=== PATIENT | female | born 1945 | race Caucasian/White ===

== ENCOUNTER 2022-05-19 12:00 | Emergency (ER) | payer MEDICARE, MEDICAID, SELFPAY ==
[2022-05-19 12:03] VITALS: BP 153/80; PULSE 94; RESP 16; TEMP 36.2; O2SAT 95; BMI 41.8
--- NOTE | 2022-05-19 12:43 | CT_ITS ---
EXAM: CT HEAD WITHOUT INTRAVENOUS CONTRAST CLINICAL INDICATION: Injury/Pain TECHNIQUE: Multiple axial images were obtained of the head without intravenous contrast. This CT exam was performed using one or more of the following dose reduction techniques: automated exposure control, adjustment of the mA and/or kV according to patient size, and/or use of iterative reconstruction technique. This report was created using [employer] report generation technology. COMPARISON: None. FINDINGS: BRAIN AND EXTRA-AXIAL SPACES: Prominence of the cortical sulci and ventricles related to volume loss change. No intra- or extra-axial hemorrhage. No evidence of acute infarct. No intracranial mass or mass effect. There is preservation of the townsend/white matter interface. Posterior fossa structures are unremarkable. Basal cisterns are patent. BONES/JOINTS: Normal. No discrete lytic or blastic abnormalities. SINUSES: Unremarkable as visualized. No acute sinusitis. MASTOID AIR CELLS: Normal. Clear. ORBITS: Visualized globes, extraocular muscles, optic nerves and retrobulbar fat appear unremarkable. CT/Brain/Head without Contrast IMPRESSION: 1. No acute intracranial abnormality. 2. Senescent changes. Electronically Signed: Jovon Pinto MD at 13:23 EST ,
--- NOTE | 2022-05-19 13:00 | EDS_ITS ---
HPI History of Present Illness Chief Complaint: Head Injury Informant: patient Onset/Context/Timing Onset: Today Mechanism/Context: Fall Quality of Pain: Dull Location: Head Worsened by: Nothing Relieved by: Nothing Associated Symptoms Associated Symptoms: Negative for Parasthesias, Weakness, Loss of function, Inability to ambulate or Loss of consciousness Narrative Narrative: Patient presents after a fall that occurred today. Patient states she was sitting on her bed when she fell forward. Patient states she hit her head on the nightstand. Patient denies any loss of consciousness. Patient denies any paresthesias or weakness. Patient states her pain is mainly over the left side of her head. Patient states nothing makes it better nothing makes it worse. Patient denies any visual changes. Patient states her last tetanus was more than 10 years ago. Tetanus Immunization: >10 years [facility] Medical History (Updated 05/19/22 @ 14:[address] Vinny Flowers DO) Anxiety Hypertension Allergy/AdvReac Type Severity Reaction Status Date / Time Sulfa (Sulfonamide Allergy Rash Verified 05/19/22 13:02 Antibiotics) Surgical History (Updated 05/19/22 @ 13:[address] Vinny Flowers DO) History of total left hip replacement Social History Smoking Status: Never smoker ROS ROS ED Constitutional Constitutional ED: Denies chills or fever(s) Eyes Eyes: Denies blurry vision or change in vision ENT ENT ED: Denies rhinorrhea or sore throat Cardiovascular Cardiovascular: Denies chest pain or palpitations Respiratory/Chest Respiratory/Chest: Denies cough or dyspnea Gastrointestinal Gastrointestinal: Denies nausea or vomiting Genitourinary Genitourinary ED: Denies dysuria or hematuria Musculoskeletal Musculoskeletal: Denies back pain or neck pain Integumentary Denies abscess or rash Neurologic Neurologic: Denies headache(s) or weakness Allergic/Immunologic Allergic/Immunologic ED: Denies mouth swelling or urticaria EXAM Physical Exam Const Vital Signs: 05/19/22 12:03 Temperature 97.2 F L Temperature Source Oral Pulse Rate 94 Respiratory Rate 16 Blood Pressure 153/80 H Blood Pressure Mean 104 Pulse Ox 95 Oxygen Delivery Method Room Air Positive well nourished and well developed General Appearance ED: well developed and NAD HEENT HEENT Narrative: There is some mild tenderness over the left parietal scalp. There is a 3 cm full-thickness linear laceration. There is mild gapping of the wound margins. There is no active bleeding. There is no bony crepitance or step-off. There are no foreign bodies visualized. Eyes PERRL and EOMs intact bilaterally Neck full ROM Resp normal respiratory effort and clear to auscultation bilaterally Cardio regular rhythm Rate: regular rate GI normal to inspection, nondistended, normoactive bowel sounds and non-tender Palpation: soft Neuro oriented x3, CN's II-XII intact bilaterally, moves all extremities, no focal motor deficits and no sensory deficits noted Sensorium / Orientation: alert Motor Exam: strength 5/5 throughout MDM MDM MDM Narrative Medical decision making narrative: CT scan of the brain was obtained. There is no acute intracranial abnormality. This was interpreted by the radiologist and reviewed by myself. The wound was cleaned and irrigated with copious amounts of normal saline. LET gel was applied to the wound. The wound was anesthetized with 2% lidocaine with epinephrine. The wound was closed with 5 simple rubio. Patient tolerated the procedure well. Bacitracin dressing was applied. Patient was instructed to follow-up with her primary care physician in 5 to 7 days. Patient understood and was agreeable with the plan. All questions were answered. Radiography Diagnostic Testing: Clinical Impression(s) from Imaging Studies Brain CT 05/19/22 12:43 IMPRESSION: 1. No acute intracranial abnormality. 2. Senescent changes. Electronically Signed: Jovon Pinto MD at 13:23 EST Reading Location ID and State: [facility] / [place] Tel , Service support , Discharge Plan Triage Chief Complaint: Head Injury ED Provider: Vinny Flowers Dx/Rx/DC Orders Clinical Impression: Laceration of scalp, Closed head injury Instructions: ED Head Injury (Adult), ED Laceration Scalp Stitches or Rubio Primary Care Provider: Care Physician,No Primary Referrals: Trang Aguilar MD [Med Staff - Video Network Engineer] - 5 Days for suture removal Care Physician,No Primary [Primary Care Provider] - Disposition Disposition: Home, Self Care
[2022-05-19] MEDS: Diphth,Pertuss(Acell),Tet Vac 0.5 ML Vial IM (13:32)
[2022-05-19] MEDS: Lidocaine 2% /Epi 1:100 (20ml) 20 ML VIAL INFILT (13:33)
[2022-05-19] MEDS: Lidocaine/Epi/Tetracaine 50 ML 1 APPLIC TOPICAL (13:33)
[2022-05-19 14:55] VITALS: BP 150/70; PULSE 90; RESP 16; O2SAT 96
== END 2022-05-19 15:19 | disposition home or self-care (01) ==
PROVIDERS: Emergency Provider Emergency Medicine; Visit Provider Emergency Medicine
DX: S01.01XA Laceration without foreign body of scalp, initial encounter (principal); W19.XXXA Unspecified fall, initial encounter
CPT/HCPCS: 12002; 70450; 90715; 96372; 99284

== ENCOUNTER 2022-09-22 13:24 | Observation (INO) | payer MEDICARE, MEDICAID, SELFPAY ==
[2022-09-22] VITALS (8 sets, daily range): BP systolic 100–168; BP diastolic 56–75; PULSE 84–109; RESP 15–22; TEMP 36.4–37; O2SAT 94–100; BMI 41.2; BMI 40.8
--- NOTE | 2022-09-22 13:45 | ED.RN ---
PATIENT COVERED IN URINE AND STOOL. PATIENT REQUESTING PANTS BE THROWN AWAY. PATIENT HAD A CLOTH TO TRY TO CLEAN UP STOOL AT HOME. WIPES AND WASH CLOTH USED TO CLEAN PATIENT. ADULT DIAPER AND GOWN PLACED.
--- NOTE | 2022-09-22 13:51 | CT_ITS ---
HISTORY: trauma. TECHNIQUE: Multiple axial images were obtained of the head without intravenous contrast. A radiation dose optimization technique was used for this scan. 256 images. COMPARISON: 05/19/2022. FINDINGS: BRAIN PARENCHYMA: Multiple foci and zones of low attenuation in the bilateral cerebral white matter compatible with chronic small vessel ischemic gliosis. No acute intra-axial hemorrhage identified. CSF SPACES: Generalized volume loss. No midline shift or other significant mass effect. No acute extra-axial hemorrhage seen. Chronic calcifications along the falx and tentorium. OTHER: Intact calvarium. No significant air fluid levels in the paranasal sinuses or mastoid air cells. Left lens resection. CT/Brain/Head without Contrast IMPRESSION: No acute intracranial process identified. Chronic involutional and white matter changes. Electronically Signed: Madelyn Solorzano MD at 15:08 EDT ,
--- NOTE | 2022-09-22 13:51 | RAD_ITS ---
HISTORY: fall. TECHNIQUE: XR Pelvis 1 or 2 Views. COMPARISON: None. FINDINGS: OSSEOUS STRUCTURES: No acute displaced fracture identified. Note that overlapping bowel shadows may obscure osseous detail. JOINT SPACES: Right hip arthroplasty in place without dislocation. Severe arthritis of the left hip with severe joint space narrowing, sclerosis, osteophytes, and acetabular remodeling. No left hip dislocation. SOFT TISSUES: Right hip heterotopic ossification noted. RAD/Pelvis 1 or 2 Views IMPRESSION: No acute displaced fracture or dislocation identified. Severe left hip arthritis. Electronically Signed: Madelyn Solorzano MD at 15:30 EDT ,
--- NOTE | 2022-09-22 13:51 | RAD_ITS ---
HISTORY: fall. TECHNIQUE: XR Chest 1 View. COMPARISON: None. FINDINGS: CARDIOMEDIASTINAL BORDERS: Cardiac silhouette within normal limits in size. Mediastinal contour unremarkable with calcification of the aorta. LUNGS: Low lung volumes with mild atelectasis or scarring. PLEURA: No pleural effusion or pneumothorax seen. OSSEOUS STRUCTURES: Degenerative change. RAD/Chest 1 View (Portable) IMPRESSION: No acute cardiopulmonary process identified. Electronically Signed: Madelyn Solorzano MD at 15:33 EDT ,
--- NOTE | 2022-09-22 13:52 | EKG12_ITS ---
Test Reason : FALL Blood Pressure : / mmHG Vent. Rate : 095 BPM Atrial Rate : 095 BPM P-R Int : 184 ms QRS Dur : 142 ms QT Int : 400 ms P-R-T Axes : 066 -38 047 degrees QTc Int : 502 ms Normal sinus rhythm Left axis deviation Right bundle branch block Abnormal ECG Confirmed by BONG PIERSON, SYDNEE ([id number]), editor sound MICHELLE BRAMBILA ([id number]) on 09/24/2022 11:15:56 AM Referred By: Confirmed By:RONNELL WOODY MD
--- NOTE | 2022-09-22 13:53 | EX.ED.GENINJ ---
HPI History of Present Illness Chief Complaint: Fall Detail of Chief Complaint: Fall with injury to left hip Informant: patient Narrative Narrative: Patient presents to the emergency department with complaint of a fall and injury to her left hip. Patient cannot really tell me how she fell last night but ended up behind her bedroom door on the floor and could not get back up. Her boyfriend found her this morning on the floor. EMS was called. Patient lives alone. Patient unsure if she hit her head. She denies neck pain. She denies chest pain or abdominal pain. Patient states she could not get up and spent the night on the floor. She tells me she had a right hip replacement in the past. [facility] Medical History (Updated 09/22/22 @ 16:[address] Diana Rodriguez DO) Anxiety Hypertension Allergy/AdvReac Type Severity Reaction Status Date / Time Sulfa (Sulfonamide Allergy Rash Verified 09/22/22 13:49 Antibiotics) Surgical History History of total left hip replacement Social History Smoking Status: Never smoker ROS ROS ED Review of Systems ROS Unobtainable: other Constitutional Constitutional ED: Reports lethargy; Denies chills, fever(s), sweats or weight loss Eyes Eyes: Denies blurry vision, change in vision or diplopia ENT ENT ED: Denies rhinorrhea or sore throat Cardiovascular Cardiovascular: Denies chest pain, orthopnea or racing heartbeat Respiratory/Chest Respiratory/Chest: Denies cough, dyspnea, dyspnea on exertion, orthopnea or sputum Gastrointestinal Gastrointestinal: Denies abdominal pain, diarrhea, nausea or vomiting Genitourinary Genitourinary ED: Denies dysuria, hematuria or urinary frequency Musculoskeletal Musculoskeletal: Reports other Details: Left hip pain ; Denies arthralgias, back pain, myalgias or neck pain Integumentary Denies abscess, Abrasions or rash Neurologic Neurologic: Denies headache(s) or weakness Psychiatric Psychiatric: Denies anxiety, depression or suicidal thoughts Endocrine Endocrinology: Denies polydipsia, polyphagia or polyuria Hematologic/Lymphatic Hematologic/Lymphatic: Denies easy bleeding, easy bruising or lymphadenopathy Allergic/Immunologic Allergic/Immunologic ED: Denies mouth swelling, tongue swelling or urticaria EXAM Physical Exam Const Vital Signs: 09/22/22 13:24 09/22/22 13:39 09/22/22 13:49 Temperature 97.6 F L 97.6 F L Temperature Source Temporal Pulse Rate 103 H 109 H Respiratory Rate 18 15 Respiratory Effort Normal Non-Labored Respiratory Depth Normal Respiratory Pattern Normal Blood Pressure 110/60 147/73 H Blood Pressure Mean 76 97 Pulse Ox 100 100 97 Oxygen Delivery Method Room Air Room Air Room Air 09/22/22 15:24 Temperature Temperature Source Pulse Rate 99 Respiratory Rate 22 H Respiratory Effort Respiratory Depth Respiratory Pattern Blood Pressure 100/75 Blood Pressure Mean 83 Pulse Ox 97 Oxygen Delivery Method Room Air Positive well nourished and well developed General Appearance ED: well developed and NAD HEENT Reports TM's clear and moist mucous membranes normocephalic and atraumatic; Negative for trauma or tenderness Tympanic Membrane ED: Yes TM's clear Eyes PERRL and EOMs intact bilaterally General Eye ED: Negative for pale conjunctiva or scleral icterus Neck no lymphadenopathy, supple and no JVD General: Negative for tenderness Chest Wall inspection of chest normal and palpation of chest normal Chest: Negative for tenderness Resp normal respiratory effort and clear to auscultation bilaterally Effort and Inspection: Negative for respiratory distress or pain with movement Auscultation: Negative for rhonchi, wheezes or diminished lung sounds Cardio regular rate, regular rhythm, S1 normal heart sound, S2 normal heart sound and no murmurs Peripheral Pulses: pulses 2+ throughout GI normal to inspection, nondistended, normoactive bowel sounds, soft to palpation, non-tender, non-distended and no masses Back/Spine no CVA tenderness and no thoracic nor lumbar tenderness Extremity Extremity Narrative: Left hip held slightly flexed with tenderness palpation over the hip and femur. Knee is held in flexion also for the extremity is shortened and slightly internally rotated. Neurovascularly intact. General Extremety ED: Negative for edema General Extremity: Negative for edema Neuro oriented x3, CN's II-XII intact bilaterally, no sensory deficits noted and gait normal Sensorium / Orientation: awake, alert, oriented to person, oriented to place and oriented to time Motor Exam: strength 5/5 throughout and strength abnormal Psych mental status grossly normal Skin no rashes or lesions noted and no wounds MDM MDM MDM Narrative Medical decision making narrative: Patient with a fall that occurred last evening. Patient unable to get up or ambulate after. CBC with differential obtained showed a white count 13.5, hemoglobin 14.8, platelet count 247. Chemistries unremarkable. CPK was 335. Patient had CT scan of the brain without contrast that showed chronic involutional changes. X-rays of the left hip and pelvis as well as left femur obtained showed no fractures but did show degenerative changes. Patient not able to ambulate and has pain with movement and therefore I did order a CT of the hip to evaluate further. Patient will require admission and I spoke with hospitalist to evaluate patient for admission. Hospitalist was Dr. Franks. Lab Data Attestation: I reviewed the patient's lab results. Labs: Laboratory Results - last 24 hr 09/22/22 09/22/22 14:15 14:15 WBC 13.5 H RBC 5.67 H Hgb 14.8 Hct 47.8 H MCV 84.3 MCH 26.1 L MCHC 31.0 L RDW Std Deviation 51.2 H RDW Coeff of Vitaliy 16.8 H Plt Count 247 MPV 10.6 Immature Gran % (Auto) 0.300 Neut % (Auto) 90.2 H Lymph % (Auto) 3.9 L Custer % (Auto) 5.3 Eos % (Auto) 0.1 Baso % (Auto) 0.2 Absolute Neuts (auto) 12.1 H Absolute Lymphs (auto) 0.52 L Nucleated RBC % 0 Differential Comment SCANNED Sodium 142 Potassium 4.2 Chloride 114 H Carbon Dioxide 21.0 Anion Gap 7 BUN 20 H Creatinine 0.62 Estim Creat Clear Calc 43.40 Est GFR (MDRD) Af Amer 119 Est GFR (MDRD) Non-Af 99 BUN/Creatinine Ratio 32.2 H Glucose 121 H Calcium 9.7 Total Creatine Kinase 335 H Troponin I High Sens 45 Radiography Diagnostic Testing: Clinical Impression(s) from Imaging Studies Brain CT 09/22/22 13:51 IMPRESSION: No acute intracranial process identified. Chronic involutional and white matter changes. Electronically Signed: Madelyn Solorzano MD at 15:08 EDT , Chest X-Ray 09/22/22 13:51 IMPRESSION: No acute cardiopulmonary process identified. Electronically Signed: Madelyn Solorzano MD at 15:33 EDT , Pelvis X-Ray 09/22/22 13:51 IMPRESSION: No acute displaced fracture or dislocation identified. Severe left hip arthritis. Electronically Signed: Madelyn Solorzano MD at 15:30 EDT , Femur X-Ray 09/22/22 13:54 IMPRESSION: No acute fracture or dislocation identified in the left femur. Severe left hip arthritis. Electronically Signed: Madelyn Solorzano MD at 15:32 EDT , Three-view x-rays left hip and pelvis obtained interpreted by myself as no acute fractures. Radiology in agreement. Radiology noted degenerative changes of the hip. 2 view x-rays of the left femur obtained interpreted by myself as no acute fractures but patient did have knee arthrosis. Radiology in agreement. EKG Initial EKG: Attestation: I personally reviewed and interpreted this EKG as follows: Comments: Sinus rhythm with a rate of 95 bpm with right bundle branch block Discharge Plan Triage Chief Complaint: Fall ED Provider: Diana Rodriguez Dx/Rx/DC Orders Clinical Impression: Fall, Contusion of hip, left, Contusion of knee, left, Inability to walk Primary Care Provider: Care Physician,No Primary Referrals: Care Physician,No Primary [Primary Care Provider] - Disposition Disposition: [facility]
--- NOTE | 2022-09-22 13:54 | RAD_ITS ---
HISTORY: fall. TECHNIQUE: XR Femur Min 2 Views. COMPARISON: None. FINDINGS: BONES : No acute fracture identified. Degenerative sclerosis, osteophytes, and subchondral cysts of the left hip. Probable bone island in the distal femur. JOINTS: No dislocation. Severe joint space narrowing of the hip with acetabular remodeling. Degenerative changes of the knee. Limited crosstable lateral view due to body habitus. SOFT TISSUES: Peripheral vascular disease noted. RAD/Femur Min 2 Views IMPRESSION: No acute fracture or dislocation identified in the left femur. Severe left hip arthritis. Electronically Signed: Madelyn Solorzano MD at 15:32 EDT ,
[2022-09-22] MEDS: 0.9% Normal Saline 1,000 ML 150 ML IV (14:18)
[2022-09-22 14:30] LABS: Absolute Lymphocyte Count 0.52 X10^3/uL (0.83-4.51); Absolute Neutrophil Count 12.1 X10^3/uL (2.0-7.7); Basophil# 0.03 X10^3/uL; Basophil% 0.2 % (0-1); Eosinophil# 0.02 X10^3/uL; Eosinophils% 0.1 % (0-5); Hematocrit 47.8 % (37-47); Hemoglobin 14.8 g/dL (12.0-15.0); Lymphocyte # 0.52 X10^3/ul (0.83-4.51); Lymphocyte % 3.9 % (19-41); Mean Corpuscular Hgb 26.1 pg (27.0-32.0); Mean Corpuscular Volume 84.3 fL (81-99); Mean Platelet Vol. 10.6 fl (6.2-12.0); Monocyte# 0.72 X10^3/uL; Monocyte% 5.3 % (0-10); NRBC Flagged by Analyzer 0 % (0-5); Neutrophil # 12.13 X10^3/uL (2.7-7.7); Neutrophil % 90.2 % (47-70); POSITIVE DIFFERENTIAL YES; Platelet Count 247 K/mm3 (150-450); RBC Distribution Width CV 16.8 % (11.6-14.6); RBC Distribution Width SD 51.2 fl (35.1-43.9); Red Blood Count 5.67 M/mm3 (4.2-5.4); White Blood Count 13.5 K/mm3 (4.4-11.0)
[2022-09-22 14:32] LABS: Differential Indicated SCAN CRITERIA MET
[2022-09-22 14:42] LABS: Anion Gap 7 (5-15); BUN 20 mg/dL (7-18); BUN/Creat Ratio 32.2 RATIO (10-20); CPK Total, Creatine Kinase 335 U/L (26-192); Calcium,Total 9.7 mg/dL (8.5-10.1); Chloride 114 mmol/L (98-107); Creatinine, Serum 0.62 mg/dL (0.55-1.02); EST Glomerular Filtration Rate 99 mL/min (>60); Est Glom Filt Rate - Afr Amer 119 mL/min (>60); Glucose 121 mg/dL (74-106); Potassium 4.2 mmol/L (3.5-5.1); Sodium Level 142 mmol/L (136-145); Troponin-I HS 45 pg/mL (3.0-54.0)
[2022-09-22 14:55] LABS: Differential Comment SCANNED
--- NOTE | 2022-09-22 15:59 | CT_ITS ---
EXAM: CT LEFT LOWER EXTREMITY WITHOUT INTRAVENOUS CONTRAST CLINICAL INDICATION: pain, inability to ambulate TECHNIQUE: Helically acquired images were obtained of the left lower extremity without intravenous contrast. 2-D reformats were performed by the technologist. This CT exam was performed using one or more of the following dose reduction techniques: automated exposure control, adjustment of the mA and/or kV according to patient size, and/or use of iterative reconstruction technique. This report was created using [employer] report generation technology. RADIATION DOSE: CTDIvol = 38.44 mGy, DLP = 2016.35 mGy-cm COMPARISON: XR 4.1. FINDINGS: BONES/JOINTS: Severe degenerative findings of the left hip. Degenerative change of the lumbar spine. No acute fracture. No subluxation. Normal alignment. SOFT TISSUES: Unremarkable. No soft tissue swelling or gas. No radiopaque foreign body. VASCULATURE: Vascular calcifications. OTHER FINDINGS: Diverticulosis. CT/Extremity Lower without Contra IMPRESSION: Severe degenerative findings of the left hip. Electronically Signed: Fly Solomon MD at 17:41 EDT ,
--- NOTE | 2022-09-22 18:35 | HP.PCM.HOS_ITS ---
HPI - General General Date of Admission: 09/22/22 Date of Service: 09/22/22 Chief Complaint: Fall with debility HPI Narrative MORRIS MUNOZ, is a 77 F who presents to the emergency room at [facility] after being brought in by squad, she was found in her bedroom laying up against her door, patient states she does not remember how she fell, she is a poor informant. The squad had to go through her bedroom window to allo w her to be brought out of her room. Patient states that she does not ambulate far, she uses a walker, she does not have a family physician-in the medical record here it appears that she had an appointment in May with the PCP but did not keep that appointment. Imaging studies done in the emergency room showed severe arthritis of the left hip, there is no obvious fracture noted. Patient takes no medications at home. Lab work was remarkable for a white blood cell count at 13.5, patient's chemistry profile was remarkable for BUN of 20. CPK was elevated at 335. Patient will be placed into observation status for generalized debility, more than likely she will have to be placed in a skilled care facility for rehab services. [facility] Medical History Anxiety Hypertension Home Medications NK 09/22/22 [History Last Taken Unknown] Allergy/AdvReac Type Severity Reaction Status Date / Time Sulfa (Sulfonamide Allergy Rash Verified 09/22/22 13:49 Antibiotics) Surgical History History of total left hip replacement Social History Smoking Status: Never smoker ROS ROS Narrative Review of systems was unobtainable due to the patient's mild confusion at this time, she is a poor informant, she denies any chronic medical problems however. Vital Signs Vital Signs Vital Signs: 09/22/22 13:24 09/22/22 13:39 09/22/22 13:49 Temperature 97.6 F L 97.6 F L Temperature Source Temporal Pulse Rate 103 H 109 H Respiratory Rate 18 15 Respiratory Effort Normal Non-Labored Respiratory Depth Normal Respiratory Pattern Normal Blood Pressure 110/60 147/73 H Blood Pressure [BP] Blood Pressure Mean 76 97 Blood Pressure Mean [BP] Blood Pressure Source [BP] Pulse Ox 100 100 97 Oxygen Delivery Method Room Air Room Air Room Air 09/22/22 15:24 09/22/22 16:34 09/22/22 17:01 Temperature 98.5 F Temperature Source Temporal Pulse Rate 99 89 84 Respiratory Rate 22 H 16 16 Respiratory Effort Respiratory Depth Respiratory Pattern Blood Pressure 100/75 168/66 H 145/72 H Blood Pressure [BP] Blood Pressure Mean 83 100 96 Blood Pressure Mean [BP] Blood Pressure Source [BP] Pulse Ox 97 97 94 Oxygen Delivery Method Room Air Room Air Room Air 09/22/22 17:25 09/22/22 16:55 Temperature 97.7 F L Temperature Source Oral Pulse Rate 86 Respiratory Rate 18 Respiratory Effort Normal Respiratory Depth Normal Respiratory Pattern Normal Blood Pressure Blood Pressure [BP] 154/74 H Blood Pressure Mean Blood Pressure Mean [BP] 100 Blood Pressure Source [BP] Monitor Pulse Ox 97 Oxygen Delivery Method Room Air Room Air Weight Weight: 114.8 kg Body Mass Index (BMI) 40.8 Physical Exam Const alert, oriented x3 and no apparent distress Constitutional Narrative: Patient is morbidly obese HEENT head/scalp atraumatic and hearing grossly normal bilaterally Eyes PERRL, EOMs intact bilaterally and conjunctivae normal Neck supple, no JVD and no carotid bruits Resp normal respiratory effort, no retractions, no use of accessory muscles and clear to auscultation bilaterally Cardio regular rate, regular rhythm, S1 normal heart sound, S2 normal heart sound, no murmurs and no rub GI normal to inspection, nondistended, normoactive bowel sounds, soft to palpation, non-tender and non-distended GI Narrative: Patient is morbidly obese Neuro oriented x3, CN's II-XII intact bilaterally, moves all extremities and no focal motor deficits Neuro Narrative: Patient was not ambulated. Psych Psych Narrative: Patient is a poor informant, she does not keep on track to when she discusses things. Results Lab / Micro Data Result Diagrams: 09/22/22 14:15 09/22/22 14:15 Labs: Laboratory Results - last 24 hr 09/22/22 14:15: WBC 13.5 H, RBC 5.67 H, Hgb 14.8, Hct 47.8 H, MCV 84.3, MCH 26.1 L, MCHC 31.0 L, RDW Std Deviation 51.2 H, RDW Coeff of Vitaliy 16.8 H, Plt Count 247, MPV 10.6, Immature Gran % (Auto) 0.300, Neut % (Auto) 90.2 H, Lymph % (Au to) 3.9 L, [place] % (Auto) 5.3, Eos % (Auto) 0.1, Baso % (Auto) 0.2, Absolute N euts (auto) 12.1 H, Absolute Lymphs (auto) 0.52 L, Nucleated RBC % 0, Differential Comment SCANNED 09/22/22 14:15: Sodium 142, Potassium 4.2, Chloride 114 H, Carbon Dioxide 21.0, Anion Gap 7, BUN 20 H, Creatinine 0.62, Estim Creat Clear Calc 43.40, Est GFR (MDRD) Af Amer 119, Est GFR (MDRD) Non-Af 99, BUN/Creatinine Ratio 32.2 H, Glucose 121 H, Calcium 9.7, Total Creatine Kinase 335 H, Troponin I High Sens [address] 09/22/22 13:51 IMPRESSION: No acute intracranial process identified. Chronic involutional and white matter changes. Electronically Signed: Madelyn Solorzano MD at 15:08 EDT , Chest X-Ray 09/22/22 13:51 IMPRESSION: No acute cardiopulmonary process identified. Electronically Signed: Madelyn Solorzano MD at 15:33 EDT , Pelvis X-Ray 09/22/22 13:51 IMPRESSION: No acute displaced fracture or dislocation identified. Severe left hip arthritis. Electronically Signed: Madelyn Solorzano MD at 15:30 EDT , Femur X-Ray 09/22/22 13:54 IMPRESSION: No acute fracture or dislocation identified in the left femur. Severe left hip arthritis. Electronically Signed: Madelyn Solorzano MD at 15:32 EDT , Lower Extremity CT 09/22/22 15:59 IMPRESSION: Severe degenerative findings of the left hip. Electronically Signed: Fly Solomon MD at 17:41 EDT , Assessment & Plan Assessment/Plan (1) Contusion of knee, left: PLAN: Plan 1. Mechanical fall with resultant contusions on a backdrop of debility-I suspect patient is severely limited at home, she states that she uses her walker and walks around her apartment but does not leave the apartment. She states her apartment is on 1 floor. [facility], she will be seen by PT and OT and more than likely she will need to go to a [facility] facility for rehab services. #2 morbid obesity-complicates care, medical course, recovery, and prognosis. #3 elevated CPK-secondary to contusion, patient is not in rhabdomyolysis Total clinical time spent by myself addressing the patient's medical issues, reviewing all her data, and collaborating with the patient's care team: 55 minutes Charges/Coding Visit Charges Inpatient E&M: 47976 Init Hosp L2
[2022-09-22] MEDS: Nystatin Powder 15gm Bottle 1 APPLIC TOPICAL (22:20)
[2022-09-22] MEDS: Famotidine 20 MG Tablet PO (22:21)
[2022-09-23 04:05] VITALS: BP 129/57; PULSE 88; RESP 18; TEMP 37.1; O2SAT 96
[2022-09-23 06:57] LABS: ALB/GLOB Ratio 1.1 RATIO (0.9-2.4); AST(SGOT) 24 U/L (15-37); Alanine Aminotransfer ALT/SGPT 13 U/L (13-56); Albumin, Serum 2.9 g/dL (3.2-5.0); Alkaline Phosphatase 68 U/L (45-117); Anion Gap 5 (5-15); BUN 19 mg/dL (7-18); BUN/Creat Ratio 33.6 RATIO (10-20); Calcium,Total 8.7 mg/dL (8.5-10.1); Chloride 114 mmol/L (98-107); Creatinine, Serum 0.56 mg/dL (0.55-1.02); EST Glomerular Filtration Rate 110 mL/min (>60); Est Glom Filt Rate - Afr Amer 133 mL/min (>60); Globulin 2.6 g/dL (2.2-4.2); Glucose 102 mg/dL (74-106); Potassium 3.5 mmol/L (3.5-5.1); Protein, Total 5.5 g/dL (6.4-8.2); Sodium Level 142 mmol/L (136-145)
[2022-09-23 07:54] VITALS: BP 131/56; PULSE 77; RESP 16; TEMP 36.9; O2SAT 94
[2022-09-23] MEDS: Famotidine 20 MG Tablet PO ×2 (09:02→20:08)
[2022-09-23] MEDS: Enoxaparin 40 MG/0.4 ML Syringe SC (09:02)
[2022-09-23] MEDS: Nystatin Powder 15gm Bottle 1 APPLIC TOPICAL ×2 (09:03→20:08)
[2022-09-23] MEDS: Acetaminophen 325 MG Tablet 650 MG PO (09:04)
[2022-09-23 12:03] VITALS: BP 133/66; PULSE 74; RESP 16; TEMP 36.2; O2SAT 96
[2022-09-23 14:02] VITALS: BP 137/51; PULSE 74; RESP 16; TEMP 36.6; O2SAT 97
--- NOTE | 2022-09-23 17:35 | PCM.PN.HOSP ---
Reason for Visit Reason for Visit: Diagnoses Contusion of left knee, initial encounter (09/22/22) Subjective Subjective Seen and examined today, she will be working with PT and OT, I think it is very likely she will need to go to a [facility]iary facility for short-term inpatient rehab services. I have elected to start the patient on some prednisone today for her left hip discomfort, she has severe left hip osteoarthritis. Objective Data Objective Data Vital Signs: Vital Signs Temp Pulse Resp BP Pulse Ox O2 Del Method 97.8 F 74 16 137/51 H 97 Room Air 09/23/22 14:02 09/23/22 14:02 09/23/22 14:02 09/23/22 14:02 09/23/22 14:02 09/23/22 14:02 Oxygen Delivery Method Room Air Weight: 114.8 kg Body Mass Index (BMI) 40.8 Intake & Output: Intake and Output for Last 24 Hours 09/21/22 09/22/22 09/23/22 23:59 23:59 23:59 Intake Total 1000 / 1000 650 / 650 Output Total 750 / 750 Balance 1000 / 1000 -100 / -100 Lab / Micro Data Result Diagrams: 09/22/22 14:15 09/23/22 05:25 Labs: Laboratory Results - last 24 hr 09/23/22 05:25: Sodium 142, Potassium 3.5, Chloride 114 H, Carbon Dioxide 23.0, Anion Gap 5, BUN 19 H, Creatinine 0.56, Estim Creat Clear Calc 43.40, Est GFR (MDRD) Af Amer 133, Est GFR (MDRD) Non-Af 110, BUN/Creatinine Ratio 33.6 H, Glucose 102, Calcium 8.7, Total Bilirubin 0.60, AST 24, ALT 13, Alkaline Phosphatase 68, Total Protein 5.5 L, Albumin 2.9 L, Globulin 2.6, Albumin/Globulin Ratio 1.1 Radiography Diagnostic Testing: Radiology Impression Lower Extremity CT 09/22/22 15:59 IMPRESSION: Severe degenerative findings of the left hip. Electronically Signed: Fly Solomon MD at 17:41 EDT , Physical Exam Const alert, oriented x3, no apparent distress and healthy appearing General Appearance: cooperative, well kempt and well developed Orientation / Consciousness: awake, oriented to person, oriented to place and oriented to time HEENT normocephalic, head/scalp atraumatic and moist oral mucous membranes Eyes PERRL, EOMs intact bilaterally and conjunctivae normal Neck supple, no JVD, thyroid normal and no carotid bruits General: trachea midline Resp normal respiratory effort, no retractions, no use of accessory muscles and clear to auscultation bilaterally Auscultation: Negative for rales, rhonchi or wheezes Cardio regular rate, regular rhythm, S1 normal heart sound, S2 normal heart sound, no murmurs, no rub and no gallops GI normal to inspection, nondistended, normoactive bowel sounds, soft to palpation, non-tender and non-distended GI Narrative: Patient is morbidly obese Extremity no clubbing, cyanosis or edema Skin no rashes or lesions noted General Skin Exam: no breakdown Neuro oriented x3, CN's II-XII intact bilaterally, no focal motor deficits and no sensory deficits noted Neuro Narrative: Patient was not ambulated Sensorium / Orientation: awake and alert Speech: speech normal Psych affect normal Assessment & Plan Assessment/Plan (1) Contusion of hip, left: (2) Contusion of knee, left: PLAN: Plan 1. Mechanical fall with resultant contusions on a backdrop of debility-I strongly suspect patient will have to go to a penitentiary facility for inpatient rehab services, I will talk with discharge planning tomorrow #2 morbid obesity-complicates care, medical course, recovery, and prognosis. #3 elevated CPK-secondary to contusion, patient is not in rhabdomyolysis Total clinical time spent by myself addressing the patient's medical issues, reviewing all her data, and collaborating with the patient's care team: 35 minutes Charges/Coding Visit Charges Inpatient E&M: 27077 Subs Hosp L2
[2022-09-23 20:00] VITALS: BP 131/58; PULSE 78; RESP 16; TEMP 36.6; O2SAT 94
[2022-09-23] MEDS: oxyCODONE 5 MG Tablet PO (20:07)
[2022-09-24 02:30] VITALS: BP 138/63; PULSE 87; RESP 15; TEMP 36.6; O2SAT 93
[2022-09-24] MEDS: 0.9% Saline Lock 10 ML Syringe IV (02:49)
[2022-09-24 09:33] VITALS: BP 131/68; PULSE 83; RESP 16; TEMP 36.9; O2SAT 94
[2022-09-24] MEDS: Enoxaparin 40 MG/0.4 ML Syringe SC (09:34)
[2022-09-24] MEDS: Famotidine 20 MG Tablet PO ×2 (09:34→21:43)
[2022-09-24] MEDS: Nystatin Powder 15gm Bottle 1 APPLIC TOPICAL ×2 (09:35→21:43)
--- NOTE | 2022-09-24 10:15 | CASEMGMT ---
RN MIKO NOTE: Intro role of CM to patient and [facility] form explained re: Observation status for treatment of debility.? Explained hospitalization will be paid per?her insurance policy for Outpatient billing?and condition will continue to be evaluated for Inpt necessity. Also let pt know that [facility] sends paper in the billing packet with their phone number if questions arise. Discussed Pharmacy section of [facility] form and self administered medication guideline.? Pt verbalizes understanding and does not have further questions. ?Form signed, copy made and placed in chart, and original given to pt. Discussed discharge planning. Pt states she will need to go somewhere for therapy prior to discharging home. She states she lives alone and that her fiance lives close, but he is unable to help w/much personal care/lifting. She does not know what SNF she would like to go to. She was made aware a list will be provided for her to review and asked for her to select top 3 choices. She voices appreciation. Noted that pt had refused to work w/therapy this w/e. Discussed importance of therapy eval for SNF/insurance approval. She states she is willing to work with them today. Call placed to [facility] in therapy and she was made aware. She states they will be over to see pt next. Destiney PINA, made aware. Renée MATTHEW RN, CM
--- NOTE | 2022-09-24 11:34 | CASEMGMT ---
Addendum entered by Destiney Ibarra 09/24/22 15:08: YOVANI checked back in with Rosana at [facility]. Rosana informed pt has been accepted at [facility]. Precert to be started today. SW updated pt on acceptance and informed will just have to wait on insurance auth now. Pt voiced understanding. PLAN: TCU, pending precert. Original Note: Social Work SW notified by FAUSTINO Denise that pt likely needing SNF. SW in to pt room to meet with pt and begin discharge planning. SW introduced self and role at the hospital. Pt agreeable to discussing discharge planning. A list of SNF providers including quality and resource use data consistent with the patient?s preferred geographic region, medical needs, and insurance network were provided from the [employer] Guide. Pt reviewed list stated preferences for SNF in order is as follows: [facility], [facility], then [facility]. YOVANI sent referral to Rosana at [facility]. Rosana to review and share if can accept or not. Plan: TCU, pending acceptance and precert SHERIF Rodríguez
--- NOTE | 2022-09-24 12:22 | PCM.PN.HOSP ---
Reason for Visit Reason for Visit: Diagnoses Contusion of left hip, initial encounter (09/22/22) Contusion of left knee, initial encounter (09/22/22) Subjective Subjective Patient was seen and examined today, according to aids social worker, she consented to go to a correction facility for short-term rehab services. We will need approval from her insurance company for this. I had the wound care nurse look at the patient's right knee which has a skin tear on it today, Mepilex was ordered. Objective Data Objective Data Vital Signs: Vital Signs Temp Pulse Resp BP Pulse Ox O2 Del Method 98.5 F 83 16 131/68 H 94 Room Air 09/24/22 09:33 09/24/22 09:33 09/24/22 09:33 09/24/22 09:33 09/24/22 09:33 09/24/22 09:33 Oxygen Delivery Method Room Air Weight: 114.8 kg Body Mass Index (BMI) 40.8 Intake & Output: Intake and Output for Last 24 Hours 09/22/22 09/23/22 09/24/22 23:59 23:59 23:59 Intake Total 1000 / 1000 650 / 650 60 / 60 Output Total 750 / 750 400 / 400 Balance 1000 / 1000 -100 / -100 -340 / -340 Lab / Micro Data Result Diagrams: 09/22/22 14:15 09/23/22 05:25 Physical Exam Narrative alert, oriented x3, no apparent distress and healthy appearing General Appearance: cooperative, well kempt and well developed Orientation / Consciousness: awake, oriented to person, oriented to place and oriented to time HEENT normocephalic, head/scalp atraumatic and moist oral mucous membranes Eyes PERRL, EOMs intact bilaterally and conjunctivae normal Neck supple, no JVD, thyroid normal and no carotid bruits General: trachea midline Resp normal respiratory effort, no retractions, no use of accessory muscles and clear to auscultation bilaterally Auscultation: Negative for rales, rhonchi or wheezes Cardio regular rate, regular rhythm, S1 normal heart sound, S2 normal heart sound, no murmurs, no rub and no gallops GI normal to inspection, nondistended, normoactive bowel sounds, soft to palpation, non-tender and non-distended GI Narrative: Patient is morbidly obese Extremity no clubbing, cyanosis or edema Skin Patient has a skin tear over her right knee which is approximately 3 cm x 3 cm Neuro oriented x3, CN's II-XII intact bilaterally, no focal motor deficits and no sensory deficits noted Neuro Narrative: Patient was not ambulated Sensorium / Orientation: awake and alert Speech: speech normal Psych affect normal Assessment & Plan Assessment/Plan (1) Inability to walk: (2) Contusion of hip, left: (3) Contusion of knee, left: PLAN: Plan 1. Mechanical fall with resultant contusions on a backdrop of debility-patient has agreed to go to a correction facility for short-term rehab services, we will await approval from her insurance carrier. #2 morbid obesity-complicates care, medical course, recovery, and prognosis. #3 elevated CPK-secondary to contusion, patient is not in rhabdomyolysis Total clinical time spent by myself addressing the patient's medical issues, reviewing all her data, and collaborating with the patient's care team: 35 minutes Charges/Coding Visit Charges Inpatient E&M: [id number] Subs Hosp L2
[2022-09-24 15:06] VITALS: BP 140/61; PULSE 80; RESP 18; TEMP 36.8; O2SAT 98
[2022-09-24] MEDS: Acetaminophen 325 MG Tablet 650 MG PO (15:13)
[2022-09-24 21:41] VITALS: BP 141/69; PULSE 78; RESP 16; TEMP 37; O2SAT 94
[2022-09-25 03:32] VITALS: BP 157/70; PULSE 73; RESP 16; TEMP 37; O2SAT 96
[2022-09-25 08:12] VITALS: BP 140/62; PULSE 78; RESP 18; TEMP 37; O2SAT 97
[2022-09-25] MEDS: Enoxaparin 40 MG/0.4 ML Syringe SC (09:13)
[2022-09-25] MEDS: Nystatin Powder 15gm Bottle 1 APPLIC TOPICAL (09:14)
[2022-09-25] MEDS: Famotidine 20 MG Tablet PO (09:15)
[2022-09-25 09:20] VITALS: RESP 18; O2SAT 93
[2022-09-25 09:36] LABS: Absolute Neutrophil Count 4.1 X10^3/uL (2.0-7.7); Basophil# 0.03 X10^3/uL; Basophil% 0.5 % (0-1); Eosinophil# 0.27 X10^3/uL; Eosinophils% 4.9 % (0-5); Hematocrit 40.7 % (37-47); Hemoglobin 12.8 g/dL (12.0-15.0); Lymphocyte % 14.5 % (19-41); Mean Corp Hgb Conc 31.4 g/dL (32-36); Mean Corpuscular Hgb 26.6 pg (27.0-32.0); Mean Corpuscular Volume 84.6 fL (81-99); Mean Platelet Vol. 11.2 fl (6.2-12.0); Monocyte# 0.32 X10^3/uL; Monocyte% 5.8 % (0-10); NRBC Flagged by Analyzer 0 % (0-5); Neutrophil # 4.07 X10^3/uL (2.7-7.7); Neutrophil % 74.1 % (47-70); Platelet Count 200 K/mm3 (150-450); RBC Distribution Width CV 16.6 % (11.6-14.6); RBC Distribution Width SD 51.3 fl (35.1-43.9); Red Blood Count 4.81 M/mm3 (4.2-5.4); White Blood Count 5.5 K/mm3 (4.4-11.0)
--- NOTE | 2022-09-25 10:30 | PCM.PN.HOSP ---
Subjective Subjective Doing well, no issues overnight Objective Data Objective Data Vital Signs: Vital Signs Temp Pulse Resp BP Pulse Ox O2 Del Method 98.6 F 78 18 140/62 H 93 Room Air 09/25/22 08:12 09/25/22 08:12 09/25/22 09:20 09/25/22 08:12 09/25/22 09:20 09/25/22 09:20 Oxygen Delivery Method Room Air Weight: 253 lb 1.451 oz Body Mass Index (BMI) 40.8 Intake & Output: Intake and Output for Last 24 Hours 09/24/22 09/25/22 09/26/22 03:59 03:59 03:59 Intake Total 550 / 550 1170 / 1170 200 / 200 Output Total 750 / 750 700 / 700 300 / 300 Balance -200 / -200 470 / 470 -100 / -100 Lab / Micro Data Result Diagrams: 09/25/22 09:05 09/23/22 05:25 Labs: Laboratory Results - last 24 hr 09/25/22 09:05: WBC 5.5, RBC 4.81, Hgb 12.8, Hct 40.7, MCV 84.6, MCH 26.6 L, MCHC 31.4 L, RDW Std Deviation 51.3 H, RDW Coeff of Vitaliy 16.6 H, Plt Count 200, MPV 11.2, Immature Gran % (Auto) 0.200, Neut % (Auto) 74.1 H, Lymph % (Auto) 14.5 L, [place] % (Auto) 5.8, Eos % (Auto) 4.9, Baso % (Auto) 0.5, Absolute Neuts (auto) 4.1, Absolute Lymphs (auto) 0.80 L, Nucleated RBC % 0 Physical Exam Narrative General: Alert, Oriented x3, Cooperative, No apparent distress HEENT: Atraumatic, PERRLA, EOMI, Normocephalic Oral: Moist Mucosa Neck: Supple, No JVD Lungs: Diminished, Normal air movement, No rhonchi, No wheeze, No rales Cardiovascular: Regular rate, Regular Rhythm, Normal S1, Normal S2, No murmurs Abdomen: Soft, Non Tender, Non-Distended, No Hepato-splenomegaly Extremities: No edema, Capillary Refill Less than 3 Seconds Skin: Skin tear on her right knee Musculoskeletal: No Tenderness to Palpation of Joints or Extremities Neurological: Cranial nerves II-XII grossly intact, Motor Exam 5/5 strength throughout, Sensory exam intact to light touch and pain Psych/Mental Status: Normal Affect, Appropriate Assessment & Plan Assessment/Plan (1) Inability to walk: (2) Contusion of hip, left: (3) Contusion of knee, left: PLAN: Plan 1. Mechanical fall/elevated CPK ? No fractures evident on imaging ? She does have a right knee skin tear ? She was evaluated by PT/OT recommending SNF placement ? No clinically evident rhabdo DVT: Lovenox Charges/Coding Visit Charges Inpatient E&M: 94299 Subs Hosp L2
[2022-09-25 11:08] VITALS: O2SAT 96
--- NOTE | 2022-09-25 12:18 | CASEMGMT ---
Addendum entered by Destiney Ibarra 09/25/22 14:18: YOVANI faxed all discharge orders to TCU.? YOVANI made copies of discharge orders and placed on pt chart. Sent original orders in envelope with pt upon discharge.? Disposition: TCU, skilled, convalescent, level of care?? SHERIF Rodríguez? ? Original Note: Social work Precert has been obtained. MD Delgado notified via backline. plans to d/c pt today. YOVANI notified RN, Kilo, that pt will need covid swab. YOVANI updated pt on approval. Pt voiced understanding. Declined for this YOVANI to call family/friends to update on d/c plan and stated would do this for self. SHERIF Rodríguez
--- NOTE | 2022-09-25 12:57 | TREXTCAR_ITS ---
Diet Diet Order/Speech Therapy: 09/25/22 07:20 Diet: Cardiac: Calorie-Controlled Is pt able to select menu?: Yes How many daily calories?: 1800 calorie Routine Orders/Code Status Routine Lab Work: CBC and BMP Code Status: Full Code Wound(s) right knee: Wound Type: Abrasion Dressing Change: Adaptic Therapies Physical Therapy: Eval and Treat Occupational Therapy: Eval and Treat Problem/Diagnosis (1) Inability to walk: Status: Acute Code(s): R26.2 - Difficulty in walking, not elsewhere classified (2) Contusion of hip, left: Status: Acute Code(s): S70.02XA - Contusion of left hip, initial encounter (3) Contusion of knee, left: Status: Acute Code(s): S80.02XA - Contusion of left knee, initial encounter Plan 1. Mechanical fall/elevated CPK ? No fractures evident on imaging ? She does have a right knee skin tear ? She was evaluated by PT/OT recommending SNF placement ? No clinically evident rhabdo DVT: Lovenox Allergies/Procedures Done in Hospital Allergies Sulfa (Sulfonamide Antibiotics) Allergy (Verified 09/22/22 13:49) Rash Procedures: None Type of Care/Length of Stay Estimated LOS: Convalescent Care Less Than 30 days Type of Care Needed: Skilled Rehab Potential: Good Prognosis: Good Additional Orders/Day of Discharge Day of Discharge: 09/25/22 Discharge Plan Admission Admit Date/Time: 09/22/22 16:22 Attending Provider: Eliot Delgado Primary Care Provider: Care Physician,No Primary Consulting Providers: Fbaián Franks Discharge Orders/Prescriptions Prescriptions: No Action NK Referrals / Follow Up: Care Physician,No Primary [Primary Care Provider] - Disposition Disposition (needs filled in before D/C Order can be placed): Correction Facility
--- NOTE | 2022-09-25 12:59 | PCM.DC.SUM ---
Providers Date of Admission: 09/22/22 Primary Care Physician: No Primary Care Phys Reason For Visit: DEBILITY Diagnosis Discharge Diagnosis (1) Inability to walk: Status: Acute Code(s): R26.2 - Difficulty in walking, not elsewhere classified (2) Contusion of hip, left: Status: Acute Code(s): S70.02XA - Contusion of left hip, initial encounter (3) Contusion of knee, left: Status: Acute Code(s): S80.02XA - Contusion of left knee, initial encounter Medications at Discharge Home Medications NK 09/22/22 Hospital Course Operations None Procedures None Summary of Care Provided Minutes Spent on Discharge: 35 Hospital Course: Per HPI: MORRIS MUNOZ, is a 77 F who presents to the emergency room at [facility] after being brought in by squad, she was found in her bedroom laying up against her door, patient states she does not remember how she fell, she is a poor informant.? The squad had to go through her bedroom window to allow her to be brought out of her room.? Patient states that she does not ambulate far, she uses a walker, she does not have a family physician-in the medical record here it appears that she had an appointment in May with the PCP but did not keep that appointment. Imaging studies done in the emergency room showed severe arthritis of the left hip, there is no obvious fracture noted.? Patient takes no medications at home.? Lab work was remarkable for a white blood cell count at 13.5, patient's chemistry profile was remarkable for BUN of 20.? CPK was elevated at 335. Patient will be placed into observation status for generalized debility, more than likely she will have to be placed in a skilled care facility for rehab services. Hospital Course: 1. Mechanical fall due to debility with a right knee skin tear and hip contusion? 77-year-old female presented from home with increasing weakness and a mechanical fall. Imaging did not show any fracture and to be certain that a CT scan of her lower extremity was obtained which was also negative for fracture. She worked with physical therapy who felt that she would benefit from [facility]. She did also have a slightly elevated CPK to 335 but she does not demonstrate the clinical picture of rhabdomyolysis. I discussed with her the plan for discharge today she expressed understanding of the risk benefits of going to the long term and would like to go today. Weight / BMI Weight Weight: 253 lb 1.451 oz Body Mass Index (BMI) 40.8 ABG / Lab / Microbiology Data Result Diagrams: 09/25/22 09:05 09/23/22 05:25 Laboratory: Laboratory Results - last 24 hr 09/25/22 09:05: WBC 5.5, RBC 4.81, Hgb 12.8, Hct 40.7, MCV 84.6, MCH 26.6 L, MCHC 31.4 L, RDW Std Deviation 51.3 H, RDW Coeff of Vitaliy 16.6 H, Plt Count 200, MPV 11.2, Immature Gran % (Auto) 0.200, Neut % (Auto) 74.1 H, Lymph % (Auto) 14.5 L, [place] % (Auto) 5.8, Eos % (Auto) 4.9, Baso % (Auto) 0.5, Absolute Neuts (auto) 4.1, Absolute Lymphs (auto) 0.80 L, Nucleated RBC % 0 Meaningful Use Info Meaningful Use Diagnoses (Choose all that apply): None applicable Discharge Plan Admission Admit Date/Time: 09/22/22 16:22 Attending Provider: Eliot Delgado Primary Care Provider: Care Physician,No Primary Consulting Providers: Fabián Franks Discharge Orders/Prescriptions Prescriptions: No Action NK Referrals / Follow Up: Care Physician,No Primary [Primary Care Provider] - Disposition Disposition (needs filled in before D/C Order can be placed): [facility] Facility Charges/Coding Visit Charges Inpatient E&M: 56009 Disch Hosp >30min
[2022-09-25 13:30] VITALS: BP 146/68; PULSE 82; RESP 16; TEMP 36.6; O2SAT 93
[2022-09-25 14:50] VITALS: BP 146/68; PULSE 82; RESP 16; TEMP 36.6; O2SAT 93
== END 2022-09-25 15:40 | disposition skilled nursing facility (03) ==
LOC: ED 16:19 → MS3 16:34
PROVIDERS: Admitting Provider Internal Medicine; Emergency Provider Emergency Medicine; Visit Provider Family Medicine
DX: S70.02XA Contusion of left hip, initial encounter (principal); E66.01 Morbid (severe) obesity due to excess calories; Z68.41 Body mass index [BMI] 40.0-44.9, adult; R53.81 Other malaise; R26.2 Difficulty in walking, not elsewhere classified; W19.XXXA Unspecified fall, initial encounter; I10 Essential (primary) hypertension; S80.02XA Contusion of left knee, initial encounter; R53.1 Weakness; S81.011A Laceration without foreign body, right knee, initial encounter
CPT/HCPCS: 36415; 70450; 71045; 72170; 73552; 73700; 80048; 80053; 82550; 84484; 85025; 87426; 93005; 96360; 96361; 96372; 97110; 97162; 97166; 97530; 97535; 99221; 99285; J7030; A4216; G0378

== ENCOUNTER 2022-09-25 15:43 | Inpatient (IN) | payer MEDICARE, MEDICAID, SELFPAY ==
[2022-09-25 16:01] VITALS: PULSE 84; RESP 22; O2SAT 95; BMI 43.6
[2022-09-25 16:02] VITALS: BP 138/55; PULSE 84; RESP 20; TEMP 36.9; O2SAT 95
[2022-09-25 16:04] VITALS: BMI 43.6
--- NOTE | 2022-09-25 18:56 | HP.PCM_ITS ---
HPI - General General Date of Admission: 09/25/22 Date of Service: 09/25/22 Chief Complaint: Here for rehabilitation. HPI Narrative 09/22/2022 MORRIS MUNOZ, is a 77 Female who presents to [facility] Emergency Department with fall, left hip injury. 09/22/2022 EKG normal sinus rhythm, left axis deviation, right bundle branch block. Fell, could not get up, found on floor, spent night on floor. WBC 13.5, Hemoglobin 14.8, Platelets 247, BMP okay, CPK 335. CT head okay, X-ray left hip negative fracture, dislocation but showed severe arthritis. 09/22/2022 Admit to Hospital. PT/OT for SNF. 09/23/2022 Prednisone taper for osteoarthritis of left hip. 09/24/2022 Mepilex to right knee skin tear. No rhabdomyolysis. 09/25/2022 Admit to TCU with debility, here for rehabilitation, strengthening, prior to discharge home alone. [facility] Medical History Anxiety Hypertension Home Medications NK 09/22/22 [History Last Taken Unknown] Allergy/AdvReac Type Severity Reaction Status Date / Time Sulfa (Sulfonamide Allergy Rash Verified 09/22/22 13:49 Antibiotics) Surgical History History of total left hip replacement Social History (Updated 09/25/22 @ 18:[address] Ad Mckeon MD) household members: none and other details: Significant other sleeps on couch some days. Smoking Status: Never smoker alcohol intake: never substance use type: does not use ROS Constitutional Constitutional: Denies chills, fever(s) or weight gain ENT HEENT: Denies headache(s), nasal congestion or nasal discharge Cardiovascular Cardiovascular: Denies chest pain or palpitations Respiratory/Chest Respiratory/Chest: Denies cough, excessive phlegm production or shortness of breath with exertion Gastrointestinal Gastrointestinal: Denies abdominal pain, nausea or vomiting Genitourinary Genitourinary: Denies dysuria Musculoskeletal Musculoskeletal: Denies joint pain or joint swelling Integumentary Integumentary: Denies rash or wounds Neurologic Neurologic: Denies focal weakness, numbness or tingling Psychiatric Psychiatric: Denies anxiety, auditory hallucinations, depression, homicidal ideation or suicidal ideation Vital Signs Vital Signs Vital Signs: 09/25/22 16:02 09/25/22 16:01 Temperature 98.5 F Temperature Source Oral Pulse Rate 84 84 Pulse Rhythm Regular Pulse Strength Normal (2+) Respiratory Rate 20 H 22 H Respiratory Effort Normal Respiratory Depth Normal Respiratory Pattern Normal Blood Pressure 138/55 H Blood Pressure Mean 82 Blood Pressure Source Monitor Pulse Ox 95 95 Oxygen Delivery Method Room Air Room Air Weight Weight: 123.1 kg Body Mass Index (BMI) 43.6 Physical Exam Const alert General Appearance: cooperative HEENT normocephalic Eyes PERRL and EOMs intact bilaterally Neck supple, no JVD and no carotid bruits Resp normal respiratory effort, normal air movement and clear to auscultation bilaterally Cardio regular rate and regular rhythm GI normal to inspection, nondistended, normoactive bowel sounds, non-tender and non-distended Extremity normal capillary refill General Extremity: Negative for edema Skin Skin Narrative: Rash left antecube. General Skin Exam: no breakdown Psych affect normal Appearance: appropriate Assessment & Plan Assessment/Plan (1) Debility: (2) Fall: (3) Contusion of hip, left: (4) Contusion of knee, left: (5) Osteoarthritis of left hip: (6) BMI 40.0-44.9, adult: PLAN: Plan 77 year old female with below past medical history hospitalized for fall, left hip contusion, admitted to TCU with debility, here for rehabilitation, strengt hening, prior to discharge home alone. * Debility - PT/OT. * Pain - Tylenol 1000mg q6h prn pain (1-10). * Bowel - senna/colace 1 tablet bid, MOM 30ml po x 1 prn. * Adult immunization - Administer pneumonia vaccine, covid19 vaccine, flu vaccine as appropriate. * DVT prophylaxis - HAS-BLED 1 intermediate risk of bleeding, [place] 7 High risk of blood clots, overall intermediate risk, Rx Xarelto 10mg daily x 10 days. * Toe irritation - Lac-Hydrin topical bid. * Left antecube rash - HC 2.5% topical tid prn. * Skin irritation - Calmoseptine topical bid. * Thrush - Nystatin 500,000 4x/day x 10 days. * Tinea Corporis - Nystatin powder topical bid. * BMI 43.6 - Weight loss encouraged.
[2022-09-25] MEDS: Nystatin Powder 15gm Bottle 1 APPLIC TOPICAL (21:12)
[2022-09-25] MEDS: Menthol/Lanolin/Calamine/Znox 113 GM Tube 1 APPLIC TOPICAL (21:12)
[2022-09-25] MEDS: Ammonium Lactate 225 gm Bottle 1 APPLIC TOPICAL (21:12)
[2022-09-25] MEDS: NYSTATIN 500,000 UNIT/5 ML UDC 500000 UNIT PO (21:18)
[2022-09-25] MEDS: Acetaminophen 500 MG Tablet 1000 MG PO (21:20)
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
[2022-09-26 05:34] LABS: Absolute Lymphocyte Count 1.12 X10^3/uL (0.83-4.51); Absolute Neutrophil Count 3.1 X10^3/uL (2.0-7.7); Basophil# 0.03 X10^3/uL; Basophil% 0.6 % (0-1); Eosinophil# 0.25 X10^3/uL; Eosinophils% 5.1 % (0-5); Hematocrit 40.9 % (37-47); Hemoglobin 12.8 g/dL (12.0-15.0); Lymphocyte # 1.12 X10^3/ul (0.83-4.51); Lymphocyte % 22.6 % (19-41); Mean Corp Hgb Conc 31.3 g/dL (32-36); Mean Corpuscular Hgb 26.2 pg (27.0-32.0); Mean Corpuscular Volume 83.8 fL (81-99); Mean Platelet Vol. 11.2 fl (6.2-12.0); Monocyte# 0.41 X10^3/uL; Monocyte% 8.3 % (0-10); NRBC Flagged by Analyzer 0 % (0-5); Neutrophil # 3.13 X10^3/uL (2.7-7.7); Neutrophil % 63.2 % (47-70); Platelet Count 210 K/mm3 (150-450); RBC Distribution Width CV 16.7 % (11.6-14.6); Red Blood Count 4.88 M/mm3 (4.2-5.4)
[2022-09-26 06:14] LABS: Anion Gap 6 (5-15); BUN 19 mg/dL (7-18); BUN/Creat Ratio 28.3 RATIO (10-20); Calcium,Total 8.9 mg/dL (8.5-10.1); Chloride 112 mmol/L (98-107); Creatinine, Serum 0.67 mg/dL (0.55-1.02); EST Glomerular Filtration Rate 90 mL/min (>60); Est Glom Filt Rate - Afr Amer 109 mL/min (>60); Glucose 108 mg/dL (74-106); Sodium Level 144 mmol/L (136-145)
[2022-09-26] MEDS: Nystatin Powder 15gm Bottle 1 APPLIC TOPICAL ×2 (06:40→17:45)
[2022-09-26] MEDS: Senna/Docusate Sodium 1 Tablet PO (06:40)
[2022-09-26] MEDS: Menthol/Lanolin/Calamine/Znox 113 GM Tube 1 APPLIC TOPICAL ×2 (06:40→19:56)
[2022-09-26] MEDS: Ammonium Lactate 225 gm Bottle 1 APPLIC TOPICAL ×2 (06:40→18:31)
[2022-09-26] MEDS: NYSTATIN 500,000 UNIT/5 ML UDC 500000 UNIT PO ×4 (06:40→19:57)
--- NOTE | 2022-09-26 09:24 | NURSING ---
PT REQUESTING FOR A COVID BOOSTER SHOT. REPORTED TO MARIBEL WHITFIELD.
[2022-09-26] MEDS: Tuberculin,Purif.prot.deriv. 50 TU/ML Vial 0.1 ML ID (09:30)
[2022-09-26] MEDS: FLU VACC QS2022-23(6MOS UP)/PF 60 MCG/0.5 ML SYRINGE IM (09:32)
--- NOTE | 2022-09-26 09:37 | NURSING ---
FLU SHOT GIVEN IN RIGHT DELT. PT TOLERATED WELL.
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
--- NOTE | 2022-09-26 10:38 | NURSING ---
Addendum entered by Jorge Reyes 09/26/22 14:24: SSE GIVEN. SMALL HARD STOOL IN SMALL AMOUNT CAME OUT. PT COULDN'T HOLD SSE IN VERY LONG. PT TOLERATED WELL. WILL CONTINUE TO MONITOR. Original Note: PT STATED SHE WANTS THE SSE AFTER LUNCH.
[2022-09-26 10:45] VITALS: PULSE 77; RESP 18; O2SAT 95
--- NOTE | 2022-09-26 13:21 | NURSING ---
Stock Selector Note; Activity Asset: Gary Collins is independent in her choice of daily activities. She enjoys reading anything about [place]. She watches TV, talks and visits w/friends and family and will work on word puzzles.
--- NOTE | 2022-09-26 13:48 | CASEMGMT ---
Social Work Met with patient to complete initial assessment. Introduced self and role. Verified contacts. Discussed code status and MOLST form. Pt confirmed full code. MOLST form placed in Dr. mccollum. Educated to [facility] insurance with NRD 09/27 and continued stay is not guaranteed with each review. Pt's goal is to return home alone with SO support. However, SO cannot physically support and pt has no friends or family. Pt was having visual hallucinations during visit, but remained pleasant. SW did consult BUSINESS MACHINE OPERATOR to assist with ensuring pt can complete meds and finances upon home. SW to continue to follow for DC planning. Michelle Rutledge, CONCRETE BOOM PUMP OPERATOR DISTRIBUTOR OF DIRECTORIES
[2022-09-26 13:52] VITALS: BP 110/61; PULSE 84; RESP 16; TEMP 36.5; O2SAT 92
[2022-09-26] MEDS: Acetaminophen 500 MG Tablet 1000 MG PO (16:27)
[2022-09-26] MEDS: Rivaroxaban 10 MG Tablet PO (17:44)
[2022-09-26] MEDS: Senna/Docusate Sodium 1 Tablet 2 TABLET PO (17:45)
[2022-09-26 18:49] LABS: Mucous, Urine 0 SEEN /hpf (<or=2+); Red Blood Cells-Urine 0 SEEN /hpf (0-5); Squamous Epithelial Cells - UA 0 SEEN /hpf (5-10)
[2022-09-26 18:55] LABS: Color, Urine Yellow (Yellow); Glucose, Dipstick Normal (Normal); Ketone-Dipstick Negative (Negative); Leukocyte Esterase-Dipstick 25 /ul (Negative); Nitrite-Dipstick Positive (Negative); Occult Blood-Urine Negative /ul (Negative); Protein-Dipstick Negative (Negative); Urine Bilirubin Dipstick Negative (Negative); Urine Clarity Clear (Clear); Urine Urobilinogen Normal (Normal)
[2022-09-26 19:32] LABS: Bacteria 2+ /hpf (None Seen); White Blood Cells 0-5 SEEN /hpf (0-5)
[2022-09-26] MEDS: Electrolyte Solution/Peg's 4000 ML 1000 ML PO (19:54)
[2022-09-27] MEDS: Ammonium Lactate 225 gm Bottle 1 APPLIC TOPICAL ×2 (05:10→17:24)
[2022-09-27] MEDS: NYSTATIN 500,000 UNIT/5 ML UDC 500000 UNIT PO ×4 (05:10→23:44)
[2022-09-27] MEDS: Senna/Docusate Sodium 1 Tablet 2 TABLET PO ×2 (05:10→17:24)
[2022-09-27] MEDS: Menthol/Lanolin/Calamine/Znox 113 GM Tube 1 APPLIC TOPICAL ×2 (05:10→23:44)
[2022-09-27] MEDS: Nystatin Powder 15gm Bottle 1 APPLIC TOPICAL ×2 (05:10→17:25)
[2022-09-27] MEDS: Ciprofloxacin 250 MG Tablet PO ×2 (09:22→17:24)
--- NOTE | 2022-09-27 11:06 | PCM.PN.DRR ---
TCU RX Drug Regimen Review Subjective: 77 YOF admitted to TCU S/P hospitalization for a fall, leading to left hip injury. Admitted to TCU for rehabilitation and strengthening prior to discharge home where she resides alone. Objective: Allergies Sulfa (Sulfonamide Antibiotics) Allergy (Verified 09/22/22 13:49) Rash Current Medications Generic Name Dose Route Start Last Admin Trade Name Freq PRN Reason Stop Dose Admin Acetaminophen 1,000 mg 09/25/22 19:07 09/26/22 16:27 Acetaminophen 500 Mg Tablet PO 1,000 mg Q6H PRN PRN Administration Pain Score 1-10 Calamine/Phenol 1 applic 09/25/22 22:00 09/27/22 05:10 Menthol/Lanolin/Calamine/Znox 113 Gm Tube TOPICAL 1 applic 0600,2200 CHANTELLE Administration Protocol Ciprofloxacin HCl 250 mg 09/27/22 08:00 09/27/22 09:22 Ciprofloxacin 250 Mg Tablet PO 10/04/22 08:01 250 mg BID CHANTELLE Administration Hydrocortisone 1 applic 09/25/22 17:36 Hydrocortisone 2.5% Crm TOPICAL TID PRN PRN RASH/TOPICAL IRRITATION Protocol Lactic Acid 1 applic 09/25/22 18:00 09/27/22 05:10 Ammonium Lactate 225 Gm Bottle TOPICAL 1 applic BID CHANTELLE Administration Protocol Magnesium Hydroxide 30 ml 09/25/22 19:07 Magnesium Hydroxide 30 Ml Udc PO X1 PRN Constipation Nystatin 1 applic 09/25/22 18:00 09/27/22 05:10 Nystatin Powder 15gm Bottle TOPICAL 1 applic BID CHANTELLE Administration Protocol Nystatin 500,000 unit 09/25/22 22:00 09/27/22 05:10 Nystatin 500,000 Unit/5 Ml Udc PO 10/05/22 22:01 500,000 unit 4X/DAY CHANTELLE Administration Rivaroxaban 10 mg 09/26/22 17:00 09/26/22 17:44 Rivaroxaban 10 Mg Tablet PO 10/06/22 17:01 10 mg DINNER CHANTELLE Administration Senna/Docusate Sodium 2 tablet 09/26/22 18:00 09/27/22 05:10 Senna/Docusate Sodium 1 Tablet PO 2 tablet BID CHANTELLE Administration Sodium Chloride 10 - 40 ml 09/25/22 16:16 0.9% Saline Lock 10 Ml Syringe IV UD PRN SALINE FLUSH Tuberculin PPD 0.1 ml 10/03/22 10:00 Tuberculin,Purif.Prot.Deriv. 50 Tu/Ml Vial ID 10/03/22 10:01 X1 ONE Problem List (Last Reviewed 09/25/22 @ 18:[address] Ad Mckeon MD) BMI 40.0-44.9, adult (Acute) Osteoarthritis of left hip (Acute) Debility (Acute) Fall (Acute) Contusion of hip, left (Acute) Contusion of knee, left (Acute) Vital Signs Temp Pulse Resp BP Pulse Ox O2 Del Method 97.7 F L 84 16 110/61 92 Room Air 09/26/22 13:52 09/26/22 13:52 09/26/22 13:52 09/26/22 13:52 09/26/22 13:52 09/26/22 13:52 Oxygen Delivery Method Room Air Weight: 123.1 kg Body Mass Index (BMI) 43.6 Sodium 144 mmol/L (136-145) 09/26/22 05:07 Potassium 4.0 mmol/L (3.5-5.1) 09/26/22 05:07 Chloride 112 mmol/L (98-107) H 09/26/22 05:07 Carbon Dioxide 26.0 mmol/L (21.0-32.0) 09/26/22 05:07 Anion Gap 6 (5-15) 09/26/22 05:07 BUN 19 mg/dL (7-18) H 09/26/22 05:07 Creatinine 0.67 mg/dL (0.55-1.02) 09/26/22 05:07 Est GFR (MDRD) Af Amer 109 mL/min (>60) 09/26/22 05:07 Est GFR (MDRD) Non-Af 90 mL/min (>60) 09/26/22 05:07 BUN/Creatinine Ratio 28.3 RATIO (10-20) H 09/26/22 05:07 Glucose 108 mg/dL (74-106) H 09/26/22 05:07 Assessment/Plan: 1. Pain: Tylenol 1000mg PO Q6h PRN. Please continue to monitor for increased/decreased S/S pain, PRN medication usage. - To date, the patient has utilized 1 dose of Tylenol with pain ratings premedication a 6, and post-medication pain rated a zero. It appears pain is well controlled at this time, continue to monitor. 2. UTI: Ciprofloxacin 250mg PO BID thru 10/04/22. Please continue to monitor for diarrhea, resolution of infection, culture results. UCx is currently growing 80-100k colonies of a GNR, lactose field professional. There is no sensitivity data, but based on preliminary results, Cipro would cover whatever organism is growing. 3. Thrush: Nystatin 5mL PO 4x/day thru 10/05. Please continue to monitor for resolution of thrush. 4. DVT Prophylaxis: Xarelto 10mg PO Daily. Please continue to monitor H/H (stable from labs on 09/26), S/S bleeding/bruising with use. 5. Skin Integrity: Nystatin powder BID, Calmoseptine BID, Lac-hydrin topically BID, Hydrocortisone cream TID PRN. Please continue to monitor for skin irritation/redness, rash, ulcer formation. 6. Bowel: Senna/Docusate 2 tab PO BID, MOM 30ml PO x1 PRN. Please continue to monitor for increased/decreased constipation and/or diarrhea. - To date, the patient has produced 1 bowel movement. Bowel regimen appears effective at this time. Assessment/Plan for indications treated with psychotropic medications: The patient is not being managed on any psychotropic medications at time of review. Medical chart and medication regimen reviewed. The following medication irregularities or issues were identified: 1. Per nursing notes, the patient has been having hallucinations. Not on any psychotropic medications at this time. Please continue to monitor closely. It does not appear patient is agitated at this time. Date of Note:: 09/27/22
--- NOTE | 2022-09-27 13:17 | NS ---
Nutrition Services Dept received phone call from nurse's aid regarding this Resident having questions about her diet order and menu choices. This RD spoke with Resident at bedside and she did not express any concerns about her diet order or menu choices. She was aware of her diet order and was able to demonstrate choosing heart-healthy menu selections with paper menu. Resident is pleased with the food, except she stated that the fish she received for lunch one day was dry and tough. Resident was eating cheese pizza during this visit. She did express interest in GoLo weight loss supplement that she saw on TV. This RD did not have information or insight, but told her to ask her doctor about it. No additional nutrition intervention planned at this time.
--- NOTE | 2022-09-27 13:23 | NURSING ---
THIS NURSE AND RN IN ROOM TO GET PT OFF BSC AND PT STATED BILL WAS JUST HERE DONT KNOW WERE HE WENT. WE STATED NO ONE HAS BEEN IN ROOM BUT US. PT STATED HE THE ONE WITH BOTH AMPUTATED LEGS. AGAIN US NURSES STATED TO PT THAT NO ONE HAS BEEN IN ROOM BUT US. PT STATED OH OK. THIS NURSE LATER WENT BY PT ROOM AND SEEN PT HAVING A FULL BLOWN CONVERSATION WITH NO ONE IN ROOM. TV WAS OFF. RN AWARE
[2022-09-27 14:09] VITALS: BP 131/64; PULSE 86; RESP 18; TEMP 36.1; O2SAT 99
[2022-09-27] MEDS: Rivaroxaban 10 MG Tablet PO (17:24)
[2022-09-27] MEDS: Acetaminophen 500 MG Tablet 1000 MG PO (17:27)
[2022-09-27 17:54] VITALS: PULSE 85; RESP 18; O2SAT 96
[2022-09-28] MEDS: Menthol/Lanolin/Calamine/Znox 113 GM Tube 1 APPLIC TOPICAL ×2 (05:03→20:36)
[2022-09-28] MEDS: Ciprofloxacin 250 MG Tablet PO ×2 (05:03→17:23)
[2022-09-28] MEDS: Ammonium Lactate 225 gm Bottle 1 APPLIC TOPICAL ×2 (05:03→17:25)
[2022-09-28] MEDS: Nystatin Powder 15gm Bottle 1 APPLIC TOPICAL ×2 (05:04→17:24)
[2022-09-28] MEDS: NYSTATIN 500,000 UNIT/5 ML UDC 500000 UNIT PO ×4 (05:04→20:33)
[2022-09-28] MEDS: Acetaminophen 500 MG Tablet 1000 MG PO ×2 (09:04→20:33)
[2022-09-28 10:00] VITALS: PULSE 79; RESP 18; O2SAT 95
[2022-09-28 15:05] VITALS: BP 130/64; PULSE 86; RESP 14; TEMP 36.6; O2SAT 95
[2022-09-28] MEDS: Rivaroxaban 10 MG Tablet PO (17:24)
[2022-09-28] MEDS: Senna/Docusate Sodium 1 Tablet 2 TABLET PO (17:25)
[2022-09-29] MEDS: NYSTATIN 500,000 UNIT/5 ML UDC 500000 UNIT PO ×4 (05:18→20:22)
[2022-09-29] MEDS: Senna/Docusate Sodium 1 Tablet 2 TABLET PO ×2 (05:18→18:08)
[2022-09-29] MEDS: Ciprofloxacin 250 MG Tablet PO ×2 (05:18→18:07)
[2022-09-29] MEDS: Ammonium Lactate 225 gm Bottle 1 APPLIC TOPICAL ×2 (05:20→18:07)
[2022-09-29] MEDS: Menthol/Lanolin/Calamine/Znox 113 GM Tube 1 APPLIC TOPICAL ×2 (05:21→20:26)
[2022-09-29] MEDS: Nystatin Powder 15gm Bottle 1 APPLIC TOPICAL ×2 (05:27→18:09)
[2022-09-29] MEDS: Acetaminophen 500 MG Tablet 1000 MG PO ×2 (13:28→20:22)
[2022-09-29 14:42] VITALS: BP 127/79; PULSE 77; RESP 16; TEMP 36.4; O2SAT 95
[2022-09-29] MEDS: Rivaroxaban 10 MG Tablet PO (18:06)
[2022-09-29 19:45] VITALS: O2SAT 96
[2022-09-30] MEDS: Senna/Docusate Sodium 1 Tablet 2 TABLET PO ×2 (04:43→18:07)
[2022-09-30] MEDS: Ciprofloxacin 250 MG Tablet PO ×2 (04:43→18:06)
[2022-09-30] MEDS: NYSTATIN 500,000 UNIT/5 ML UDC 500000 UNIT PO ×4 (04:43→20:39)
[2022-09-30] MEDS: Menthol/Lanolin/Calamine/Znox 113 GM Tube 1 APPLIC TOPICAL ×2 (04:45→20:40)
[2022-09-30] MEDS: Ammonium Lactate 225 gm Bottle 1 APPLIC TOPICAL ×2 (04:45→18:08)
[2022-09-30] MEDS: Nystatin Powder 15gm Bottle 1 APPLIC TOPICAL ×2 (04:45→18:07)
[2022-09-30] MEDS: Acetaminophen 500 MG Tablet 1000 MG PO ×2 (08:41→20:39)
[2022-09-30 10:00] VITALS: PULSE 75; RESP 18; O2SAT 97
[2022-09-30 14:33] VITALS: BP 160/54; PULSE 65; RESP 16; TEMP 36.4; O2SAT 95
[2022-09-30] MEDS: Rivaroxaban 10 MG Tablet PO (18:06)
[2022-10-01] MEDS: Senna/Docusate Sodium 1 Tablet 2 TABLET PO ×2 (05:06→17:24)
[2022-10-01] MEDS: Ciprofloxacin 250 MG Tablet PO ×2 (05:06→17:23)
[2022-10-01] MEDS: NYSTATIN 500,000 UNIT/5 ML UDC 500000 UNIT PO ×4 (05:06→19:26)
[2022-10-01] MEDS: Ammonium Lactate 225 gm Bottle 1 APPLIC TOPICAL ×2 (05:07→17:26)
[2022-10-01] MEDS: Menthol/Lanolin/Calamine/Znox 113 GM Tube 1 APPLIC TOPICAL ×2 (05:07→19:35)
[2022-10-01] MEDS: Nystatin Powder 15gm Bottle 1 APPLIC TOPICAL ×2 (05:07→17:25)
[2022-10-01] MEDS: Acetaminophen 500 MG Tablet 1000 MG PO ×2 (10:26→19:25)
[2022-10-01 14:37] VITALS: BP 123/58; PULSE 85; RESP 14; TEMP 36.8; O2SAT 92
[2022-10-01] MEDS: Rivaroxaban 10 MG Tablet PO (17:23)
[2022-10-01 19:36] VITALS: O2SAT 95
[2022-10-02] MEDS: Senna/Docusate Sodium 1 Tablet 2 TABLET PO ×2 (04:57→17:44)
[2022-10-02] MEDS: Ciprofloxacin 250 MG Tablet PO ×2 (04:57→17:43)
[2022-10-02] MEDS: NYSTATIN 500,000 UNIT/5 ML UDC 500000 UNIT PO ×4 (04:58→21:27)
[2022-10-02] MEDS: Nystatin Powder 15gm Bottle 1 APPLIC TOPICAL ×2 (04:59→17:44)
[2022-10-02] MEDS: Menthol/Lanolin/Calamine/Znox 113 GM Tube 1 APPLIC TOPICAL ×2 (04:59→21:28)
[2022-10-02 09:29] VITALS: BMI 41.6
[2022-10-02 10:00] VITALS: PULSE 87; RESP 20; O2SAT 96
--- NOTE | 2022-10-02 11:10 | CASEMGMT ---
Social Work BIMS () and PHQ-9 (08/20) completed for MDS assessment. Michelle Rutledge MSW CELL BUILDER
[2022-10-02] MEDS: Acetaminophen 500 MG Tablet 1000 MG PO (12:36)
[2022-10-02 13:47] VITALS: BP 123/66; PULSE 74; RESP 16; TEMP 36.5; O2SAT 95
--- NOTE | 2022-10-02 15:47 | NURSING ---
Moderna booster given in Lt deltoid. tolerated well.
[2022-10-02] MEDS: Rivaroxaban 10 MG Tablet PO (17:43)
[2022-10-02] MEDS: Ammonium Lactate 225 gm Bottle 1 APPLIC TOPICAL (17:45)
[2022-10-02] MEDS: Arthritis Pain Compound 60 CLICK TUBE TOPICAL (18:13)
[2022-10-03] MEDS: Arthritis Pain Compound 60 CLICK TUBE TOPICAL ×2 (05:29→17:24)
[2022-10-03] MEDS: Senna/Docusate Sodium 1 Tablet 2 TABLET PO ×2 (05:30→17:23)
[2022-10-03] MEDS: Nystatin Powder 15gm Bottle 1 APPLIC TOPICAL ×3 (05:30→20:18)
[2022-10-03] MEDS: Ciprofloxacin 250 MG Tablet PO ×2 (05:30→17:22)
[2022-10-03] MEDS: Menthol/Lanolin/Calamine/Znox 113 GM Tube 1 APPLIC TOPICAL ×2 (05:32→20:18)
[2022-10-03] MEDS: NYSTATIN 500,000 UNIT/5 ML UDC 500000 UNIT PO ×4 (05:32→20:22)
[2022-10-03 05:33] LABS: Absolute Lymphocyte Count 1.12 X10^3/uL (0.83-4.51); Absolute Neutrophil Count 4.1 X10^3/uL (2.0-7.7); Basophil# 0.04 X10^3/uL; Basophil% 0.7 % (0-1); Eosinophil# 0.32 X10^3/uL; Eosinophils% 5.3 % (0-5); Hematocrit 40.1 % (37-47); Hemoglobin 12.2 g/dL (12.0-15.0); Lymphocyte # 1.12 X10^3/ul (0.83-4.51); Lymphocyte % 18.7 % (19-41); Mean Corp Hgb Conc 30.4 g/dL (32-36); Mean Corpuscular Volume 85.5 fL (81-99); Mean Platelet Vol. 10.7 fl (6.2-12.0); Monocyte# 0.43 X10^3/uL; Monocyte% 7.2 % (0-10); NRBC Flagged by Analyzer 0 % (0-5); Neutrophil # 4.06 X10^3/uL (2.7-7.7); Neutrophil % 67.8 % (47-70); Platelet Count 238 K/mm3 (150-450); RBC Distribution Width CV 16.7 % (11.6-14.6); RBC Distribution Width SD 51.4 fl (35.1-43.9); Red Blood Count 4.69 M/mm3 (4.2-5.4)
[2022-10-03 05:58] LABS: Anion Gap 4 (5-15); BUN 20 mg/dL (7-18); Calcium,Total 8.8 mg/dL (8.5-10.1); Chloride 111 mmol/L (98-107); Creatinine, Serum 0.54 mg/dL (0.55-1.02); EST Glomerular Filtration Rate 116 mL/min (>60); Est Glom Filt Rate - Afr Amer 140 mL/min (>60); Glucose 96 mg/dL (74-106); Potassium 3.7 mmol/L (3.5-5.1); Sodium Level 141 mmol/L (136-145)
[2022-10-03] MEDS: Acetaminophen 500 MG Tablet 1000 MG PO (10:05)
[2022-10-03] MEDS: Tuberculin,Purif.prot.deriv. 50 TU/ML Vial 0.1 ML ID (12:31)
[2022-10-03 13:41] VITALS: BP 111/60; PULSE 65; RESP 19; TEMP 37; O2SAT 96
--- NOTE | 2022-10-03 16:05 | CHAPLAIN ---
Type of Pastoral Visit _x__ Initial Visit ___ Follow-up Visit ___ On-call Visit ___ General Patient Visit ___ Spiritual Assessment ___ Family Conference ___ Bereavement ___ Rapid Response ___ Code Blue ___ Other (describe below) Pastoral Care Referral From _x__ Patient ___ Family ___ Nurse ___ Physician ___ Investigative Research Specialist ___ Selvage Machine Operator ___ Other (describe below) Sacrament/Intervention _x__ Active listening ___ Anointing ___ Mu-Ism ___ Bereavement ___ Communion _x__ Paulette exploration ___ ___ Life review _x__ Prayer ___ Reconciliation ___ Sacrament of Sick _x__ Supportive presence ___ Wedding ___ Other (describe below) Pastoral Comments patient is welcoming and very talkative; pt speaks through many different topics; pt does hesitate a few times trying to come up with memories or correct answers/details of things; pt talks about a fiance Mervin and a friend Bill; pt admits when she fell that she was confused about where the door was in her apartment; pt would like a Bible to read and that was given to her; prayer and presence welcomed; pt is pleasant throughout the visit
[2022-10-03] MEDS: Ammonium Lactate 225 gm Bottle 1 APPLIC TOPICAL (17:22)
[2022-10-03] MEDS: Rivaroxaban 10 MG Tablet PO (17:22)
[2022-10-03 20:20] VITALS: O2SAT 94
[2022-10-04] MEDS: NYSTATIN 500,000 UNIT/5 ML UDC 500000 UNIT PO ×4 (05:00→21:05)
[2022-10-04] MEDS: Arthritis Pain Compound 60 CLICK TUBE TOPICAL ×2 (05:00→18:03)
[2022-10-04] MEDS: Ciprofloxacin 250 MG Tablet PO (05:01)
[2022-10-04] MEDS: Ammonium Lactate 225 gm Bottle 1 APPLIC TOPICAL ×2 (05:04→18:04)
[2022-10-04] MEDS: Menthol/Lanolin/Calamine/Znox 113 GM Tube 1 APPLIC TOPICAL ×2 (05:09→21:06)
[2022-10-04] MEDS: Acetaminophen 500 MG Tablet 1000 MG PO ×2 (09:25→21:04)
--- NOTE | 2022-10-04 10:16 | CASEMGMT ---
Social Work SW contacted SO via phone to follow up from [facility] mtg yesterday. SW educated to [facility] insurance with NRD 10/05 and continued stay is not guaranteed. EDC 10/11. Pt needs significant assistance x1-2 assist and inquired about safety in the home, possible transferring to a SNF prior to home. SO states, it's just me to help her. So ask her. It's her decision. SW agreed and will speak with pt, but also wanted to ensure SO was updated as well. SO appreciative. SW to continue to follow. Michelle Rutledge, ABRASIVE BAND WINDER PAPER GLUING OPERATOR
[2022-10-04 14:18] VITALS: BP 122/53; PULSE 75; RESP 16; TEMP 36.3; O2SAT 96
[2022-10-04] MEDS: Rivaroxaban 10 MG Tablet PO (18:03)
[2022-10-04] MEDS: Nystatin Powder 15gm Bottle 1 APPLIC TOPICAL (18:06)
[2022-10-04 21:30] VITALS: O2SAT 96
[2022-10-05] MEDS: Senna/Docusate Sodium 1 Tablet 2 TABLET PO ×2 (05:24→18:08)
[2022-10-05] MEDS: NYSTATIN 500,000 UNIT/5 ML UDC 500000 UNIT PO ×4 (05:24→20:08)
[2022-10-05] MEDS: Arthritis Pain Compound 60 CLICK TUBE TOPICAL ×2 (05:25→18:07)
[2022-10-05] MEDS: Acetaminophen 500 MG Tablet 1000 MG PO ×2 (05:29→18:11)
[2022-10-05] MEDS: Nystatin Powder 15gm Bottle 1 APPLIC TOPICAL ×2 (05:30→18:08)
[2022-10-05] MEDS: Ammonium Lactate 225 gm Bottle 1 APPLIC TOPICAL ×2 (05:30→18:13)
[2022-10-05] MEDS: Menthol/Lanolin/Calamine/Znox 113 GM Tube 1 APPLIC TOPICAL ×2 (05:30→20:09)
--- NOTE | 2022-10-05 08:22 | MDS.RN ---
Information for the mds was obtained from review of the clinical record, interview of resident, staff, and direct observation of resident's care.
[2022-10-05] MEDS: Hydrocortisone 2.5% Crm 1 APPLIC TOPICAL (08:34)
[2022-10-05 11:00] VITALS: PULSE 75; RESP 18; O2SAT 96
[2022-10-05 14:32] VITALS: BP 133/67; PULSE 78; RESP 16; TEMP 36.4; O2SAT 97
--- NOTE | 2022-10-05 14:41 | NURSING ---
dr ohara notified of pt not having PCP, no record of vaccine history. pt poor historian. new order to administer prevnar 20.
[2022-10-05] MEDS: Rivaroxaban 10 MG Tablet PO (18:07)
[2022-10-06] MEDS: Senna/Docusate Sodium 1 Tablet 2 TABLET PO (05:16)
[2022-10-06] MEDS: Arthritis Pain Compound 60 CLICK TUBE TOPICAL ×2 (05:18→17:25)
[2022-10-06] MEDS: Ammonium Lactate 225 gm Bottle 1 APPLIC TOPICAL ×2 (05:19→17:25)
[2022-10-06] MEDS: Acetaminophen 500 MG Tablet 1000 MG PO ×2 (05:21→19:53)
[2022-10-06] MEDS: Nystatin Powder 15gm Bottle 1 APPLIC TOPICAL ×2 (05:22→17:26)
[2022-10-06] MEDS: Menthol/Lanolin/Calamine/Znox 113 GM Tube 1 APPLIC TOPICAL ×2 (05:22→19:53)
[2022-10-06] MEDS: Pneumococcal Vaccine 20 Valent 0.5 ML Syringe IM (11:16)
[2022-10-06 14:14] VITALS: BP 123/54; PULSE 75; RESP 18; TEMP 36.4; O2SAT 96
[2022-10-06] MEDS: Rivaroxaban 10 MG Tablet PO (17:25)
[2022-10-06 19:44] VITALS: PULSE 79; RESP 16; O2SAT 92
[2022-10-07] MEDS: Ammonium Lactate 225 gm Bottle 1 APPLIC TOPICAL ×2 (05:13→17:49)
[2022-10-07] MEDS: Nystatin Powder 15gm Bottle 1 APPLIC TOPICAL ×2 (05:14→17:50)
[2022-10-07] MEDS: Arthritis Pain Compound 60 CLICK TUBE TOPICAL ×2 (05:14→17:51)
[2022-10-07] MEDS: Menthol/Lanolin/Calamine/Znox 113 GM Tube 1 APPLIC TOPICAL ×2 (05:14→19:57)
[2022-10-07] MEDS: Senna/Docusate Sodium 1 Tablet 2 TABLET PO ×2 (05:14→17:52)
[2022-10-07] MEDS: Acetaminophen 500 MG Tablet 1000 MG PO ×2 (05:20→17:51)
[2022-10-07 11:14] VITALS: PULSE 72; RESP 18; O2SAT 98
[2022-10-07 14:34] VITALS: BP 125/48; PULSE 73; RESP 16; TEMP 36.3; O2SAT 96
[2022-10-08] MEDS: Nystatin Powder 15gm Bottle 1 APPLIC TOPICAL ×2 (05:41→17:24)
[2022-10-08] MEDS: Menthol/Lanolin/Calamine/Znox 113 GM Tube 1 APPLIC TOPICAL (05:41)
[2022-10-08] MEDS: Ammonium Lactate 225 gm Bottle 1 APPLIC TOPICAL ×2 (05:41→17:28)
[2022-10-08] MEDS: Senna/Docusate Sodium 1 Tablet 2 TABLET PO ×2 (05:42→17:24)
[2022-10-08] MEDS: Arthritis Pain Compound 60 CLICK TUBE TOPICAL ×2 (05:42→17:23)
[2022-10-08] MEDS: Acetaminophen 500 MG Tablet 1000 MG PO ×2 (06:24→17:34)
--- NOTE | 2022-10-08 09:13 | CASEMGMT ---
Social Work SW spoke with pt and discussed DC goals. Pt's goal is to return home with one person assist, where SO can assist. Pt stated she wants to be able to go to the bathroom independently. Pt is also requesting a w.c. SW to coordinate at [place]. Pt stated she is planning to have a hip surgery and would like to return to TCU. SW educated to precert process and Dr needing to schedule, so goal is pt would DC home first prior to surgery. Pt expressed understanding. IDT requesting additional time for therapy to continue working with pt. Michelle Rutledge, CREDIT RATING INSPECTOR HOOP PUNCHER
[2022-10-08 14:18] VITALS: BP 138/64; PULSE 77; RESP 18; TEMP 36.3; O2SAT 96
[2022-10-08] MEDS: Hydrocortisone 2.5% Crm 1 APPLIC TOPICAL (17:25)
[2022-10-09] MEDS: Menthol/Lanolin/Calamine/Znox 113 GM Tube 1 APPLIC TOPICAL ×2 (05:24→19:36)
[2022-10-09] MEDS: Nystatin Powder 15gm Bottle 1 APPLIC TOPICAL ×2 (05:25→17:33)
[2022-10-09] MEDS: Arthritis Pain Compound 60 CLICK TUBE TOPICAL ×2 (05:25→17:32)
[2022-10-09] MEDS: Ammonium Lactate 225 gm Bottle 1 APPLIC TOPICAL ×2 (05:32→17:32)
[2022-10-09 10:00] VITALS: PULSE 83; RESP 16; O2SAT 95
[2022-10-09 14:07] VITALS: BMI 41.5
[2022-10-09] MEDS: Acetaminophen 500 MG Tablet 1000 MG PO (15:45)
[2022-10-09 16:00] VITALS: BP 145/68; PULSE 72; RESP 16; TEMP 36.5; O2SAT 95
--- NOTE | 2022-10-09 16:13 | CASEMGMT ---
Social Work SW spoke with pt in room. SO, Mervin, present in room. Introduced self and role. Discussed DC plans. Educated pt to insurance setting DC date for 10/13 and inquired about readiness to DC home. Pt expressed uncertainty with returning home and stated I will have to see how far I keep walking each day. SW offered to assist with coordinating pt to transfer to another SNF until pt feels ready to DC home. SW educated that IDT would prefer if pt transfer to a SNF to gain more independence as Mervin is limited with his assistance. Pt denied and stated she will not be going to a SNF, she would like to go home and get HHC. SW to coordinate DC needs at home. Pt needs a 20 in. w/c, FWW and half bed rail, skilled HHC PT/OT/ST/SN/SANCHEZ/SW. Pt has not used a HHC since 2013 and does not have a preference. Pt denied reviewing list and agreeable for this worker to place referrals. SW also provided resources for medical alert requested by pt. SW to make several HHC referrals via [facility] and send DME referrals to [id number]. Will continue to follow. Michelle Rutledge, PINKING SEWING MACHINE OPERATOR CUSTOMER MARKETING INTERN
[2022-10-10 05:44] LABS: Absolute Lymphocyte Count 1.13 X10^3/uL (0.83-4.51); Basophil# 0.04 X10^3/uL; Basophil% 0.8 % (0-1); Eosinophil# 0.24 X10^3/uL; Hematocrit 39.8 % (37-47); Hemoglobin 12.2 g/dL (12.0-15.0); Lymphocyte # 1.13 X10^3/ul (0.83-4.51); Lymphocyte % 23.4 % (19-41); Mean Corp Hgb Conc 30.7 g/dL (32-36); Mean Corpuscular Hgb 26.3 pg (27.0-32.0); Mean Platelet Vol. 10.8 fl (6.2-12.0); Monocyte# 0.37 X10^3/uL; Monocyte% 7.7 % (0-10); NRBC Flagged by Analyzer 0 % (0-5); Neutrophil # 3.02 X10^3/uL (2.7-7.7); Neutrophil % 62.7 % (47-70); Platelet Count 234 K/mm3 (150-450); RBC Distribution Width CV 17.1 % (11.6-14.6); RBC Distribution Width SD 53.7 fl (35.1-43.9); Red Blood Count 4.63 M/mm3 (4.2-5.4); White Blood Count 4.8 K/mm3 (4.4-11.0)
[2022-10-10 06:10] LABS: Anion Gap 1 (5-15); BUN 19 mg/dL (7-18); BUN/Creat Ratio 28.3 RATIO (10-20); Calcium,Total 8.9 mg/dL (8.5-10.1); Chloride 112 mmol/L (98-107); Creatinine, Serum 0.67 mg/dL (0.55-1.02); EST Glomerular Filtration Rate 90 mL/min (>60); Est Glom Filt Rate - Afr Amer 109 mL/min (>60); Glucose 89 mg/dL (74-106); Potassium 4.2 mmol/L (3.5-5.1); Sodium Level 140 mmol/L (136-145)
[2022-10-10] MEDS: Acetaminophen 500 MG Tablet 1000 MG PO ×2 (11:25→19:48)
[2022-10-10] MEDS: Menthol/Lanolin/Calamine/Znox 113 GM Tube 1 APPLIC TOPICAL ×2 (11:27→19:49)
[2022-10-10] MEDS: Ammonium Lactate 225 gm Bottle 1 APPLIC TOPICAL ×2 (11:27→17:29)
[2022-10-10] MEDS: Arthritis Pain Compound 60 CLICK TUBE TOPICAL ×2 (11:28→17:30)
[2022-10-10] MEDS: Nystatin Powder 15gm Bottle 1 APPLIC TOPICAL ×2 (11:29→17:29)
--- NOTE | 2022-10-10 15:40 | CASEMGMT ---
Addendum entered by Michelle Rutledge 10/10/22 16:48: From 7 [facility] referrals, [facility] is able to accept. Pt and Dr Mckeon agreed for him to be PCP. Original Note: Social Work Insurance issued LCD 10/12, DC 10/13. Spoke with pt to confirm DC plans home. SW to update pt when an accepting skilled [facility] agency is provided. SW left message with [facility] to ensure the receipt of script, and if they can deliver DME to pts room prior to DC. SW make APS referral to [facility]. Will continue to follow. Plan: DC home alone 10/13, [facility] PT/OT/ST/SN/SANCHEZ/SW, APS, bed rail, FWW, w/c Michelle Rutledge, GATE ATTENDANT LAUNDRY OR DRY CLEANERS COUNTER CLERK
[2022-10-10 16:00] VITALS: BP 120/59; PULSE 65; RESP 16; TEMP 36.3; O2SAT 93
[2022-10-10 19:51] VITALS: O2SAT 97
--- NOTE | 2022-10-10 20:45 | DS.PCM_ITS ---
Providers Date of Admission: 09/25/22 Primary Care Physician: No Primary Care Phys Reason For Visit: FALL Diagnosis Discharge Diagnosis (1) Debility: Status: Acute Code(s): R53.81 - Other malaise (2) Fall: Status: Resolved Code(s): W19.XXXA - Unspecified fall, initial encounter (3) Contusion of hip, left: Status: Resolved Code(s): S70.02XA - Contusion of left hip, initial encounter (4) Contusion of knee, left: Status: Resolved Code(s): S80.02XA - Contusion of left knee, initial encounter (5) Osteoarthritis of left hip: Status: Acute Code(s): M16.12 - Unilateral primary osteoarthritis, left hip (6) BMI 40.0-44.9, adult: Status: Acute Code(s): Z68.41 - Body mass index [BMI] 40.0-44.9, adult Plan 77 year old female with below past medical history hospitalized for fall, left hip contusion, admitted to TCU with debility, here for rehabilitation, strengthening, prior to discharge home alone. * Debility - PT/OT. * Pain - Tylenol 1000mg q6h prn pain (1-10). * Bowel - senna/colace 1 tablet bid, MOM 30ml po x 1 prn. * Adult immunization - Administer pneumonia vaccine, covid19 vaccine, flu vaccine as appropriate. * DVT prophylaxis - HAS-BLED 1 intermediate risk of bleeding, [place] 7 High risk of blood clots, overall intermediate risk, Rx Xarelto 10mg daily x 10 days. * Toe irritation - Lac-Hydrin topical bid. * Left antecube rash - HC 2.5% topical tid prn. * Skin irritation - Calmoseptine topical bid. * Thrush - Nystatin 500,000 4x/day x 10 days. * Tinea Corporis - Nystatin powder topical bid. * BMI 43.6 - Weight loss encouraged. Medications at Discharge Home Medications acetaminophen 500 mg tablet 1,000 mg PO Q6H PRN PRN Pain Score 1-10 #0 tabs 10/10/22 Hospital Course Operations None Procedures None Summary of Care Provided Minutes Spent on Discharge: 35 Hospital Course: 77 year old female with below past medical history hospitalized for fall, left hip contusion, admitted to TCU with debility, here for rehabilitation, strengthening, prior to discharge home alone. Discharge home alone 10/13/2022, [facility] PT/OT/ST/SN/SANCHEZ/SW, APS, bed rail, Front Wheeled Walker, Wheelchair. Physical Exam Const alert General Appearance: cooperative HEENT normocephalic Eyes PERRL and EOMs intact bilaterally Neck supple, no JVD and no carotid bruits Resp normal respiratory effort, normal air movement and clear to auscultation bilaterally Cardio regular rate and regular rhythm GI normal to inspection, nondistended, normoactive bowel sounds, non-tender and non-distended Extremity normal capillary refill General Extremity: Negative for edema Skin no rashes or lesions noted General Skin Exam: no breakdown Psych affect normal Appearance: appropriate Weight / BMI Weight Weight: 117.072 kg Body Mass Index (BMI) 41.5 ABG / Lab / Microbiology Data Result Diagrams: 10/10/22 05:11 10/10/22 05:11 Laboratory: Laboratory Results - last 24 hr 10/10/22 05:11: WBC 4.8, RBC 4.63, Hgb 12.2, Hct 39.8, MCV 86.0, MCH 26.3 L, MCHC 30.7 L, RDW Std Deviation 53.7 H, RDW Coeff of Vitaliy 17.1 H, Plt Count 234, MPV 10.8, Immature Gran % (Auto) 0.400, Neut % (Auto) 62.7, Lymph % (Auto) 23.4, [place] % (Auto) 7.7, Eos % (Auto) 5.0, Baso % (Auto) 0.8, Absolute Neuts (auto) 3.0, Absolute Lymphs (auto) 1.13, Nucleated RBC % 0 10/10/22 05:11: Sodium 140, Potassium 4.2, Chloride 112 H, Carbon Dioxide 27.0, Anion Gap 1 L, BUN 19 H, Creatinine 0.67, Estim Creat Clear Calc 43.40, Est GFR (MDRD) Af Amer 109, Est GFR (MDRD) Non-Af 90, BUN/Creatinine Ratio 28.3 H, Glucose 89, Calcium 8.9 Microbiology: Microbiology 10/02/22 06:00 Nasal Secretion SARS-CoV-2 Antigen (Rapid) - Final 09/29/22 12:50 Nasal Secretion SARS-CoV-2 Antigen (Rapid) - Final 09/26/22 18:30 Urine Catheter - [place] Urine Culture - Final Escherichia coli 09/27/22 05:55 Nasal Secretion SARS-CoV-2 Antigen (Rapid) - Final D/C Instructions Discharge Diet: No restrictions Discharge Activity: Return to Normal Activity, May Shower and Use Walker Weight Bearing Status: Weight bearing as tolerated Call your doctor if you observe: Fever of 101 or Higher, Inability to urinate, Inability to have a bowel movement, Shortness of breath, Dizziness, Fainting spells, Swelling in the ankles, Chest pain and Uncontrolled pain Additional Instructions: Discharge home alone 10/13/2022, [facility] PT/OT/ST/SN/SANCHEZ/SW, APS, bed rail, Front Wheeled Walker, Wheelchair. Please Follow Up With: Ad Mckeon Chi, MD When: Within 1 week. Meaningful Use Info Meaningful Use Diagnoses (Choose all that apply): None applicable Discharge Plan Admission Admit Date/Time: 09/25/22 15:43 Primary Reason for Your Visit: Debility. Attending Provider: Ad Mckeon Chi Primary Care Provider: Care Physician,No Primary Instructions Additional Instructions / Restrictions: Discharge home alone 10/13/2022, [facility] PT/OT/ST/SN/SANCHEZ/SW, APS, bed rail, Front Wheeled Walker, Wheelchair. Discharge Orders/Prescriptions Prescriptions: New acetaminophen 500 mg Tablet 1,000 mg PO Q6H PRN PRN (Reason: Pain Score 1-10) Qty: 0 0RF Referrals / Follow Up: Ad Mckeon Chi, MD [Med Staff - Active Staff] - Within 1 Week Disposition Disposition (needs filled in before D/C Order can be placed): Home Health Service
[2022-10-11] MEDS: Ammonium Lactate 225 gm Bottle 1 APPLIC TOPICAL ×2 (05:19→17:28)
[2022-10-11] MEDS: Nystatin Powder 15gm Bottle 1 APPLIC TOPICAL ×2 (05:20→17:28)
[2022-10-11] MEDS: Menthol/Lanolin/Calamine/Znox 113 GM Tube 1 APPLIC TOPICAL ×2 (05:20→20:55)
[2022-10-11] MEDS: Arthritis Pain Compound 60 CLICK TUBE TOPICAL ×2 (05:20→17:28)
[2022-10-11] MEDS: Acetaminophen 500 MG Tablet 1000 MG PO ×2 (09:37→20:53)
[2022-10-11 11:29] VITALS: PULSE 74; RESP 18; O2SAT 95
--- NOTE | 2022-10-11 12:27 | MDS.RN ---
MDS pain assessment for KRISTI 10/13/22 completed.
[2022-10-11 13:55] VITALS: BP 104/55; PULSE 71; RESP 14; TEMP 36.3; O2SAT 94
--- NOTE | 2022-10-11 16:18 | CASEMGMT ---
Addendum entered by Michelle Rutledge 10/12/22 15:59: Pt stated she will not get the bed rail if insurance is not paying for it. But pt will have SO hand picker the w/c at [facility] [place] when available. Addendum entered by Michelle Rutledge 10/12/22 15:49: Received call from [facility] that they do not have the w/c needed in stock and unsure when it would be available, but they do have the FWW. YOVANI contacted [employer] and they have the w/c, however, it needs submitted to insurance and due to it being late on Saturday, the approval will not arrive until Saturday. After that, the w/c can be picked up. YOVANI attempted to contact SO but no voicemail set up. YOVANI spoke with pt to notify her. Addendum entered by Michelle Rutledge 10/12/22 15:15: SW spoke with [employer] and insurance does not cover the bed rail. SO can purchase from [employer]. [facility] can deliver the FWW and w/c to pt's room today YOVANI updated pt. Pt appreciative. [facility] APS referral made, left detailed voicemail with Bal since pt is discharging over the weekend. Original Note: Social Work Phone call to Loraine at [facility] who states they will not deliver DME to pt home nor hospital. Loraine also states she is uncertain at this time if she will have a walker in stock by Saturday. YOVANI met with pt who states she does not have anyone who can drive to [facility] to hand picker DME. Her significant other can possibly take a cab [facility]. Due to logistics of this and uncertainty of walker availabilty, referral made to [facility] for delivery of walker and w/c to pt room prior to discharge. Will await determination if they can accomodate this. Pt concerned as she has not heard from [facility] yet. YOVANI sent a message through [facility] requesting [facility] call pt directly on room phone and number provided. Pt states that she has decided that she will take a cab home from the hospital on Saturday. Mervin will bring a cab here and then go home with pt in the cab. SW to continue to follow for d/c completion. SHERIF Sloan
[2022-10-11] MEDS: Senna/Docusate Sodium 1 Tablet 2 TABLET PO (17:28)
[2022-10-12] MEDS: Ammonium Lactate 225 gm Bottle 1 APPLIC TOPICAL ×2 (05:19→17:54)
[2022-10-12] MEDS: Nystatin Powder 15gm Bottle 1 APPLIC TOPICAL ×2 (05:19→17:52)
[2022-10-12] MEDS: Arthritis Pain Compound 60 CLICK TUBE TOPICAL ×2 (05:19→17:53)
[2022-10-12] MEDS: Menthol/Lanolin/Calamine/Znox 113 GM Tube 1 APPLIC TOPICAL ×2 (05:20→20:15)
--- NOTE | 2022-10-12 11:41 | CASEMGMT ---
Social Work BIMS () and PHQ-9 (07/20) completed for MDS assessment. Michelle Rutledge MSW HEAD OF [employer]
--- NOTE | 2022-10-12 11:42 | CASEMGMT ---
Social Work BIMS (10/06) and PHQ-9 (07/20) completed for MDS assessment. Michelle Rutledge MSW TRANSPORT RN
[2022-10-12 15:36] VITALS: BP 131/62; PULSE 75; RESP 17; TEMP 35.8; O2SAT 96
[2022-10-12] MEDS: Senna/Docusate Sodium 1 Tablet 2 TABLET PO (17:54)
[2022-10-12] MEDS: Acetaminophen 500 MG Tablet 1000 MG PO (17:54)
[2022-10-12 20:10] VITALS: PULSE 76; RESP 18; O2SAT 95
[2022-10-13] MEDS: Arthritis Pain Compound 60 CLICK TUBE TOPICAL (05:24)
[2022-10-13] MEDS: Menthol/Lanolin/Calamine/Znox 113 GM Tube 1 APPLIC TOPICAL (05:25)
[2022-10-13] MEDS: Ammonium Lactate 225 gm Bottle 1 APPLIC TOPICAL (05:25)
[2022-10-13] MEDS: Nystatin Powder 15gm Bottle 1 APPLIC TOPICAL (05:25)
[2022-10-13] MEDS: Acetaminophen 500 MG Tablet 1000 MG PO (05:27)
[2022-10-13] MEDS: Senna/Docusate Sodium 1 Tablet 2 TABLET PO (05:29)
[2022-10-13 08:30] VITALS: PULSE 85; RESP 18; O2SAT 95
[2022-10-13 09:30] VITALS: BP 135/72; PULSE 85; RESP 18; TEMP 36.6; O2SAT 95
== END 2022-10-13 09:30 | disposition home health service (06) | DRG 554 ==
PROVIDERS: Admitting Provider Family Medicine Geriatric Medicine; Referring Provider Family Medicine Geriatric Medicine; Visit Provider Family Medicine Geriatric Medicine
DX: M16.12 Unilateral primary osteoarthritis, left hip (principal); B37.0 Candidal stomatitis; I10 Essential (primary) hypertension; W19.XXXD Unspecified fall, subsequent encounter; S70.02XD Contusion of left hip, subsequent encounter; S80.02XD Contusion of left knee, subsequent encounter; B35.4 Tinea corporis; R21 Rash and other nonspecific skin eruption; Z23 Encounter for immunization
CPT/HCPCS: 0134A; 36415; 80048; 81001; 85025; 87077; 87086; 87088; 87186; 87811; 90677; 91313; 92507; 92523; 97110; 97116; 97162; 97166; 97530; 97535; 97802; G0008; G0009; 90686

== ENCOUNTER 2023-05-12 04:02 | Emergency (ER) | payer MEDICARE, MEDICAID, SELFPAY ==
[2023-05-12 04:04] VITALS: BP 176/138; PULSE 93; RESP 25; TEMP 36.8; O2SAT 97; BMI 41.8
--- NOTE | 2023-05-12 04:24 | CT_ITS ---
INDICATION: hallucination EXAMINATION: CT BRAIN - CT Head or Brain W/O Contrast Injection TECHNIQUE: Multiple axial images were obtained of the head with sagittal and coronal reconstructed images. Individualized dose optimization techniques were used for this CT. IV contrast dosage and agent: None. COMPARISON: 09/22/2022 CT. FINDINGS: BRAIN PARENCHYMA: No evidence of an acute infarct or intracranial hemorrhage. No evidence of a mass. CSF SPACES: Stable moderate to severe cerebral atrophy. CALVARIUM, SKULL BASE, PARANASAL SINUSES AND MASTOID AIR CELLS: No fracture. Mastoid air cells are clear. Visualized paranasal sinuses are unremarkable. ORBITS: The globes, extraocular muscles, optic nerves and retrobulbar fat are unremarkable. CT/Brain/Head without Contrast IMPRESSION: No acute intracranial abnormality. Electronically Signed: Jason Bui DO at 6:15 EST ,
--- NOTE | 2023-05-12 04:27 | EDS_ITS ---
HPI History of Present Illness Chief Complaint: Alt LOC Informant: patient and spouse/S.O. Narrative Narrative: The patient called EMS due to seeing people in her house. This patient has a bit of flight of ideas and pressured speech so it is a little hard to get the story. But she states that she has had sinus congestion for months. Tonight she thought she saw people in another room of her house. There were women and men. She thought the man had guns. But she does not think they were real. At first she thought it was her cataracts causing this. But when I talk to her and her significant other evidently she has seen people before and she sees things on occasion. She has a history of anxiety and is on buspirone. She used to be on Xanax many years ago. But she has no history of schizophrenia or bipolar that I can get from her. I cannot get from her that there have been any physical change in her condition recently. She is worried about an infection because EMS told her she might have sepsis. They evidently got a low blood pressure and gave her fluids. But she states she was not feeling weak or lightheaded and her blood pressure is good here. We will follow this certainly. No new medicines. [facility] Medical History Anxiety Hypertension Home Medications buspirone 7.5 mg tablet 7.5 mg PO BID 05/12/23 [History Last Taken Unknown] cephalexin 500 mg capsule 500 mg PO Q12 #14 CAPSULES 05/12/23 [Rx Last Taken Unknown] cetirizine 10 mg tablet (24Hour Allergy) 10 mg PO DAILY 05/12/23 [History Last Taken Unknown] rosuvastatin 20 mg tablet 20 mg PO DAILY 05/12/23 [History Last Taken Unknown] Allergy/AdvReac Type Severity Reaction Status Date / Time lidocaine Allergy Itching Verified 05/12/23 04:04 Sulfa (Sulfonamide Allergy Rash Verified 09/22/22 13:49 Antibiotics) Surgical History History of total left hip replacement Social History household members: none and other details: Significant other sleeps on couch some days. Smoking Status: Never smoker alcohol intake: never substance use type: does not use ROS ROS ED Constitutional Constitutional ED: Denies chills or fever(s) Eyes Eyes: Reports other Details: [place] hallucinations but no blurring. ; Denies blurry vision, change in vision or diplopia ENT ENT ED: Reports other Details: Chronic nasal congestion. ; Denies rhinorrhea Cardiovascular Cardiovascular: Denies chest pain or palpitations Respiratory/Chest Respiratory/Chest: Denies cough or sputum Gastrointestinal Gastrointestinal: Denies abdominal pain, nausea or vomiting Genitourinary Genitourinary ED: Reports other Details: Denies urinary symptoms but states that she might have a UTI. ; Denies dysuria, hematuria or urinary frequency Musculoskeletal Musculoskeletal: Denies arthralgias or back pain Integumentary Denies rash Neurologic Neurologic: Reports other Details: States she hit her head May of last year but it does not hurt and she has not had it recently. ; Denies headache(s), paresthesias or weakness Psychiatric Psychiatric: Reports anxiety and other Details: See history of present illness. Hematologic/Lymphatic Hematologic/Lymphatic: Denies easy bleeding or easy bruising Allergic/Immunologic Allergic/Immunologic ED: Denies urticaria EXAM Physical Exam Narrative Exam Narrative: General: Patient is awake alert nontoxic. She actually knows her medicine her past history pretty well. HEENT: There is no purulent drainage. No facial tenderness swelling or erythema. Mucous membranes are moist. Neck is supple. No pain with range of motion. Lungs are clear bilaterally. Saturations are normal at 97% on room air showing no hypoxia. Heart is regular. Rate of about 90. There is a 1?2 out of 6 systolic ejection murmur at the right upper sternal border. Abdomen is obese but soft and nontender. Extremities show no notable edema although they are not thin. Neurological she is awake alert. She is oriented x3. Psychiatry: She recognizes that what she saw was likely not real. But she does have a little bit of pressured speech and flight of ideas a little bit hard to keep on task. Const Vital Signs: 05/12/23 04:04 Temperature 98.3 F Temperature Source Oral Pulse Rate 93 Respiratory Rate 25 H Blood Pressure 176/138 H Blood Pressure Mean 150 Pulse Ox 97 Oxygen Delivery Method Room Air MDM MDM MDM Narrative Medical decision making narrative: CBC shows no marked abnormalities. Patient's electrolytes show minimal elevation in BUN to creatinine ratio. But electrolytes are overall within normal limits. Glucose is relatively controlled at 112. Patient's lactic acid is negative. Patient's liver function test are normal. No patient's urinalysis does show cloudy urine with increased whites some leukocyte Estrace. And 3+ bacteria. Urine toxicology is negative. Serum alcohol is negative. My independent interpretation of the patient's chest x-ray shows no acute process and final reading is similar. My independent patient of the CT scan of the head shows no acute process and final reading is similar. I talked with the patient and her boyfriend again. She is not seeing anything now. She states sometimes she sees things in her house. She thinks it is because she has been cooped up in her house for 3 years since [facility]. She is not suicidal or homicidal. She does not want to hurt these visions and they do not want to hurt her. I do not think these are due to the UTI because she has been having them prior to now for the last 3 years. This may be some baseline psychiatric illness. But since she is caring for herself, has support, not seeing anything now, I do not think we need to admit her for this. I will treat the UTI because last time she had a urinalysis similar to this she did grow out E. coli that was pansensitive. She and her boyfriend are comfortable with this plan. Lab Data Attestation: I reviewed the patient's lab results. Labs: Laboratory Results - last 24 hr 05/12/23 05/12/23 04:40 05:02 WBC 6.3 RBC 4.68 Hgb 12.6 Hct 40.5 MCV 86.5 MCH 26.9 L MCHC 31.1 L RDW Std Deviation 45.6 H RDW Coeff of Vitaliy 14.4 Plt Count 185 MPV 10.5 Immature Gran % (Auto) 0.200 Neut % (Auto) 80.6 H Lymph % (Auto) 10.9 L [place] % (Auto) 5.6 Eos % (Auto) 2.1 Baso % (Auto) 0.6 Absolute Neuts (auto) 5.0 Absolute Lymphs (auto) 0.68 L Nucleated RBC % 0 Sodium 145 Potassium 3.5 Chloride 115 H Carbon Dioxide 25.0 Anion Gap 5 BUN 16 Creatinine 0.64 Estim Creat Clear Calc 43.40 Est GFR (MDRD) Af Amer 116 Est GFR (MDRD) Non-Af 96 BUN/Creatinine Ratio 25.1 H Glucose 112 H Lactic Acid 1.0 Calcium 8.4 L Total Bilirubin 0.50 AST 8 L ALT 7 L Alkaline Phosphatase 86 Total Protein 6.4 Albumin 3.5 Globulin 2.9 Albumin/Globulin Ratio 1.2 Urine Color Yellow Urine Clarity Sl. Cloudy Urine pH 5.0 Ur Specific [place] 1.025 Urine Protein 15 H Urine Glucose (UA) Normal Urine Ketones Negative Urine Occult Blood 10 H Urine Nitrite Negative Urine Bilirubin Negative Urine Urobilinogen Normal Ur Leukocyte Esterase 25 H Urine RBC 0 SEEN Urine WBC 5-10 SEEN Ur Squamous Epith Cells 0 SEEN Urine Bacteria 3+ Urine Mucus 0 SEEN Urine Opiates Screen NEGATIVE Urine Methadone Screen NEGATIVE Ur Barbiturates Screen NEGATIVE Ur Phencyclidine Scrn NEGATIVE Ur Amphetamines Screen NEGATIVE MDMA (Ecstasy) Screen NEGATIVE U Benzodiazepines Scrn NEGATIVE Urine Cocaine Screen NEGATIVE U Cannabinoids Screen NEGATIVE Ur Drug Screen Comment Ethyl Alcohol < 3.0 Radiography Diagnostic Testing: Clinical Impression(s) from Imaging Studies Brain CT 05/12/23 04:24 IMPRESSION: No acute intracranial abnormality. Electronically Signed: Jason Bui DO at 6:15 EST , Chest X-Ray 05/12/23 05:20 IMPRESSION: No evidence of acute cardiopulmonary disease. Electronically Signed: Jason Bui DO at 6:17 EST , EKG Initial EKG: Comments: Management independent interpretation the patient's EKG shows regular rhythm with possible first-degree AV block although is not consistent seeing any P wave. She does have a right bundle branch block. This is not new. No acute ST patient. No ventricular ectopy. QRS duration is a little wide. QTc is within normal. This is similar to 1 from 09/22/2022. Discharge Plan Triage Chief Complaint: Alt LOC ED Provider: Yobany Pascual Dx/Rx/DC Orders Clinical Impression: History of hallucinations, Acute UTI Instructions: Urinary Tract Infections in Women Prescriptions: New cephalexin [cephalexin] 500 mg capsule 500 mg PO Q12 Qty: 14 0RF No Action cetirizine [24Hour Allergy] 10 mg tablet 10 mg PO DAILY buspirone 7.5 mg tablet 7.5 mg PO BID Patient Comments: take 1 tablet by mouth twice a day rosuvastatin 20 mg tablet 20 mg PO DAILY Patient Comments: take 1 tablet by mouth once daily Primary Care Provider: Josh Monroy Referrals: Josh Monroy MD [Primary Care Provider] - 3-5 Days Disposition Disposition: Home, Self Care
[2023-05-12 04:50] LABS: Absolute Lymphocyte Count 0.68 X10^3/uL (0.83-4.51); Basophil# 0.04 X10^3/uL; Basophil% 0.6 % (0-1); Eosinophil# 0.13 X10^3/uL; Eosinophils% 2.1 % (0-5); Hematocrit 40.5 % (37-47); Hemoglobin 12.6 g/dL (12.0-15.0); Lymphocyte # 0.68 X10^3/ul (0.83-4.51); Lymphocyte % 10.9 % (19-41); Mean Corp Hgb Conc 31.1 g/dL (32-36); Mean Corpuscular Hgb 26.9 pg (27.0-32.0); Mean Corpuscular Volume 86.5 fL (81-99); Mean Platelet Vol. 10.5 fl (6.2-12.0); Monocyte# 0.35 X10^3/uL; Monocyte% 5.6 % (0-10); NRBC Flagged by Analyzer 0 % (0-5); Neutrophil # 5.04 X10^3/uL (2.7-7.7); Neutrophil % 80.6 % (47-70); Platelet Count 185 K/mm3 (150-450); RBC Distribution Width CV 14.4 % (11.6-14.6); RBC Distribution Width SD 45.6 fl (35.1-43.9); Red Blood Count 4.68 M/mm3 (4.2-5.4); White Blood Count 6.3 K/mm3 (4.4-11.0)
[2023-05-12 05:07] LABS: Alcohol, Blood (Medical)-Serum < 3.0 mg/dL
[2023-05-12 05:09] LABS: Mucous, Urine 0 SEEN /hpf (<or=2+); Red Blood Cells-Urine 0 SEEN /hpf (0-5); Squamous Epithelial Cells - UA 0 SEEN /hpf (5-10)
[2023-05-12 05:10] LABS: ALB/GLOB Ratio 1.2 RATIO (0.9-2.4); AST(SGOT) 8 U/L (15-37); Alanine Aminotransfer ALT/SGPT 7 U/L (13-56); Albumin, Serum 3.5 g/dL (3.2-5.0); Alkaline Phosphatase 86 U/L (45-117); Anion Gap 5 (5-15); BUN 16 mg/dL (7-18); BUN/Creat Ratio 25.1 RATIO (10-20); Calcium,Total 8.4 mg/dL (8.5-10.1); Chloride 115 mmol/L (98-107); Creatinine, Serum 0.64 mg/dL (0.55-1.02); EST Glomerular Filtration Rate 96 mL/min (>60); Est Glom Filt Rate - Afr Amer 116 mL/min (>60); Globulin 2.9 g/dL (2.2-4.2); Glucose 112 mg/dL (74-106); Potassium 3.5 mmol/L (3.5-5.1); Protein, Total 6.4 g/dL (6.4-8.2); Sodium Level 145 mmol/L (136-145)
[2023-05-12 05:11] LABS: Color, Urine Yellow (Yellow); Glucose, Dipstick Normal (Normal); Ketone-Dipstick Negative (Negative); Leukocyte Esterase-Dipstick 25 /ul (Negative); Nitrite-Dipstick Negative (Negative); Occult Blood-Urine 10 /ul (Negative); Protein-Dipstick 15 mg/dl (Negative); Specific Gravity, Urine 1.025 (1.002-1.030); Urine Bilirubin Dipstick Negative (Negative); Urine Clarity Sl. Cloudy (Clear); Urine Urobilinogen Normal (Normal)
[2023-05-12 05:19] LABS: Bacteria 3+ /hpf (None Seen); White Blood Cells 5-10 SEEN /hpf (0-5)
--- NOTE | 2023-05-12 05:20 | RAD_ITS ---
INDICATION: fever EXAMINATION/TECHNIQUE: X-RAY - XR Chest 1 View COMPARISON: 09/22/2022. FINDINGS: LINES/DEVICES: None. LUNGS: No consolidation or evidence of an effusion. No evidence of edema or a pneumothorax. MEDIASTINUM AND CARDIOVASCULAR STRUCTURES: Cardiac silhouette is normal in size and contour. Mediastinum is unremarkable. BONES AND SOFT TISSUES: No acute abnormality. RAD/Chest 1 View (Portable) IMPRESSION: No evidence of acute cardiopulmonary disease. Electronically Signed: Jason Bui DO at 6:17 EST ,
[2023-05-12 05:27] LABS: Amphetamine Urine VISTA NEGATIVE (<1000 ng/mL); Barbiturate Urine VISTA NEGATIVE (< 200 ng/mL); Benzodiazepine Urine VISTA NEGATIVE (< 200 ng/mL); Cocaine Urine VISTA NEGATIVE (< 300 ng/mL); Ecstacy Urine VISTA NEGATIVE (< 500 ng/mL); Methadone Urine VISTA NEGATIVE (< 300 ng/mL); PCP Urine VISTA NEGATIVE (< 25 ng/mL); THC Urine VISTA NEGATIVE (< 50 ng/mL); Vista UDS pH Range 5
[2023-05-12] MEDS: Cephalexin 250 MG Capsule 500 MG PO (06:44)
== END 2023-05-12 07:23 | disposition home or self-care (01) ==
PROVIDERS: Emergency Provider Emergency Medicine; PCP Family Medicine; Visit Provider Emergency Medicine
DX: R44.1 Visual hallucinations (principal); N39.0 Urinary tract infection, site not specified; F41.9 Anxiety disorder, unspecified; Z79.899 Other long term (current) drug therapy
CPT/HCPCS: 70450; 71045; 80053; 80307; 81001; 82077; 83605; 85025; 87040; 87077; 87086; 87088; 87186; 93005; 99285; A4216

== ENCOUNTER 2024-01-25 20:07 | Emergency (ER) | payer MEDICARE, MEDICAID, SELFPAY ==
[2024-01-25 20:07] VITALS: BP 161/84; PULSE 94; RESP 16; TEMP 36.7; O2SAT 93; BMI 39.1
--- NOTE | 2024-01-25 20:29 | RAD_ITS ---
EXAM: XR PELVIS, 1 OR 2 VIEWS CLINICAL INDICATION: Fall. Pain. TECHNIQUE: Frontal view of the pelvis. COMPARISON: 09/22/2022 pelvis radiographs FINDINGS: BONES/JOINTS: Status post right hip arthroplasty with similar appearance to the prior examination. Severe degenerative changes of the left hip with similar appearance to the prior examination. No acute fracture of the left hip. Degenerative changes in the lumbar spine with apparent postoperative changes of laminectomy. Symmetric arthrosis of the bilateral SI joints. No destructive or sclerotic lesions. Note that overlapping bowel shadows may however obscure fine detail. No widening of the pubic symphysis. SOFT TISSUES: No significant abnormality. No soft tissue swelling or gas. RAD/Pelvis 1 or 2 Views IMPRESSION: 1. Status post right hip arthroplasty with similar appearance to the prior examination. 2. Severe degenerative changes of the left hip with similar appearance to the prior examination. No acute fracture of the left hip. 3. No additional acute pathology. Electronically Signed: Broderick Allred DO at 21:18 EDT ,
--- NOTE | 2024-01-25 20:29 | CT_ITS ---
EXAM: CT HEAD AND CERVICAL SPINE WITHOUT INTRAVENOUS CONTRAST CLINICAL INDICATION: Fall. Pain. TECHNIQUE: Helically acquired images were obtained of the head/brain and cervical spine without intravenous contrast. 2D reformatted images were reviewed. This CT exam was performed using one or more of the following dose reduction techniques: automated exposure control, adjustment of the mA and/or kV according to patient size, and/or use of iterative reconstruction technique. COMPARISON: CT head, 05/12/2023 FINDINGS: BRAIN AND EXTRA-AXIAL SPACES: There is non-specific periventricular hypoattenuation which is most commonly related to chronic microvascular ischemic disease in a patient of this age. There is no mass, mass-effect, or shift of the midline structures. No evidence of acute infarct or acute intracranial hemorrhage. There is no evidence of pathologic extra-axial fluid. There is no hydrocephalus. Patent basal cisterns. Benign dural calcifications. Posterior fossa structures are unremarkable. SKULL: No significant abnormality. No discrete lytic or blastic abnormalities. SINUSES: No significant findings. MASTOID AIR CELLS: No significant abnormality. Clear. ORBITS: Left ocular lens extraction presumptively for the treatment of a cataract. Otherwise, no acute orbital pathology. VERTEBRAE: Multilevel facet, uncovertebral joint, and endplate osteophytosis. No fracture. No traumatic subluxation. No discrete lytic or blastic abnormality. Normal alignment. Aside from degenerative changes, normal craniocervical junction and cervicothoracic junction. DISCS/SPINAL CANAL/NEURAL FORAMINA: Mild to moderate multilevel spinal canal stenosis. Multilevel intervertebral disc height loss. Mild to moderate multilevel neural foraminal narrowing. SOFT TISSUES: No significant abnormality. No prevertebral soft tissue swelling. VASCULATURE: Arteriosclerosis. Vascular calcifications in the neck. LYMPH NODES: No significant abnormality. No cervical adenopathy. THYROID: Low-attenuation homogeneous left thyroid nodule measuring 4.5 cm. LUNG APICES: Centrilobular emphysema. CT/Brain/Head without Contrast IMPRESSION: 1. No CT evidence of acute intracranial pathology. Chronic microvascular ischemic changes. 2. No CT evidence of acute cervical spine injury. Multilevel degenerative changes. 3. Low-attenuation homogeneous left thyroid nodule measuring 4.5 cm. Mild mass effect upon the trachea. ACR White Paper guidelines (Denny JK, et al. JACR 2015;12(2):143-50) suggest further evaluation with thyroid ultrasound. 4. Centrilobular emphysema. Electronically Signed: Broderick Allred DO at 21:08 EDT ,
--- NOTE | 2024-01-25 20:29 | CT_ITS ---
EXAM: CT HEAD AND CERVICAL SPINE WITHOUT INTRAVENOUS CONTRAST CLINICAL INDICATION: Fall. Pain. TECHNIQUE: Helically acquired images were obtained of the head/brain and cervical spine without intravenous contrast. 2D reformatted images were reviewed. This CT exam was performed using one or more of the following dose reduction techniques: automated exposure control, adjustment of the mA and/or kV according to patient size, and/or use of iterative reconstruction technique. COMPARISON: CT head, 05/12/2023 FINDINGS: BRAIN AND EXTRA-AXIAL SPACES: There is non-specific periventricular hypoattenuation which is most commonly related to chronic microvascular ischemic disease in a patient of this age. There is no mass, mass-effect, or shift of the midline structures. No evidence of acute infarct or acute intracranial hemorrhage. There is no evidence of pathologic extra-axial fluid. There is no hydrocephalus. Patent basal cisterns. Benign dural calcifications. Posterior fossa structures are unremarkable. SKULL: No significant abnormality. No discrete lytic or blastic abnormalities. SINUSES: No significant findings. MASTOID AIR CELLS: No significant abnormality. Clear. ORBITS: Left ocular lens extraction presumptively for the treatment of a cataract. Otherwise, no acute orbital pathology. VERTEBRAE: Multilevel facet, uncovertebral joint, and endplate osteophytosis. No fracture. No traumatic subluxation. No discrete lytic or blastic abnormality. Normal alignment. Aside from degenerative changes, normal craniocervical junction and cervicothoracic junction. DISCS/SPINAL CANAL/NEURAL FORAMINA: Mild to moderate multilevel spinal canal stenosis. Multilevel intervertebral disc height loss. Mild to moderate multilevel neural foraminal narrowing. SOFT TISSUES: No significant abnormality. No prevertebral soft tissue swelling. VASCULATURE: Arteriosclerosis. Vascular calcifications in the neck. LYMPH NODES: No significant abnormality. No cervical adenopathy. THYROID: Low-attenuation homogeneous left thyroid nodule measuring 4.5 cm. LUNG APICES: Centrilobular emphysema. CT/Spine Cervical without Contras IMPRESSION: 1. No CT evidence of acute intracranial pathology. Chronic microvascular ischemic changes. 2. No CT evidence of acute cervical spine injury. Multilevel degenerative changes. 3. Low-attenuation homogeneous left thyroid nodule measuring 4.5 cm. Mild mass effect upon the trachea. ACR White Paper guidelines (Denny LawsonK, et al. JACR 2015;12(2):143-50) suggest further evaluation with thyroid ultrasound. 4. Centrilobular emphysema. Electronically Signed: Broderick Allred DO at 21:07 EDT ,
--- NOTE | 2024-01-25 20:30 | EX.ED.GENINJ ---
HPI History of Present Illness Chief Complaint: Fall Detail of Chief Complaint: Fall with head injury Informant: patient Narrative Narrative: Patient presents to the emergency department after sustaining a fall. Patient states that she was using her walker going across a parking lot when she lost her balance and fell. Patient struck her head on the parking lot but denies loss of consciousness. She denies any neck pain out of the ordinary. Denies chest or abdomen pain. Patient is ANO x 3. Apparently does have some history of dementia. She tells me she is not on blood thinners. [facility] Medical History (Updated 01/25/24 @ 21:[address] Diana Rodriguez, DO) Osteoporosis Asthma Anxiety Hypertension Home Medications ?Medication ?Instructions ?Recorded ?Last Taken ?Type buspirone 7.5 mg tablet 7.5 mg PO BID 05/12/23 Unknown History cephalexin 500 mg capsule 500 mg PO Q12 #14 CAPSULES 05/12/23 Unknown Rx rosuvastatin 20 mg tablet 20 mg PO DAILY 05/12/23 Unknown History crglwap-avxudxpjulcak-sybpayzd 250 1 tab PO Q6H PRN pain 01/25/24 Unknown History mg-250 mg-65 mg tablet (Excedrin Extra Strength) Allergy/AdvReac Type Severity Reaction Status Date / Time lidocaine Allergy Itching Verified 01/25/24 20:08 Sulfa (Sulfonamide Allergy Rash Verified 01/25/24 20:08 Antibiotics) Surgical History History of total left hip replacement Social History household members: none and other details: Significant other sleeps on couch some days. Smoking Status: Never smoker alcohol intake: never substance use type: does not use ROS ROS ED Review of Systems ROS Unobtainable: other Constitutional Constitutional ED: Reports lethargy; Denies chills, fever(s), sweats or weight loss Eyes Eyes: Denies blurry vision, change in vision or diplopia ENT ENT ED: Denies rhinorrhea or sore throat Cardiovascular Cardiovascular: Denies chest pain, orthopnea or racing heartbeat Respiratory/Chest Respiratory/Chest: Denies cough, dyspnea, dyspnea on exertion, orthopnea or sputum Gastrointestinal Gastrointestinal: Denies abdominal pain, diarrhea, nausea or vomiting Genitourinary Genitourinary ED: Denies dysuria, hematuria or urinary frequency Musculoskeletal Musculoskeletal: Denies arthralgias, back pain, myalgias or neck pain Integumentary Denies abscess, Abrasions or rash Neurologic Neurologic: Reports headache(s); Denies weakness Psychiatric Psychiatric: Denies anxiety, depression or suicidal thoughts Endocrine Endocrinology: Denies polydipsia, polyphagia or polyuria Hematologic/Lymphatic Hematologic/Lymphatic: Denies easy bleeding, easy bruising or lymphadenopathy Allergic/Immunologic Allergic/Immunologic ED: Denies mouth swelling, tongue swelling or urticaria EXAM Physical Exam Const Vital Signs: 01/25/24 20:07 01/25/24 20:28 Temperature 98.1 F Temperature Source Oral Pulse Rate 94 Respiratory Rate 16 Respiratory Effort Normal Blood Pressure 161/84 H Blood Pressure Mean 109 Pulse Ox 93 Oxygen Delivery Method Room Air Room Air Positive well nourished and well developed General Appearance ED: well developed and NAD HEENT Reports TM's clear and moist mucous membranes HEENT Narrative: No external evidence of trauma to her head. normocephalic and atraumatic; Negative for trauma or tenderness Tympanic Membrane ED: Yes TM's clear Eyes PERRL and EOMs intact bilaterally General Eye ED: Negative for pale conjunctiva or scleral icterus Neck no lymphadenopathy, supple and no JVD Neck Narrative: Mild diffuse tenderness. No bony step-offs or depressions. General: tenderness Chest Wall inspection of chest normal and palpation of chest normal Chest: Negative for tenderness Resp normal respiratory effort and clear to auscultation bilaterally Effort and Inspection: Negative for respiratory distress or pain with movement Auscultation: Negative for rhonchi, wheezes or diminished lung sounds Cardio regular rate, regular rhythm, S1 normal heart sound, S2 normal heart sound and no murmurs Peripheral Pulses: pulses 2+ throughout GI normal to inspection, nondistended, normoactive bowel sounds, soft to palpation, non-tender, non-distended and no masses Back/Spine no CVA tenderness and no thoracic nor lumbar tenderness Extremity normal to inspection General Extremety ED: Negative for edema General Extremity: Negative for edema Neuro oriented x3, CN's II-XII intact bilaterally, no sensory deficits noted and gait normal Sensorium / Orientation: awake, alert, oriented to person, oriented to place and oriented to time Motor Exam: strength 5/5 throughout and strength abnormal Psych mental status grossly normal Skin no rashes or lesions noted and no wounds MDM MDM MDM Narrative Medical decision making narrative: Patient presents to the emergency department after mechanical fall. She states that she struck her head. Not on blood thinners. She states she lost her balance while using her walker. She fell in the driveway. Clinically looks well. She is ANO x 3. No external evidence of trauma to her head. Patient has CT of the brain without contrast that was unremarkable. She had a CT scan of the cervical spine that showed no fractures but incidentally noted that she has a nodule on her left side of thyroid gland. Nodule measures 4.5 cm. I described this to the patient and recommended she have outpatient ultrasound follow-up for this with Dr. Monroy. Patient and her significant other agree and understand. Patient had x-rays of the chest as well as the pelvis which were unremarkable for fractures. Lab Data Attestation: I reviewed the patient's lab results. Radiography Diagnostic Testing: Clinical Impression(s) from Imaging Studies Brain CT 01/25/24 20:29 IMPRESSION: 1. No CT evidence of acute intracranial pathology. Chronic microvascular ischemic changes. 2. No CT evidence of acute cervical spine injury. Multilevel degenerative changes. 3. Low-attenuation homogeneous left thyroid nodule measuring 4.5 cm. Mild mass effect upon the trachea. ACR White Paper guidelines (Baldwin JK, et al. JACR 2015;12(2):143-50) suggest further evaluation with thyroid ultrasound. 4. Centrilobular emphysema. Electronically Signed: Broderick Allred DO at 21:08 EDT , Cervical Spine CT 01/25/24 20:29 IMPRESSION: 1. No CT evidence of acute intracranial pathology. Chronic microvascular ischemic changes. 2. No CT evidence of acute cervical spine injury. Multilevel degenerative changes. 3. Low-attenuation homogeneous left thyroid nodule measuring 4.5 cm. Mild mass effect upon the trachea. ACR White Paper guidelines (Baldwin JK, et al. JACR 2015;12(2):143-50) suggest further evaluation with thyroid ultrasound. 4. Centrilobular emphysema. Electronically Signed: Broderick Allred DO at 21:07 EDT , Pelvis X-Ray 01/25/24 20:29 IMPRESSION: 1. Status post right hip arthroplasty with similar appearance to the prior examination. 2. Severe degenerative changes of the left hip with similar appearance to the prior examination. No acute fracture of the left hip. 3. No additional acute pathology. Electronically Signed: Broderick Allred DO at 21:18 EDT , Chest X-Ray 01/25/24 20:57 IMPRESSION: No acute findings in the chest. Electronically Signed: Broderick Allred DO at 21:17 EDT , 1 view chest x-ray obtained interpreted by myself as no evidence of pneumothorax or rib fracture or acute disease process. Radiology in agreement. 1 view x-ray of pelvis obtained interpreted by myself as degenerative changes without evidence of fracture or dislocation. She is noted to be status post right hip arthroplasty. Radiology in agreement. Discharge Plan Triage Chief Complaint: Fall ED Provider: Diana Rodriguez Dx/Rx/DC Orders Clinical Impression: Fall, Closed head injury Instructions: ED Mechanical Fall, ED Head Injury (Adult) Prescriptions: No Action buspirone 7.5 mg tablet 7.5 mg PO BID Patient Comments: take 1 tablet by mouth twice a day rosuvastatin 20 mg tablet 20 mg PO DAILY Patient Comments: take 1 tablet by mouth once daily cephalexin [cephalexin] 500 mg capsule 500 mg PO Q12 Qty: 14 0RF Excedrin Extra Strength 250-250-65 mg tablet 1 tab PO Q6H PRN (Reason: pain) Primary Care Provider: Josh Monroy Referrals: Josh Monroy MD [Primary Care Provider] - Mauricio Maloney DPM [Med Staff - Active Staff] - 3-5 Days Activity Restrictions/Additional Instructions: Follow-up with your family doctor to have outpatient ultrasound of your thyroid gland to evaluate for a nodule on the left side of your thyroid gland. Print Language: [place] Disposition Disposition: Home, Self Care
--- NOTE | 2024-01-25 20:57 | RAD_ITS ---
EXAM: XR CHEST, 1 VIEW CLINICAL INDICATION: fall pain TECHNIQUE: Frontal view of the chest. COMPARISON: 05/11/2023 FINDINGS: LUNGS AND PLEURAL SPACES: No significant abnormality. No consolidation or edema. No pneumothorax. No effusion. HEART: No significant abnormality. Cardiac silhouette not enlarged. MEDIASTINUM: Central airways and mediastinal contour are unremarkable. BONES/JOINTS: Degenerative changes and apex left curvature in the spine. No acute fracture. SOFT TISSUES: No significant abnormality. VASCULATURE: Atherosclerosis. UPPER ABDOMEN: Eventration of the right hemidiaphragm. RAD/Chest 1 View IMPRESSION: No acute findings in the chest. Electronically Signed: Broderick Allred DO at 21:17 EDT ,
== END 2024-01-25 23:09 | disposition home or self-care (01) ==
PROVIDERS: Emergency Provider Emergency Medicine; PCP Family Medicine; Visit Provider Emergency Medicine
DX: S09.90XA Unspecified injury of head, initial encounter (principal); F03.90 Unspecified dementia, unspecified severity, without behavioral disturbance, psychotic disturbance, mood disturbance, and anxiety; I10 Essential (primary) hypertension; Z79.82 Long term (current) use of aspirin; Z79.899 Other long term (current) drug therapy; W19.XXXA Unspecified fall, initial encounter; Y92.481 Parking lot as the place of occurrence of the external cause
CPT/HCPCS: 70450; 71045; 72125; 72170; 99283

== ENCOUNTER 2024-10-13 10:01 | Observation (INO) | payer MEDICARE, MEDICAID, SELFPAY ==
[2024-10-13 10:02] VITALS: BP 161/73; PULSE 75; RESP 18; TEMP 36.6; O2SAT 97; BMI 43.0
--- NOTE | 2024-10-13 10:06 | ED.VIS.FALL ---
HPI HPI - Fall History of Present Illness Chief Complaint: Fall Informant: patient Occured/Mechanism Occurred: Month(s) Pain/Injury Pain Location: lower extremity (Left hip and left knee) Quality of Pain: Aching Worsened by: Weightbearing, movement Relieved by: Rest Associated Symptoms Associated Symptoms: Positive for Inability to ambulate; Negative for Parasthesias, Loss of function, Loss of consciousness or Amnesia Narrative Narrative: Patient presents with pain in her left knee and left hip that has been getting worse over the past year. Patient was unable to get up off the couch today. Patient denies any falls or trauma. Patient states her pain is worse with any movement or weightbearing. Patient denies any paresthesias. Patient denies any head injury or loss of consciousness. Patient also complains of some mild pain in her right knee. [facility] Medical History Osteoporosis Asthma Anxiety Hypertension Home Medications ?Medication ?Instructions ?Recorded ?Last Taken ?Type rosuvastatin 20 mg tablet 20 mg PO DAILY 05/12/23 Unknown History acetaminophen 500 mg capsule 1,500 mg PO BID 10/13/24 Unknown History buspirone 10 mg tablet 10 mg PO BID 10/13/24 Unknown History Allergy/AdvReac Type Severity Reaction Status Date / Time lidocaine Allergy Itching Verified 10/13/24 10:02 Sulfa (Sulfonamide Allergy Rash Verified 10/13/24 10:02 Antibiotics) Surgical History History of total left hip replacement Social History household members: none and other details: Significant other sleeps on couch some days. Smoking Status: Never smoker alcohol intake: never substance use type: does not use ROS ROS ED Constitutional Constitutional ED: Denies chills or fever(s) Eyes Eyes: Denies blurry vision or change in vision ENT ENT ED: Denies rhinorrhea or sore throat Cardiovascular Cardiovascular: Denies chest pain or palpitations Respiratory/Chest Respiratory/Chest: Denies cough or dyspnea Gastrointestinal Gastrointestinal: Denies nausea or vomiting Genitourinary Genitourinary ED: Denies dysuria or hematuria Musculoskeletal Musculoskeletal: Denies back pain or neck pain Integumentary Denies abscess or rash Neurologic Neurologic: Reports headache(s); Denies weakness Allergic/Immunologic Allergic/Immunologic ED: Denies mouth swelling or urticaria EXAM Physical Exam Const Vital Signs: 10/13/24 10:02 10/13/24 10:07 10/13/24 12:02 Temperature 97.8 F Temperature Source Oral Pulse Rate 75 64 Respiratory Rate 18 18 Respiratory Effort Normal Respiratory Depth Normal Respiratory Pattern Normal Blood Pressure 161/73 H 143/78 H Blood Pressure Mean 102 99 Pulse Ox 97 98 Oxygen Delivery Method Room Air Room Air Room Air 10/13/24 13:33 Temperature 97.8 F Temperature Source Pulse Rate 64 Respiratory Rate 18 Respiratory Effort Respiratory Depth Respiratory Pattern Blood Pressure 143/78 H Blood Pressure Mean 99 Pulse Ox 98 Oxygen Delivery Method Positive well nourished and well developed Constitutional Narrative: BMI is 43.1 General Appearance ED: well developed and NAD HEENT Reports normocephalic atraumatic Neck full ROM and supple Resp normal respiratory effort and clear to auscultation bilaterally Cardio regular rate and regular rhythm GI non-tender and non-distended Palpation: soft Extremity Extremity Narrative: There is tenderness over the medial aspect of the left knee and proximal tibia. There is no deformity noted. Range of motion was limited in all motions of the left knee secondary to pain. There is also tenderness over the anterior and lateral aspect of the left hip. There is no deformity. There is no shortening or external rotation. Pedal pulses are equal bilaterally. Sensation was intact to light touch in all digits. Capillary refill was less than 2 seconds in all digits. Neuro CN's II-XII intact bilaterally, moves all extremities, no focal motor deficits and no sensory deficits noted Sensorium / Orientation: alert Psych mental status grossly normal MDM MDM MDM Narrative Medical decision making narrative: Differential diagnosis includes fracture, sprain, contusion, debility, general weakness, dehydration, and electrolyte abnormality. X-rays of the left hip will be obtained to assess for fracture and dislocation. X-rays of the left knee will be obtained to assess for fracture. CBC will be obtained to assess for leukocytosis and anemia. Basic metabolic profile will be obtained to assess for dehydration and electrolyte abnormality. Urinalysis will be obtained to assess for urinary tract infection. History & Record Review Additional record(s) reviewed:: Prior ED visit and Prior labs Lab Data Attestation: I reviewed the patient's lab results. Lab results narrative: CBC was reviewed and was within normal limits. Basic metabolic profile was reviewed and was essentially within normal limits. Urinalysis was reviewed. Leukocyte esterase was 100. There are 5-10 white blood cells but there are 10-25 epithelial cells. There is 3+ bacteria. Labs: Laboratory Results - last 24 hr 10/13/24 10/13/24 10:27 11:31 WBC 6.6 RBC 4.82 Hgb 13.7 Hct 42.2 MCV 87.6 MCH 28.4 MCHC 32.5 RDW Std Deviation 45.8 H RDW Coeff of Vitaliy 14.4 Plt Count 199 MPV 10.6 Immature Gran % (Auto) 0.300 Neut % (Auto) 76.8 H Lymph % (Auto) 13.1 L [place] % (Auto) 7.0 Eos % (Auto) 2.3 Baso % (Auto) 0.5 Absolute Neuts (auto) 5.0 Absolute Lymphs (auto) 0.86 Nucleated RBC % 0 Sodium 141 Potassium 4.4 Chloride 108 Carbon Dioxide 22.9 Anion Gap 10 BUN 26 H Creatinine 0.61 L Estim Creat Clear Calc 76.93 Est GFR (MDRD) Non-Af 90 BUN/Creatinine Ratio 42.0 H Glucose 112 H Calcium 9.4 Urine Color Yellow Urine Clarity Sl. Cloudy Urine pH 5.0 Ur Specific [place] 1.025 Urine Protein 30 H Urine Glucose (UA) Normal Urine Ketones Negative Urine Occult Blood 10 H Urine Nitrite Positive H Urine Bilirubin Negative Urine Urobilinogen Normal Ur Leukocyte Esterase 100 H Urine RBC 0-5 SEEN Urine WBC 5-10 SEEN Ur Squamous Epith Cells 10-25 SEEN Urine Bacteria 3+ Urine Mucus 0 SEEN Radiography Diagnostic Testing: Clinical Impression(s) from Imaging Studies Hip/Pelvis X-Ray 10/13/24 10:50 IMPRESSION: 1. The patient is rotated. Assessment of the left pubic symphysis is suboptimal. Subtle fracture can not be entirely excluded. 2. Severe degenerative changes of the left hip joint. 3. Postoperative changes as above. Reading Location: [facility] Knee X-Ray 10/13/24 10:50 IMPRESSION: Severe tricompartmental degenerative change of the knee joint. Subtle fracture can not be excluded. Reading Location: [facility] X-rays of the left hip were obtained. There are 3 views. On my independent interpretation, there are some degenerative changes. There is no acute fracture. Radiologist also interpreted the x-rays and noted that the patient was rotated and that a subtle fracture is not entirely excluded. X-rays of the left knee were obtained. There are 4 views. On my independent interpretation, there is no acute fracture. There are degenerative changes noted. Radiologist also interpreted the x-rays and agrees. Treatment and Re-Evaluation Narrative: Patient was given IV fluids. Patient was advised of her findings. Patient was tried to ambulate here in the emergency department. Patient was able to take 3 steps but was unsteady on her feet. Patient was unable to walk any further even with a walker. Because of this, I contacted the hospitalist for admission. She was seen to evaluate the patient and will admit the patient to her service. Patient understood and was agreeable with the plan. All questions were answered. Discharge Plan Dx/Rx/DC Orders Clinical Impression: Debility, Osteoarthritis of left hip, BMI 40.0-44.9, adult, Inability to walk Disposition Disposition: Acute Care [facility] Discharge Date/Time: 10/13/24 14:15
[2024-10-13] MEDS: 0.9% Normal Saline (1000mL) 1,000 ML 1000 ML IV (10:31)
[2024-10-13 10:47] LABS: Absolute Lymphocyte Count 0.86 X10^3/uL (0.83-4.51); Basophil# 0.03 X10^3/uL; Basophil% 0.5 % (0-1); Eosinophil# 0.15 X10^3/uL; Eosinophils% 2.3 % (0-5); Hematocrit 42.2 % (37-47); Hemoglobin 13.7 g/dL (12.0-15.0); Lymphocyte # 0.86 X10^3/ul (0.83-4.51); Lymphocyte % 13.1 % (19-41); Mean Corp Hgb Conc 32.5 g/dL (32-36); Mean Corpuscular Hgb 28.4 pg (27.0-32.0); Mean Corpuscular Volume 87.6 fL (81-99); Mean Platelet Vol. 10.6 fl (6.2-12.0); Monocyte# 0.46 X10^3/uL; NRBC Flagged by Analyzer 0 % (0-5); Neutrophil # 5.03 X10^3/uL (2.7-7.7); Neutrophil % 76.8 % (47-70); Platelet Count 199 K/mm3 (150-450); RBC Distribution Width CV 14.4 % (11.6-14.6); RBC Distribution Width SD 45.8 fl (35.1-43.9); Red Blood Count 4.82 M/mm3 (4.2-5.4); White Blood Count 6.6 K/mm3 (4.4-11.0)
--- NOTE | 2024-10-13 10:50 | RAD_ITS ---
EXAM: XR Left Knee Complete, 4 or More Views CLINICAL INDICATION: INJURY/PAIN TECHNIQUE: Four or more views of the left knee. COMPARISON: No relevant prior studies available. FINDINGS: BONES/JOINTS: Severe tricompartmental degenerative change of the knee joint. Subtle fracture can not be excluded. No dislocation. SOFT TISSUES: Soft tissue swelling. RAD/Knee 4 or More Views IMPRESSION: Severe tricompartmental degenerative change of the knee joint. Subtle fracture can not be excluded. Reading Location: [facility]
--- NOTE | 2024-10-13 10:50 | RAD_ITS ---
EXAM: XR Left Hip With Pelvis When Performed, 2 or 3 Views CLINICAL INDICATION: INJURY/PAIN TECHNIQUE: Two or three views of the left hip with pelvis when performed. COMPARISON: No relevant prior studies available. FINDINGS: BONES/JOINTS: The patient is rotated. Assessment of the left pubic symphysis is suboptimal. Subtle fracture can not be entirely excluded. Severe degenerative changes of the left hip joint. Total right hip replacement. Intact hardware. Anatomic position. No dislocation. SOFT TISSUES: Unremarkable. RAD/HIP, UNI W/ Pelvis 2-3 Views IMPRESSION: 1. The patient is rotated. Assessment of the left pubic symphysis is suboptim al. Subtle fracture can not be entirely excluded. 2. Severe degenerative changes of the left hip joint. 3. Postoperative changes as above. Reading Location: [facility]
[2024-10-13 11:18] LABS: Anion Gap 10 (5-15); BUN 26 mg/dL (4-19); Calcium,Total 9.4 mg/dL (7.6-11.0); Carbon Dioxide 22.9 mmol/L (21.0-32.0); Chloride 108 mmol/L (98-108); Creatinine, Serum 0.61 mg/dL (0.70-1.20); EST Glomerular Filtration Rate 90 (>60); Estimated Creatinine Clearance 76.93 ml/min (50-250); Glucose 112 mg/dL (70-99); Potassium 4.4 mmol/L (3.3-5.1); Sodium Level 141 mmol/L (133-145)
[2024-10-13 11:38] LABS: Mucous, Urine 0 SEEN /hpf (<or=2+)
[2024-10-13 11:43] LABS: Color, Urine Yellow (Yellow); Glucose, Dipstick Normal (Normal); Ketone-Dipstick Negative (Negative); Leukocyte Esterase-Dipstick 100 /ul (Negative); Nitrite-Dipstick Positive (Negative); Occult Blood-Urine 10 /ul (Negative); Protein-Dipstick 30 mg/dl (Negative); Specific Gravity, Urine 1.025 (1.002-1.030); Urine Bilirubin Dipstick Negative (Negative); Urine Clarity Sl. Cloudy (Clear); Urine Urobilinogen Normal (Normal)
[2024-10-13 12:02] VITALS: BP 143/78; PULSE 64; RESP 18; O2SAT 98
[2024-10-13 12:12] LABS: Bacteria 3+ /hpf (None Seen); Red Blood Cells-Urine 0-5 SEEN /hpf (0-5); Squamous Epithelial Cells - UA 10-25 SEEN /hpf (5-10); White Blood Cells 5-10 SEEN /hpf (0-5)
[2024-10-13 13:33] VITALS: BP 143/78; PULSE 64; RESP 18; TEMP 36.6; O2SAT 98
--- NOTE | 2024-10-13 13:41 | HP.PCM.HOS_ITS ---
HPI - General General Date of Admission: 10/13/24 Date of Service: 10/13/24 Chief Complaint: Weakness, knee and hip pain HPI Narrative MORRIS MUNOZ, is a 79-year-old female with history of anxiety and hyperlipidemia presented to [facility] 10/13/2024 because she was unable to get up off the couch today due to worsening pain in the left knee and left hip for the past year.? In the ED patient vitally stable and lab workup fairly benign.? UA with excess squamous epithelial cells suggesting this was not a clean-catch so difficult to interpret given current context.? Given patient's significant difficulty with ambulation hospitalist contacted for admission.? Patient evaluated at bedside.? With neighbor present, patient is an extremely poor historian and is very distractible and has a hard time answering questions directly, she speaks quickly and is very tangential.? Ask neighbor directly if this is her usual mental status and she said yes.? Patient has pain in her knees and in her left hip which is chronic and worsening, she said she has an orthopedic doctor but said she does not remember either of their names and that 1 told her today that he was on desk duty.? Patient does not necessarily note feeling generally weak however her neighbor said she seems that she has been weak, patient denied falling but it is documented that at some point someone voiced concern that maybe she had gone to her knees yesterday, today she was unable to get up off the couch due to being weak and worsening of her generalized pain prompting her to come in.? Patient said on Saturday she had a little bit of GI upset and episode of diarrhea with no vomiting, when trying to clarify if she was indeed referring to yesterday she would make tangential stories and would not answer the question directly. When asking about urinary symptoms patient kept saying she was told she had a urinary tract infection but had difficulty getting her to directly answer the question, eventually did report that she had had some burning on urination but cannot tell me for how long [facility] Medical History Osteoporosis Asthma Anxiety Hypertension Home Medications ?Medication ?Instructions ?Recorded ?Last Taken ?Type rosuvastatin 20 mg tablet 20 mg PO DAILY 05/12/23 Unkn own History acetaminophen 500 mg capsule 1,500 mg PO BID 10/13/24 Unknown History buspirone 10 mg tablet 10 mg PO BID 10/13/24 Unknow n History Allergy/AdvReac Type Severity Reaction Status Date / Time lidocaine Allergy Itching Verified 10/13/24 10:02 Sulfa (Sulfonamide Allergy Rash Verified 10/13/24 10:02 Antibiotics) Surgical History History of total left hip replacement Social History household members: none and other details: Significant other sleeps on couch some days. Smoking Status: Never smoker alcohol intake: never substance use type: does not use ROS ROS Narrative Unable to obtain full ROS other than what is above due to patient's tangential nature and difficulty answering direct questions Vital Signs Vital Signs Vital Signs: 10/13/24 10:02 10/13/24 10:07 10/13/24 12:02 Temperature 97.8 F Temperature Source Oral Pulse Rate 75 64 Respiratory Rate 18 18 Respiratory Effort Normal Respiratory Depth Normal Respiratory Pattern Normal Blood Pressure 161/73 H 143/78 H Blood Pressure Mean 102 99 Pulse Ox 97 98 Oxygen Delivery Method Room Air Room Air Room Air 10/13/24 13:33 Temperature 97.8 F Temperature Source Pulse Rate 64 Respiratory Rate 18 Respiratory Effort Respiratory Depth Respiratory Pattern Blood Pressure 143/78 H Blood Pressure Mean 99 Pulse Ox 98 Oxygen Delivery Method Weight Weight: 124.8 kg Body Mass Index (BMI) 43.0 Physical Exam Narrative General: Alert, no acute distress, patient unable to answer most questions directly and speaks tangentially and almost has flight of ideas HEENT: Atraumatic, normocephalic Eyes: Anicteric, normal conjunctiva, extraocular movements grossly intact Neck: Supple Respiratory: Clear to auscultation bilaterally, normal respiratory effort Cardiovascular: Regular rate and rhythm GI: Soft, nontender, nondistended Extremities: No pitting edema, no pain on palpation of knees Musculoskeletal: Moving all extremities however has difficulty lifting right leg completely off of bed but cannot tell me if this is due to pain or weakness, is able to lift hold left leg off of bed against gravity Neuro: No overt focal neurological deficits Skin: No rashes appreciated Psych: Cooperative but tangential and difficulty answering questions Results Lab / Micro Data 10/13/24 10:27 10/13/24 10:27 Labs: Laboratory Results - last 24 hr 10/13/24 10:27: WBC 6.6, RBC 4.82, Hgb 13.7, Hct 42.2, MCV 87.6, MCH 28.4, MCHC 32.5, RDW Std Deviation 45.8 H, RDW Coeff of Vitaliy 14.4, Plt Count 199, MPV 10.6, Immature Gran % (Auto) 0.300, Neut % (Auto) 76.8 H, Lymph % (Auto) 13.1 L, Green % (Auto) 7.0, Eos % (Auto) 2.3, Baso % (Auto) 0.5, Absolute Neuts (auto) 5.0, Absolute Lymphs (auto) 0.86, Nucleated RBC % 0, Sodium 141, Potassium 4.4, Chloride 108, Carbon Dioxide 22.9, Anion Gap 10, BUN 26 H, Creatinine 0.61 L, Estim Creat Clear Calc 76.93, Est GFR (MDRD) Non-Af 90, BUN/Creatinine Ratio 42.0 H, Glucose 112 H, Calcium 9.4 10/13/24 11:31: Urine Color Yellow, Urine Clarity Sl. Cloudy, Urine pH 5.0, Ur Specific Cath[place] 1.025, Urine Protein 30 H, Urine Glucose (UA) Normal, Urine Ketones Negative, Urine Occult Blood 10 H, Urine Nitrite Positive H, Urine Bilirubin Negative, Urine Urobilinogen Normal, Ur Leukocyte Esterase 100 H, Urine RBC 0-5 SEEN, Urine WBC 5-10 SEEN, Ur Squamous Epith Cells 10-25 SEEN, Urine Bacteria 3+, Urine Mucus 0 SEEN Imaging Radiology Impression Hip/Pelvis X-Ray 10/13/24 10:50 IMPRESSION: 1. The patient is rotated. Assessment of the left pubic symphysis is suboptimal. Subtle fracture can not be entirely excluded. 2. Severe degenerative changes of the left hip joint. 3. Postoperative changes as above. Reading Location: [facility] Knee X-Ray 10/13/24 10:50 IMPRESSION: Severe tricompartmental degenerative change of the knee joint. Subtle fracture can not be excluded. Reading Location: [facility] Assessment & Plan Assessment/Plan (1) Debility: PLAN: Plan # Generalized weakness on top of debility and knee and left hip pain - Patient is a very poor historian but did confirm long-term problems with her left knee and hip without new acute injury (though other documentation says she may have gone down to her knees yesterday) - Neighbor also notes generalized weakness recently but cannot give more about timeline - Left knee x-ray and left hip x-ray with no overt fracture appreciated but does have degenerative disease - Will schedule Tylenol - Topical agents - PT OT - Pain control # Abnormal UA - Does have elevated squamous epithelial cells so difficult to interpret however patient is generally weak and has had some burning on urination - Will treat with Rocephin and obtain urine culture, if negative can de-escalate antibiotics # Tangential and almost pressured speech - Patient tangential, at times almost seems flight of ideas and has almost pressured speech - Neighbor said she is at her baseline mental status - Reportedly patient lives alone - Case management consult - Will check thyroid, B12, UDS - Treat with Rocephin as above in the event there is component of UTI - Patient did note she previous was on a memory medicine through [employer] but is not reorder this and has been out #Morbid obesity -BMI documented as 43.1 anxiety kg/m? at time of admission -Complicates treatment, prognosis, outcomes -Recommend weight loss and lifestyle changes # Anxiety -Continue BuSpar # Hyperlipidemia -Continue Crestor #DVT ppx: Lovenox SQ twice daily Tarsha Wilkinson MD Time spent in the patient's overall evaluation, decision-making process, review of diagnostic data, adjustment of management, discussion with other providers, nursing and ancillary staff involved in patient's care documentation, 57 Minutes Charges/Coding Visit Charges Inpatient E&M: 94085 Init Hosp L2
[2024-10-13 14:30] VITALS: PULSE 70; RESP 18; O2SAT 96; BMI 42.8
--- NOTE | 2024-10-13 15:38 | NURSING ---
spoke w/ lab staff re:pt has urine cx and drug screen ordered also do they have enough urine to run those tests, they will check and call back
[2024-10-13] MEDS: Acetaminophen 500 MG Tablet 1000 MG PO ×2 (15:50→21:58)
[2024-10-13] MEDS: Ceftriaxone 1 GM/50 ML BAG IV (15:51)
[2024-10-13 16:00] VITALS: BP 150/88; PULSE 78; RESP 18; TEMP 36.6; O2SAT 95
[2024-10-13 16:46] LABS: Vitamin B12 362 pg/mL (180-914)
[2024-10-13 21:49] VITALS: BP 131/53; PULSE 70; RESP 18; TEMP 36.6; O2SAT 97
[2024-10-13] MEDS: Arthritis Pain Compound 60 CLICK TUBE TOPICAL (21:56)
[2024-10-13] MEDS: Nystatin Powder 15gm Bottle 1 APPLIC TOPICAL (21:57)
[2024-10-13] MEDS: Enoxaparin 40 MG/0.4 ML Syringe SC (21:57)
[2024-10-13] MEDS: busPIRone 5 MG Tablet 10 MG PO (21:58)
[2024-10-13] MEDS: Menthol/Lanolin/Calamine/Znox 113 GM Tube 1 APPLIC TOPICAL (21:58)
[2024-10-14 03:13] VITALS: BP 112/48; PULSE 67; RESP 18; TEMP 36.5; O2SAT 98
[2024-10-14 06:55] LABS: Absolute Lymphocyte Count 1.11 X10^3/uL (0.83-4.51); Absolute Neutrophil Count 3.8 X10^3/uL (2.0-7.7); Basophil# 0.04 X10^3/uL; Basophil% 0.7 % (0-1); Eosinophil# 0.19 X10^3/uL; Eosinophils% 3.4 % (0-5); Hemoglobin 11.6 g/dL (12.0-15.0); Lymphocyte # 1.11 X10^3/ul (0.83-4.51); Mean Corp Hgb Conc 31.4 g/dL (32-36); Mean Corpuscular Hgb 28.2 pg (27.0-32.0); Mean Platelet Vol. 10.7 fl (6.2-12.0); Monocyte# 0.36 X10^3/uL; Monocyte% 6.5 % (0-10); NRBC Flagged by Analyzer 0 % (0-5); Neutrophil # 3.82 X10^3/uL (2.7-7.7); Neutrophil % 68.9 % (47-70); Platelet Count 170 K/mm3 (150-450); RBC Distribution Width CV 14.2 % (11.6-14.6); RBC Distribution Width SD 46.8 fl (35.1-43.9); Red Blood Count 4.11 M/mm3 (4.2-5.4); White Blood Count 5.6 K/mm3 (4.4-11.0)
[2024-10-14] MEDS: Nystatin Powder 15gm Bottle 1 APPLIC TOPICAL ×3 (06:56→21:20)
[2024-10-14] MEDS: Acetaminophen 500 MG Tablet 1000 MG PO ×3 (06:57→21:21)
[2024-10-14 07:35] LABS: Anion Gap 9 (5-15); BUN 21 mg/dL (4-19); BUN/Creat Ratio 42.7 RATIO (10-20); Calcium,Total 8.4 mg/dL (7.6-11.0); Carbon Dioxide 20.1 mmol/L (21.0-32.0); Chloride 110 mmol/L (98-108); Creatinine, Serum 0.49 mg/dL (0.70-1.20); EST Glomerular Filtration Rate 95 (>60); Estimated Creatinine Clearance 74.18 ml/min (50-250); Glucose 88 mg/dL (70-99); Potassium 3.8 mmol/L (3.3-5.1); Sodium Level 140 mmol/L (133-145)
[2024-10-14 10:03] VITALS: BP 124/58; PULSE 76; RESP 18; TEMP 36.3; O2SAT 96
[2024-10-14] MEDS: Arthritis Pain Compound 60 CLICK TUBE TOPICAL ×2 (10:07→21:19)
[2024-10-14] MEDS: Ceftriaxone 1 GM/50 ML BAG IV (10:08)
[2024-10-14] MEDS: Atorvastatin Calcium 40 MG Tablet PO (10:08)
[2024-10-14] MEDS: Enoxaparin 40 MG/0.4 ML Syringe SC ×2 (10:08→21:20)
[2024-10-14] MEDS: Menthol/Lanolin/Calamine/Znox 113 GM Tube 1 APPLIC TOPICAL ×2 (10:08→21:20)
[2024-10-14] MEDS: busPIRone 5 MG Tablet 10 MG PO ×2 (10:08→21:19)
--- NOTE | 2024-10-14 13:42 | CASEMGMT ---
Discharge Planning A list of?SNF providers including quality and resource use data and consistent with the patient's preferred geographic region, medical needs, and insurance network was created in [employer] Guide.? This list was provided to the SW. Cintia Travis Discharge Planning Asst.
--- NOTE | 2024-10-14 14:55 | CASEMGMT ---
Met with patient to complete CASTELLANO form. CASTELLANO form explained to patient who voiced understanding and signed form. Original form placed in pt?s chart and copy provided to patient. Cintia Travis, Discharge Planning A
[2024-10-14 15:00] VITALS: BP 114/61; PULSE 79; RESP 18; TEMP 36.2; O2SAT 96
--- NOTE | 2024-10-14 15:00 | CASEMGMT ---
Reviewed therapy notes, MARIBEL CROUCH into pt room, pt sitting up in chair. Pt aware of where she is, the year and the president. Pt states she lives alone but has Mervin her sig other in another apt close by. Pt states she bathes and dresses herself. Mervin does her meals, laundry and her neighbor Azeb does her grocery shopping. Pt states she has a license but no car and Mervin provides transportation. Pt states she does not have any steps to enter her home. She has 2 walkers and a shower chair. Pt states that she saw Dr.Widmer fuentes and he wanted her to come to the hospital to have therapy prior to doing hip surgery. Pt is under the impression that he is going to do surgery this hospital stay. Discussed with patient her therapy eval and the recommendation for further therapy. Pt states she would like to do therapy at home as it costs less. Discussed with pt that it is taking 2 people to assist her currently. She states she has Mervin to care for her. Asked if this RN CM could call Mervin to discuss and she states he will not be able to understand as he had a train accident in 1968 which he hit his head. Per pt nurse, Mervin visited and also uses a walker. Pt states she has been to [facility] in the past as well as [facility] for therapy. Pt states she would most likely be interested in [facility] as this is where Mervin has gone and she is from that area. Her second choice would be [facility]. Pt is not willing to commit to this answer as she wants to think about it. Updated SW. Pt nurse and SENIOR COURT OFFICE ASSISTANT in room at end of conversation who also confirmed pt is a two assist getting back to bed. TC to Dr. Monroy's office, left message on clinical clinic assistant line to see if pt had recent appt and the findings at this appt.
--- NOTE | 2024-10-14 17:34 | CASEMGMT ---
Social Work- SW received notice from physician that pt would like referral to [facility]. SW notified DCA. YOVANI remains available to follow. SHERIF Arias
--- NOTE | 2024-10-14 18:30 | PN.HOSP_ITS ---
Reason for Visit Reason for Visit: Diagnoses Other malaise (10/13/24) Subjective Subjective Patient was seen and examined today, she was placed in observation status yesterday due to generalized weakness at home, there is a question she may also have cystitis. However, there were low numbers of gram-negative rods in the urine culture. Patient tells this examiner she would like to go to [facility]. Objective Data Objective Data Vital Signs: Vital Signs Temp Pulse Resp BP Pulse Ox O2 Del Method 97.1 F L 79 18 114/61 96 Room Air 10/14/24 15:00 10/14/24 15:00 10/14/24 15:00 10/14/24 15:00 10/14/24 15:00 10/14/24 15:00 Oxygen Delivery Method Room Air Weight: 120.5 kg Body Mass Index (BMI) 42.8 Intake & Output: Intake and Output for Last 24 Hours 10/12/24 10/13/24 10/14/24 23:59 23:59 23:59 Intake Total 1350 / 1350 550 / 550 Output Total 200 / 200 600 / 600 Balance 1150 / 1150 -50 / -50 Lab / Micro Data 10/14/24 06:30 10/14/24 06:30 Labs: Laboratory Results - last 24 hr 10/14/24 06:30: WBC 5.6, RBC 4.11 L, Hgb 11.6 L, Hct 37.0, MCV 90.0, MCH 28.2, M CHC 31.4 L, RDW Std Deviation 46.8 H, RDW Coeff of Vitaliy 14.2, Plt Count 170, MPV 10.7, Immature Gran % (Auto) 0.500, Neut % (Auto) 68.9, Lymph % (Auto) 20.0, Centre % (Auto) 6.5, Eos % (Auto) 3.4, Baso % (Auto) 0.7, Absolute Neuts (auto) 3.8, Absolute Lymphs (auto) 1.11, Nucleated RBC % 0, Sodium 140, Potassium 3.8, Chloride 110 H, Carbon Dioxide 20.1 L, Anion Gap 9, BUN 21 H, Creatinine 0.49 L, Estim Creat Clear Calc 74.18, Est GFR (MDRD) Non-Af 95, BUN/Creatinine Ratio 42.7 H, Glucose 88, Calcium 8.4, TSH 1.490 Micro: Microbiology 10/13/24 11:31 Urine, Random Urine Culture - Preliminary Gram negative adriana Physical Exam Const alert, oriented x3 and no apparent distress Constitutional Narrative: Patient appears older than her stated age, she has class III obesity General Appearance: cooperative, well kempt and well developed Orientation / Consciousness: awake, oriented to person, oriented to place and oriented to time HEENT normocephalic, head/scalp atraumatic and moist oral mucous membranes HEENT Narrative: Patient has poor dental care Eyes PERRL, EOMs intact bilaterally and conjunctivae normal Neck supple, no JVD, thyroid normal and no carotid bruits General: trachea midline Resp normal respiratory effort, no retractions, no use of accessory muscles and clear to auscultation bilaterally Auscultation: Negative for rales, rhonchi or wheezes Cardio regular rate, regular rhythm, S1 normal heart sound, S2 normal heart sound, no murmurs, no rub and no gallops GI normal to inspection, nondistended, normoactive bowel sounds, soft to palpation, non-tender and non-distended Extremity no clubbing, cyanosis or edema Skin no rashes or lesions noted General Skin Exam: no breakdown Neuro oriented x3, CN's II-XII intact bilaterally, moves all extremities, no focal motor deficits and no sensory deficits noted Sensorium / Orientation: awake and alert Speech: speech normal Psych affect normal Assessment & Plan Assessment/Plan (1) Debility: PLAN: Plan 1. Acute on chronic debility secondary to osteoarthritis-PT and OT are seeing the patient, she will need temporary placement in a residential facility for inpatient rehab services #2 bacteriuria-I am unsure whether the patient actually has cystitis at this time, I have elected to continue her on antibiotics for now #3 hyperlipidemia-patient is on a statin at home #4 osteoarthritis-complicates care, management, recovery, and prognosis Total clinical time spent by myself addressing the patient's medical issues, reviewing all of her data, and collaborating with patient's care team: 35 minutes Charges/Coding Visit Charges Inpatient E&M: 00482 Subs Hosp L2
[2024-10-14 21:15] VITALS: BP 124/94; PULSE 68; RESP 18; TEMP 36.6; O2SAT 97
[2024-10-15 04:33] VITALS: BP 143/67; PULSE 69; RESP 18; TEMP 36.4; O2SAT 98
[2024-10-15] MEDS: Acetaminophen 500 MG Tablet 1000 MG PO ×3 (06:37→20:43)
[2024-10-15] MEDS: Nystatin Powder 15gm Bottle 1 APPLIC TOPICAL ×3 (06:38→20:43)
[2024-10-15 08:02] VITALS: BP 135/71; PULSE 68; RESP 18; TEMP 36.4; O2SAT 97
[2024-10-15] MEDS: Enoxaparin 40 MG/0.4 ML Syringe SC ×2 (08:08→20:44)
[2024-10-15] MEDS: Arthritis Pain Compound 60 CLICK TUBE TOPICAL ×2 (08:08→20:41)
[2024-10-15] MEDS: busPIRone 5 MG Tablet 10 MG PO ×2 (08:08→20:41)
[2024-10-15] MEDS: Atorvastatin Calcium 40 MG Tablet PO (08:09)
[2024-10-15] MEDS: Menthol/Lanolin/Calamine/Znox 113 GM Tube 1 APPLIC TOPICAL ×2 (08:09→20:42)
--- NOTE | 2024-10-15 08:16 | CASEMGMT ---
Addendum entered by Cintia Travis 10/15/24 10:40: [facility]. SW updated. Cintia Travis DC Planning Asst. Original Note: Discharge Planning Referral sent to [facility]. Cintia Travis DC Planning Asst.
[2024-10-15] MEDS: Ceftriaxone 1 GM/50 ML BAG IV (09:25)
--- NOTE | 2024-10-15 11:30 | CASEMGMT ---
Social Work SW met with pt and informed that [facility] has accepted. Pt stating that she does need to go for rehab and is agreeable for placement at [facility]. DC assisted updated and requested to have Precert started. Plan: [facility], pending precert SHERIF Parker
--- NOTE | 2024-10-15 11:34 | CASEMGMT ---
[facility] accepted and will submit for precert. Cintia Travis DC Planning Asst.
--- NOTE | 2024-10-15 15:02 | CHAPLAIN ---
Type of Pastoral Visit _x__ Initial Visit ___ Follow-up Visit ___ On-call Visit ___ General Patient Visit ___ Spiritual Assessment ___ Family Conference ___ Bereavement ___ Rapid Response ___ Code Blue ___ Other (describe below) Pastoral Care Referral From _x__ Patient ___ Family ___ Nurse ___ Physician ___ Ultrasonic Seaming Machine Operator ___ Design Cell Engineer ___ Other (describe below) Sacrament/Intervention _x__ Active listening ___ Anointing ___ Hindu ___ Bereavement ___ Communion _x__ Paulette exploration ___ _x__ Life review _x__ Prayer ___ Reconciliation ___ Sacrament of Sick _x__ Supportive presence ___ Wedding ___ Other (describe below) Pastoral Comments patient is talkative and eager to tell of her current health needs; pt is thankful to be able to walk today; pt speaks of her tenriism experiences and gets emotional about that; pt asks questions of this post partum nurse on spiritual experiences; pt may have some limits on her mental understanding of things as she talks in simple terms; pt asks for a Bible; pt welcomes presence and prayer for support
--- NOTE | 2024-10-15 17:13 | PN.HOSP_ITS ---
Reason for Visit Reason for Visit: Diagnoses Other malaise (10/13/24) Subjective Subjective Patient was seen and examined today, she appeared mildly confused but pleasant. Objective Data Objective Data Vital Signs: Vital Signs Temp Pulse Resp BP Pulse Ox O2 Del Method 97.6 F L 68 18 135/71 H 97 Room Air 10/15/24 08:02 10/15/24 08:02 10/15/24 08:02 10/15/24 08:02 10/15/24 08:02 10/15/24 08:04 Oxygen Delivery Method Room Air Weight: 120.5 kg Body Mass Index (BMI) 42.8 Intake & Output: Intake and Output for Last 24 Hours 10/13/24 10/14/24 10/15/24 23:59 23:59 23:59 Intake Total 1350 / 1350 550 / 550 650 / 650 Output Total 200 / 200 600 / 600 500 / 500 Balance 1150 / 1150 -50 / -50 150 / 150 Lab / Micro Data 10/14/24 06:30 10/14/24 06:30 Micro: Microbiology 10/13/24 11:31 Urine, Random Urine Culture - Final Escherichia coli Physical Exam Narrative alert, oriented x2 and no apparent distress Constitutional Narrative: Patient appears older than her stated age, she has class III obesity General Appearance: cooperative, well kempt and well developed Orientation / Consciousness: awake, oriented to person, oriented to place HEENT normocephalic, head/scalp atraumatic and moist oral mucous membranes HEENT Narrative: Patient has poor dental care Eyes PERRL, EOMs intact bilaterally and conjunctivae normal Neck supple, no JVD, thyroid normal and no carotid bruits General: trachea midline Resp normal respiratory effort, no retractions, no use of accessory muscles and clear to auscultation bilaterally Auscultation: Negative for rales, rhonchi or wheezes Cardio regular rate, regular rhythm, S1 normal heart sound, S2 normal heart sound, no murmurs, no rub and no gallops GI normal to inspection, nondistended, normoactive bowel sounds, soft to palpation, non-tender and non-distended Extremity no clubbing, cyanosis or edema Skin no rashes or lesions noted General Skin Exam: no breakdown Neuro oriented x2, CN's II-XII intact bilaterally, moves all extremities, no focal motor deficits and no sensory deficits noted Sensorium / Orientation: awake and alert Speech: speech normal Psych Patient is mildly confused, she was talking to herself when this examiner walked into the room. Assessment & Plan Assessment/Plan (1) Debility: PLAN: Plan 1. Acute on chronic debility secondary to osteoarthritis-PT and OT are seeing the patient, she will need temporary placement in a jail facility for inpatient rehab services #2 bacteriuria-patient has low numbers of E. coli which is sensitive to the antibiotics except for the quinolones, I will discontinue the Rocephin after today's dose #3 hyperlipidemia-patient is on a statin at home #4 osteoarthritis-complicates care, management, recovery, and prognosis Total clinical time spent by myself addressing the patient's medical issues, reviewing all of her data, and collaborating with patient's care team: 25 minutes Charges/Coding Visit Charges Inpatient E&M: [address] [facility] Hosp L1
[2024-10-15 20:40] VITALS: BP 134/38; PULSE 80; RESP 16; TEMP 36.4; O2SAT 96
[2024-10-16 05:46] VITALS: BP 113/67; PULSE 70; RESP 14; TEMP 36.2; O2SAT 96
[2024-10-16] MEDS: Acetaminophen 500 MG Tablet 1000 MG PO ×3 (06:01→20:43)
[2024-10-16] MEDS: Nystatin Powder 15gm Bottle 1 APPLIC TOPICAL ×3 (06:02→20:42)
[2024-10-16 07:56] LABS: Amphetamine Urine NEGATIVE (<1000 ng/mL); Barbiturate Urine NEGATIVE (< 200 ng/mL); Benzodiazepine Urine NEGATIVE (< 200 ng/mL); Buprenorphine Urine NEGATIVE (< 200 ng/mL); Cocaine Urine NEGATIVE (< 300 ng/mL); Fentanyl, Urine NEGATIVE; Methadone Urine NEGATIVE (< 300 ng/mL); Opiates Urine NEGATIVE (< 300 ng/mL); Oxycodone, Urine NEGATIVE (< 100 ng/mL); PCP Urine NEGATIVE (< 25 ng/mL); THC Urine NEGATIVE (< 50 ng/mL)
[2024-10-16] MEDS: Enoxaparin 40 MG/0.4 ML Syringe SC ×2 (09:10→20:42)
[2024-10-16] MEDS: Atorvastatin Calcium 40 MG Tablet PO (09:10)
[2024-10-16] MEDS: Arthritis Pain Compound 60 CLICK TUBE TOPICAL ×2 (09:10→20:43)
[2024-10-16] MEDS: busPIRone 5 MG Tablet 10 MG PO ×2 (09:10→20:41)
[2024-10-16] MEDS: Menthol/Lanolin/Calamine/Znox 113 GM Tube 1 APPLIC TOPICAL ×2 (09:11→20:42)
[2024-10-16] MEDS: Ceftriaxone 1 GM/50 ML BAG IV (09:13)
[2024-10-16] MEDS: 0.9% Saline Lock 10 ML Syringe IV (09:14)
[2024-10-16 09:27] VITALS: BP 155/61; PULSE 67; RESP 18; TEMP 37.1; O2SAT 96
--- NOTE | 2024-10-16 10:47 | CASEMGMT ---
Addendum entered by Raven Simons 10/16/24 11:35: Return call from [employer], and peer to peer now scheduled for 1300. YOVANI confirmed with [employer] that peer to peer deadline was 1250. [facility] confirmed that peer to peer can be scheduled up one hour after deadline. Physician notified. SHERIF Parker Original Note: Social Work Insurance intends to deny SNF stay. Peer to Peer offered. Physician notified and agreeable to complete Peer to Peer. YOVANI placed phone call to [employer] and set up Peer to Peer. [facility] physician to call Dr. Franks at 1230. Physician notified. SHERIF Parker
[2024-10-16 14:30] VITALS: BP 155/67; PULSE 68; RESP 18; TEMP 36.7; O2SAT 96
--- NOTE | 2024-10-16 15:27 | CASEMGMT ---
Social Work Per physician, peer to peer was completed and denial was upheld. Pt is not able to return home alone at this time due to limited functional status. SW notified [facility] and requested precert be initiated with pt secondary insurance [facility]. Precert started today. Phone call to [employer] Appeal line ([phone]) [facility] Expedited Appeal process started for skilled stay at SNF. Clinicals faxed ([phone]). Nesa states case will be reviewed within 24 hours, however [employer] is not open on the weekends. Physician and pt notified. Plan[facility], [facility] or [employer] SHERIF Parker
--- NOTE | 2024-10-16 15:58 | CASEMGMT ---
Social Work SW attempted to call pt's contact Mervin to notify of dc plan. No answer and no VM set up. SW inquired with pt if she would have other family to be contacted. Pt states she does not. Pt has no children, sibling is 98 and pt unable to identify if she has nieces or nephews. SW inquired who would be medical decision maker if she is unable. Pt states she has never thought of this. Possibly Mervin if he is able. At this time, SW does not feel pt is able to complete HCPOA due to cognition. SHERIF Parker
--- NOTE | 2024-10-16 19:45 | PCM.PN.HOSP ---
Reason for Visit Reason for Visit: Diagnoses Other malaise (10/13/24) Subjective Subjective Patient was seen and examined today, she states she feels better today and stronger. Her insurance has denied her transfer to an extended care facility for skilled services. I feel this should be appealed. Objective Data Objective Data Vital Signs: Vital Signs Temp Pulse Resp BP Pulse Ox O2 Del Method 98.1 F 68 18 155/67 H 96 Room Air 10/16/24 14:30 10/16/24 14:30 10/16/24 14:30 10/16/24 14:30 10/16/24 14:30 10/16/24 18:00 Oxygen Delivery Method Room Air Weight: 120.5 kg Body Mass Index (BMI) 42.8 Intake & Output: Intake and Output for Last 24 Hours 10/14/24 10/15/24 10/16/24 23:59 23:59 23:59 Intake Total 550 / 550 650 / 650 1600 / 1600 Output Total 600 / 600 500 / 500 2900 / 2900 Balance -50 / -50 150 / 150 -1300 / -1300 Lab / Micro Data 10/14/24 06:30 10/14/24 06:30 Labs: Laboratory Results - last 24 hr 10/16/24 05:19: Urine Opiates Screen NEGATIVE, U Buprenorphine Qual NEGATIVE, Ur Oxycodone Screen NEGATIVE, Urine Methadone Screen NEGATIVE, Urine Fentanyl Screen NEGATIVE, Ur Barbiturates Screen NEGATIVE, Ur Phencyclidine Scrn NEGATIVE, Ur Amphetamines Screen NEGATIVE, U Benzodiazepines Scrn NEGATIVE, Urine Cocaine Screen NEGATIVE, U Cannabinoids Screen NEGATIVE Micro: Microbiology 10/13/24 11:31 Urine, Random Urine Culture - Final Escherichia coli Physical Exam Narrative alert, oriented x2 and no apparent distress Constitutional Narrative: Patient appears older than her stated age, she has class III obesity General Appearance: cooperative, well kempt and well developed Orientation / Consciousness: awake, oriented to person, oriented to place HEENT normocephalic, head/scalp atraumatic and moist oral mucous membranes HEENT Narrative: Patient has poor dental care Eyes PERRL, EOMs intact bilaterally and conjunctivae normal Neck supple, no JVD, thyroid normal and no carotid bruits General: trachea midline Resp normal respiratory effort, no retractions, no use of accessory muscles and clear to auscultation bilaterally Auscultation: Negative for rales, rhonchi or wheezes Cardio regular rate, regular rhythm, S1 normal heart sound, S2 normal heart sound, no murmurs, no rub and no gallops GI normal to inspection, nondistended, normoactive bowel sounds, soft to palpation, non-tender and non-distended Extremity no clubbing, cyanosis or edema Skin no rashes or lesions noted General Skin Exam: no breakdown Neuro oriented x2, CN's II-XII intact bilaterally, moves all extremities, no focal motor deficits and no sensory deficits noted Sensorium / Orientation: awake and alert Speech: speech normal Psych Patient is mildly confused, she was talking to herself when this examiner walked into the room. Assessment & Plan Assessment/Plan (1) Debility: PLAN: Plan 1. Acute on chronic debility secondary to osteoarthritis-PT and OT are seeing the patient, she will need temporary placement in a senior living facility for inpatient rehab services #2 bacteriuria-patient has low numbers of E. coli which is sensitive to the antibiotics except for the quinolones, patient is no longer on antibiotics #3 hyperlipidemia-patient is on a statin at home #4 osteoarthritis-complicates care, management, recovery, and prognosis Total clinical time spent by myself addressing the patient's medical issues, reviewing all of her data, and collaborating with patient's care team: 25 minutes Charges/Coding Visit Charges Inpatient E&M: 85250 [facility] Hosp L1
[2024-10-16 20:30] VITALS: BP 150/92; PULSE 68; RESP 14; TEMP 36.9; O2SAT 96
[2024-10-17] MEDS: Nystatin Powder 15gm Bottle 1 APPLIC TOPICAL ×3 (05:28→20:57)
[2024-10-17] MEDS: Acetaminophen 500 MG Tablet 1000 MG PO ×3 (05:28→21:02)
[2024-10-17 05:44] VITALS: BP 154/69; PULSE 68; RESP 14; TEMP 36.7; O2SAT 97
[2024-10-17 07:50] VITALS: BP 137/66; PULSE 67; RESP 16; TEMP 36.5; O2SAT 94
[2024-10-17] MEDS: oxyCODONE 5 MG Tablet PO (08:09)
[2024-10-17] MEDS: Arthritis Pain Compound 60 CLICK TUBE TOPICAL ×2 (08:10→21:05)
[2024-10-17] MEDS: Menthol/Lanolin/Calamine/Znox 113 GM Tube 1 APPLIC TOPICAL ×2 (08:10→21:04)
[2024-10-17] MEDS: busPIRone 5 MG Tablet 10 MG PO ×2 (08:10→21:00)
[2024-10-17] MEDS: Enoxaparin 40 MG/0.4 ML Syringe SC ×2 (08:11→21:03)
[2024-10-17] MEDS: Atorvastatin Calcium 40 MG Tablet PO ×2 (08:11→21:00)
--- NOTE | 2024-10-17 11:43 | PN.HOSP_ITS ---
Reason for Visit Reason for Visit: Diagnoses Other malaise (10/13/24) Subjective Subjective Patient was seen and examined today, she exhibits some mild confusion, she talks about going home even though we are making arrangements for her to go to a group home facility. Patient denies any shortness of breath, chest pain or distress at this time Objective Data Objective Data Vital Signs: Vital Signs Temp Pulse Resp BP Pulse Ox O2 Del Method 97.7 F L 67 16 137/66 H 94 Room Air 10/17/24 07:50 10/17/24 07:50 10/17/24 07:50 10/17/24 07:50 10/17/24 07:50 10/17/24 07:56 Oxygen Delivery Method Room Air Weight: 120.5 kg Body Mass Index (BMI) 42.8 Intake & Output: Intake and Output for Last 24 Hours 10/15/24 10/16/24 10/17/24 23:59 23:59 23:59 Intake Total 650 / 650 1600 / 1600 Output Total 500 / 500 3200 / 3200 1100 / 1100 Balance 150 / 150 -1600 / -1600 -1100 / -1100 Lab / Micro Data 10/14/24 06:30 10/14/24 06:30 Micro: Microbiology 10/13/24 11:31 Urine, Random Urine Culture - Final Escherichia coli Physical Exam Narrative alert, oriented x2 and no apparent distress Constitutional Narrative: Patient appears older than her stated age, she has class III obesity General Appearance: cooperative, well kempt and well developed Orientation / Consciousness: awake, oriented to person, oriented to place HEENT normocephalic, head/scalp atraumatic and moist oral mucous membranes HEENT Narrative: Patient has poor dental care Eyes PERRL, EOMs intact bilaterally and conjunctivae normal Neck supple, no JVD, thyroid normal and no carotid bruits General: trachea midline Resp normal respiratory effort, no retractions, no use of accessory muscles and clear to auscultation bilaterally Auscultation: Negative for rales, rhonchi or wheezes Cardio regular rate, regular rhythm, S1 normal heart sound, S2 normal heart sound, no murmurs, no rub and no gallops GI normal to inspection, nondistended, normoactive bowel sounds, soft to palpation, non-tender and non-distended Extremity no clubbing, cyanosis or edema Skin no rashes or lesions noted General Skin Exam: no breakdown Neuro oriented x2, CN's II-XII intact bilaterally, moves all extremities, no focal motor deficits and no sensory deficits noted Sensorium / Orientation: awake and alert Speech: speech normal Psych Patient is mildly confused, she was talking to herself when this examiner walked into the room. Assessment & Plan Assessment/Plan (1) Debility: PLAN: Plan 1. Acute on chronic debility secondary to osteoarthritis-PT and OT are seeing the patient, she will need temporary placement in a group home facility for inpatient rehab services, patient's insurance carrier has denied her approval, this will be appealed, a peer to peer will have to be scheduled for Saturday or Saturday of this coming week. #2 bacteriuria-patient has low numbers of E. coli which is sensitive to the antibiotics except for the quinolones, patient is no longer on antibiotics #3 hyperlipidemia-patient is on a statin at home #4 osteoarthritis-complicates care, management, recovery, and prognosis #5 mild cognitive impairment-complicates care, management, recovery, and prognosis Total clinical time spent by myself addressing the patient's medical issues, reviewing all of her data, and collaborating with patient's care team: 25 minutes Charges/Coding Visit Charges Inpatient E&M: 90437 Subs Hosp L1
[2024-10-17 17:39] VITALS: BP 151/62; PULSE 69; RESP 16; TEMP 36.6; O2SAT 97
[2024-10-17 21:17] VITALS: BP 158/75; PULSE 73; RESP 14; TEMP 36.8; O2SAT 97
[2024-10-18] MEDS: Nystatin Powder 15gm Bottle 1 APPLIC TOPICAL ×3 (05:38→21:36)
[2024-10-18] MEDS: Acetaminophen 500 MG Tablet 1000 MG PO ×3 (05:38→21:35)
[2024-10-18 05:48] VITALS: BP 177/88; PULSE 65; RESP 14; TEMP 36.5; O2SAT 97
[2024-10-18 09:30] VITALS: BP 145/74; PULSE 62; RESP 16; TEMP 36.8; O2SAT 94
[2024-10-18] MEDS: Enoxaparin 40 MG/0.4 ML Syringe SC ×2 (09:41→21:35)
[2024-10-18] MEDS: busPIRone 5 MG Tablet 10 MG PO ×2 (09:41→21:35)
[2024-10-18] MEDS: Menthol/Lanolin/Calamine/Znox 113 GM Tube 1 APPLIC TOPICAL ×2 (09:42→21:36)
[2024-10-18] MEDS: Arthritis Pain Compound 60 CLICK TUBE TOPICAL ×2 (09:42→21:36)
--- NOTE | 2024-10-18 14:59 | PCM.PN.HOSP ---
Reason for Visit Reason for Visit: Diagnoses Other malaise (10/13/24) Subjective Subjective Patient was seen and examined today, she still has some mild confusion when you carry on conversation with her. She does not appear to be in any distress, she continues to complain of feeling overall weak. Objective Data Objective Data Vital Signs: Vital Signs Temp Pulse Resp BP Pulse Ox O2 Del Method 97.7 F L 65 14 177/88 H 97 Room Air 10/18/24 05:48 10/18/24 05:48 10/18/24 05:48 10/18/24 05:48 10/18/24 05:48 10/18/24 09:47 Oxygen Delivery Method Room Air Weight: 120.5 kg Body Mass Index (BMI) 42.8 Intake & Output: Intake and Output for Last 24 Hours 10/16/24 10/17/24 10/18/24 23:59 23:59 23:59 Intake Total 1600 / 1600 Output Total 3200 / 3200 1875 / 2075 500 / 500 Balance -1600 / -1600 -1875 / -2075 -500 / -500 Lab / Micro Data 10/14/24 06:30 10/14/24 06:30 Micro: Microbiology 10/13/24 11:31 Urine, Random Urine Culture - Final Escherichia coli Physical Exam Narrative alert, oriented x2 and no apparent distress Constitutional Narrative: Patient appears older than her stated age, she has class III obesity General Appearance: cooperative, well kempt and well developed Orientation / Consciousness: awake, oriented to person, oriented to place HEENT normocephalic, head/scalp atraumatic and moist oral mucous membranes HEENT Narrative: Patient has poor dental care Eyes PERRL, EOMs intact bilaterally and conjunctivae normal Neck supple, no JVD, thyroid normal and no carotid bruits General: trachea midline Resp normal respiratory effort, no retractions, no use of accessory muscles and clear to auscultation bilaterally Auscultation: Negative for rales, rhonchi or wheezes Cardio regular rate, regular rhythm, S1 normal heart sound, S2 normal heart sound, no murmurs, no rub and no gallops GI normal to inspection, nondistended, normoactive bowel sounds, soft to palpation, non-tender and non-distended Extremity no clubbing, cyanosis or edema Skin no rashes or lesions noted General Skin Exam: no breakdown Neuro oriented x2, CN's II-XII intact bilaterally, moves all extremities, no focal motor deficits and no sensory deficits noted Sensorium / Orientation: awake and alert Speech: speech normal Psych Patient is mildly confused, she was talking to herself when this examiner walked into the room. Assessment & Plan Assessment/Plan (1) Debility: PLAN: Plan 1. Acute on chronic debility secondary to osteoarthritis-PT and OT are seeing the patient, she will need temporary placement in a half-way facility for inpatient rehab services, patient's insurance carrier has denied her approval, this will need to be appealed, a peer to peer will have to be scheduled for Saturday or Saturday of this coming week. #2 bacteriuria-patient has low numbers of E. coli which is sensitive to the antibiotics except for the quinolones, patient is no longer on antibiotics #3 hyperlipidemia-patient is on a statin at home #4 osteoarthritis-complicates care, management, recovery, and prognosis #5 mild cognitive impairment-complicates care, management, recovery, and prognosis Total clinical time spent by myself addressing the patient's medical issues, reviewing all of her data, and collaborating with patient's care team: 25 minutes Charges/Coding Visit Charges Inpatient E&M: 08419 Subs Hosp L1
[2024-10-18 16:28] VITALS: BP 127/71; PULSE 68; RESP 16; TEMP 36.7; O2SAT 95
[2024-10-18 21:30] VITALS: BP 147/64; PULSE 71; RESP 16; TEMP 37; O2SAT 97
[2024-10-19 03:56] VITALS: BP 114/61; PULSE 74; RESP 16; TEMP 36.8; O2SAT 98
[2024-10-19] MEDS: Acetaminophen 500 MG Tablet 1000 MG PO ×2 (04:49→13:10)
[2024-10-19] MEDS: Nystatin Powder 15gm Bottle 1 APPLIC TOPICAL ×2 (04:49→13:11)
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
[2024-10-19 08:01] VITALS: BP 149/57; PULSE 68; RESP 18; TEMP 36.6; O2SAT 97
[2024-10-19 10:14] LABS: Hematocrit 39.4 % (37-47); Hemoglobin 12.7 g/dL (12.0-15.0); Mean Corp Hgb Conc 32.2 g/dL (32-36); Mean Corpuscular Hgb 28.3 pg (27.0-32.0); Mean Corpuscular Volume 87.8 fL (81-99); Mean Platelet Vol. 10.4 fl (6.2-12.0); Platelet Count 210 K/mm3 (150-450); RBC Distribution Width CV 14.3 % (11.6-14.6); RBC Distribution Width SD 45.6 fl (35.1-43.9); Red Blood Count 4.49 M/mm3 (4.2-5.4); White Blood Count 5.2 K/mm3 (4.4-11.0)
[2024-10-19] MEDS: Cephalexin 500 MG Capsule PO ×2 (10:28→13:16)
[2024-10-19] MEDS: Atorvastatin Calcium 40 MG Tablet PO (10:28)
[2024-10-19] MEDS: Enoxaparin 40 MG/0.4 ML Syringe SC (10:28)
[2024-10-19] MEDS: busPIRone 5 MG Tablet 10 MG PO (10:28)
[2024-10-19] MEDS: Menthol/Lanolin/Calamine/Znox 113 GM Tube 1 APPLIC TOPICAL (10:28)
[2024-10-19] MEDS: Arthritis Pain Compound 60 CLICK TUBE TOPICAL (10:29)
[2024-10-19 10:45] LABS: ALB/GLOB Ratio 1.4 RATIO (0.9-2.4); AST(SGOT) 37 U/L (<=31); Alanine Aminotransfer ALT/SGPT 20 U/L (<=34); Albumin, Serum 3.6 g/dL (3.4-4.8); Alkaline Phosphatase 83 U/L (35-104); Anion Gap 9 (5-15); BUN 20 mg/dL (4-19); BUN/Creat Ratio 35.1 RATIO (10-20); Calcium,Total 9.1 mg/dL (7.6-11.0); Carbon Dioxide 24.7 mmol/L (21.0-32.0); Chloride 109 mmol/L (98-108); Creatinine, Serum 0.57 mg/dL (0.70-1.20); EST Glomerular Filtration Rate 92 (>60); Estimated Creatinine Clearance 74.18 ml/min (50-250); Globulin 2.6 g/dL (2.2-4.2); Glucose 128 mg/dL (70-99); Magnesium 2.2 mg/dL (1.5-2.2); Phosphorus 3.6 mg/dL (2.7-4.5); Potassium 4.1 mmol/L (3.3-5.1); Protein, Total 6.2 g/dL (5.9-8.4); Sodium Level 143 mmol/L (133-145); Total Bilirubin 0.25 mg/dL (0.00-1.30)
--- NOTE | 2024-10-19 10:58 | CASEMGMT ---
Addendum entered by Lexis Mckinney 10/19/24 13:32: Social Work- SW received a voicemail from [employer] confirming that they received documentation and have begun the appeal process. For any questions, the [employer] contact number is [phone]. SHERIF Arias Original Note: Social Work- SW received a call from Roshan at [facility] requesting 72 hours of documentation for appeal. [facility] the request. YOVANI faxed over documentation from 10/16-10/19 for appeal process. SW received fax confirmation that fax went through. YOVANI remains available to follow. SHERIF Arias
--- NOTE | 2024-10-19 11:22 | CASEMGMT ---
Per Rosana Bourgeois at [facility], [facility] can admit [facility] SW updated. Cintia Travis DC Planning Asst.
--- NOTE | 2024-10-19 11:45 | DS.PCM_ITS ---
Providers Date of Admission: 10/13/24 Primary Care Physician: Dr. Josh Monroy MD Reason For Visit: GENERALIZED WEAKNESS, KNEE AND HOP PAIN, UTI Diagnosis Discharge Diagnosis (1) Debility: Status: Acute Code(s): R53.81 - Other malaise Plan Patient is an 79-year-old lady admitted with adult failure to thrive 1. Physical deconditioning ? 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 Imaging studies did not show any overt fracture but severe degenerative disease. Admitted to regular nursing floor for pain management. Also requested for PT OT eval and vp digital marketing social media and crm to assist with discharge planning 2. Acute cystitis with E. coli ? Patient did receive a single dose of ceftriaxone. Started on Keflex to complete therapy 3. Generalized osteoarthritis ? Patient is on Tylenol as needed 4. Class III obesity with BMI of 42.9 ? Complicating care weight loss advised 5. Anxiety - Patient is on BuSpar did continue 6. Dyslipidemia ?Patient is on statin therapy, continued at home dose 7. DVT prophylaxis ? On enoxaparin Time spent in the patient's overall evaluation, decision-making process, review of diagnostic data, adjustment of management, discussion with other providers, nursing and ancillary staff involved in patient's care documentation, 37 Minutes Medications at Discharge Home Medications rosuvastatin 20 mg tablet 20 mg PO DAILY 05/12/23 buspirone 10 mg tablet 10 mg PO BID 10/13/24 Arthritis Pain Compound 3 click topical BID ##0 10/19/24 acetaminophen 500 mg tablet 1,000 mg (2 x 500 mg) PO Q8 #0 tabs 10/19/24 albuterol sulfate 2.5 mg/3 mL (0.083 %) solution for nebulization 2.5 mg (3 mL) inhalation Q2H PRN PRN SOB &/OR WHEEZING #0 mL 10/19/24 cephalexin 500 mg capsule 500 mg PO Q8 5 days #0 caps 10/19/24 melatonin 3 mg tablet 3 mg PO QHS PRN PRN Insomnia #0 tabs 10/19/24 Physical Exam Narrative GENERAL: cooperative HEENT: Atraumatic; normocephalic EYES; Anicteric, Normal Conjunctiva NECK; supple, normal thyroid, RESPIRATORY: Diminished to auscultation CARDIOVASCULAR: Regular S1 S2, GI: soft, normoactive bowel sounds, : No Renal angle tenderness; EXTREMITIES: No edema, no clubbing, with overgrown toenails MUSCULOSKELETAL: no muscle wasting NEURO: Awake; no lateralizing signs. SKIN: No Rash PSYCH; Flat affect Weight / BMI Weight Weight: 120.5 kg Body Mass Index (BMI) 42.8 ABG / Lab / Microbiology Data 10/19/24 10:01 10/19/24 10:01 Laboratory: Laboratory Results - last 24 hr 10/19/24 10:01: WBC 5.2, RBC 4.49, Hgb 12.7, Hct 39.4, MCV 87.8, MCH 28.3, MCHC 32.2, RDW Std Deviation 45.6 H, RDW Coeff of Vitaliy 14.3, Plt Count 210, MPV 10.4, Sodium 143, Potassium 4.1, Chloride 109 H, Carbon Dioxide 24.7, Anion Gap 9, BUN 20 H, Creatinine 0.57 L, Estim Creat Clear Calc 74.18, Est GFR (MDRD) Non-Af 92, BUN/Creatinine Ratio 35.1 H, Glucose 128 H, Calcium 9.1, Phosphorus 3.6, Magnesium 2.2, Total Bilirubin 0.25, AST 37 H, ALT 20, Alkaline Phosphatase 83, Total Protein 6.2, Albumin 3.6, Globulin 2.6, Albumin/Globulin Ratio 1.4 Microbiology: Microbiology 10/13/24 11:31 Urine, Random Urine Culture - Final Escherichia coli D/C Instructions Discharge Diet: No restrictions Discharge Activity: Return to Normal Activity Call your doctor if you observe: Fever of 101 or Higher, Shortness of breath, Fainting spells and Chest pain DC O2, CPAP, BIPAP Needs Home O2 Discharge instructions: No Meaningful Use Info Meaningful Use Meaningful Use Diagnoses (Choose all that apply): None applicable Ischemic Stroke Statin Dosing Therapy Reference: STATIN DOSE THERAPY REFERENCE: * Patients > 75 years receive moderate or high dose statin therapy. * Patients 75 years or YOUNGER should receive HIGH intensity statin dose unless contraindicated. You will be required to document reason for non-treatment if statin daily dose does not meet guidelines. HIGH DOSE STATIN THERAPY DAILY Atorvastatin > than or = to 40 mg Rosuvastatin > than or = to 20 mg Amlodipine + Atorvastatin > than or = to 2.5/40 mg Ezetimibe + Simvastatin 10/80 mg Simvastatin 80mg Discharge Plan Admission Admit Date/Time: 10/13/24 13:41 Attending Provider: Cristian Walton Primary Care Provider: Josh Monroy Consulting Providers: Tarsha Wilkinson; Fabián Franks Discharge Orders/Prescriptions Prescriptions: New Arthritis Pain Compound 3 click topical BID Qty: 0 0RF albuterol sulfate 2.5 mg /3 mL (0.083 %) Solution For Nebulization 2.5 mg inhalation Q2H PRN PRN (Reason: SOB &/OR WHEEZING) Qty: 0 0RF melatonin 3 mg Tablet 3 mg PO QHS PRN PRN (Reason: Insomnia) Qty: 0 0RF acetaminophen 500 mg Tablet 1,000 mg PO Q8 Qty: 0 0RF cephalexin 500 mg Capsule 500 mg PO Q8 5 Days Qty: 0 0RF Continued rosuvastatin 20 mg tablet 20 mg PO DAILY Patient Comments: take 1 tablet by mouth once daily buspirone 10 mg tablet 10 mg PO BID Discontinued acetaminophen 500 mg capsule 1,500 mg PO BID Referrals / Follow Up: Josh Monroy MD [Primary Care Provider] - Within 1 Week Disposition Disposition (needs filled in before D/C Order can be placed): [facility] Facility Charges/Coding Visit Charges Inpatient E&M: 69825 Disch Hosp >30min
--- NOTE | 2024-10-19 11:48 | TREXTCAR_ITS ---
Diet Diet Order/Speech Therapy: 10/13/24 15:39 Diet: Regular - General Food consistency:: Regular Liquid Consistency:: Regular/Thin DC O2, CPAP, BIPAP needs Home O2 Discharge instructions: No Wound(s) RT ABD FOLD: Wound Type: open skin fold Therapies Physical Therapy: Eval and Treat Occupational Therapy: Eval and Treat Problem/Diagnosis (1) Debility: Status: Acute Code(s): R53.81 - Other malaise Plan Patient is an 79-year-old lady admitted with adult failure to thrive 1. Physical deconditioning ? 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 Imaging studies did not show any overt fracture but severe degenerative disease. Admitted to regular nursing floor for pain management. Also requested for PT OT eval and 7th grade social studies teacher to assist with discharge planning 2. Acute cystitis with E. coli ? Patient did receive a single dose of ceftriaxone. Started on Keflex to complete therapy 3. Generalized osteoarthritis ? Patient is on Tylenol as needed 4. Class III obesity with BMI of 42.9 ? Complicating care weight loss advised 5. Anxiety - Patient is on BuSpar did continue 6. Dyslipidemia ?Patient is on statin therapy, continued at home dose 7. DVT prophylaxis ? On enoxaparin Time spent in the patient's overall evaluation, decision-making process, review of diagnostic data, adjustment of management, discussion with other providers, nursing and ancillary staff involved in patient's care documentation, 37 Minutes Allergies/Procedures Done in Hospital Allergies lidocaine Allergy (Verified 10/13/24 10:02) Itching Sulfa (Sulfonamide Antibiotics) Allergy (Verified 10/13/24 10:02) Rash Type of Care/Length of Stay Estimated LOS: Convalescent Care Less Than 30 days Type of Care Needed: Skilled Rehab Potential: Good Prognosis: Good Additional Orders/Day of Discharge Day of Discharge: 10/19/24 Dietary and Speech Recommendations Dietitian Recommendations/Changes: Continue Regular diet to optimize oral intakes. Discharge Plan Admission Admit Date/Time: 10/13/24 13:41 Attending Provider: Cristian Walton Primary Care Provider: Josh Monroy Consulting Providers: Tarsha Wilkinson; Fabián Franks Discharge Orders/Prescriptions Prescriptions: New Arthritis Pain Compound 3 click topical BID Qty: 0 0RF albuterol sulfate 2.5 mg /3 mL (0.083 %) Solution For Nebulization 2.5 mg inhalation Q2H PRN PRN (Reason: SOB &/OR WHEEZING) Qty: 0 0RF melatonin 3 mg Tablet 3 mg PO QHS PRN PRN (Reason: Insomnia) Qty: 0 0RF acetaminophen 500 mg Tablet 1,000 mg PO Q8 Qty: 0 0RF cephalexin 500 mg Capsule 500 mg PO Q8 5 Days Qty: 0 0RF Continued rosuvastatin 20 mg tablet 20 mg PO DAILY Patient Comments: take 1 tablet by mouth once daily buspirone 10 mg tablet 10 mg PO BID Discontinued acetaminophen 500 mg capsule 1,500 mg PO BID Referrals / Follow Up: Josh Monroy MD [Primary Care Provider] - Within 1 Week Disposition Disposition (needs filled in before D/C Order can be placed): Care Home Facility
--- NOTE | 2024-10-19 12:03 | PHA.DC.MR.R ---
Pharmacy [place] Med Reconciliation Pharmacy Service has performed discharge medication reconciliation for this patient. The patient's discharge medication list was reviewed for discrepancies and discrepancies were resolved. Medications at Discharge Home Medications rosuvastatin 20 mg tablet 20 mg PO DAILY 05/12/23 buspirone 10 mg tablet 10 mg PO BID 10/13/24 Arthritis Pain Compound 3 click topical BID ##0 10/19/24 acetaminophen 500 mg tablet 1,000 mg (2 x 500 mg) PO Q8 #0 tabs 10/19/24 albuterol sulfate 2.5 mg/3 mL (0.083 %) solution for nebulization 2.5 mg (3 mL) inhalation Q2H PRN PRN SOB &/OR WHEEZING #0 mL 10/19/24 cephalexin 500 mg capsule 500 mg PO Q8 5 days #0 caps 10/19/24 melatonin 3 mg tablet 3 mg PO QHS PRN PRN Insomnia #0 tabs 10/19/24
--- NOTE | 2024-10-19 12:51 | CASEMGMT ---
Social Work Facility reports that they will accept pt pending precert. Physician updated and pt is ready for discharge today.? PASRR form completed in [facility]ENS. SW met with pt and they are agreeable to discharge plan as stated above.?Pt reports that SW does not need to call SO, Mervin, however, pt was not oriented in conversation. SW updated DCA on pt mentation. DCA notified of discharge ability; DCA to complete discharge and final notifications and arrangements. . Disposition:[facility], skilled level of care SHERIF Arias
[2024-10-19 13:00] VITALS: BP 145/81; PULSE 75; RESP 18; TEMP 36.6; O2SAT 97
--- NOTE | 2024-10-19 13:08 | CASEMGMT ---
Discharge Planning Discharge orders, signed med list, and transport time sent to [facility]. Physicians will transport pt by wheelchair at 3p. Nursing, SW, pt, and his Sig Other, toy Jeffries. Cintia Travis DC Planning Asst.
--- NOTE | 2024-10-19 13:44 | CASEMGMT ---
Late entry for 10/14/24 Received vm from Christi at [facility] in regards to vm this RN CM had left them. Christi states pt is not a current pt with their office and patient has not been seen in their office.
--- NOTE | 2024-10-20 10:02 | CASEMGMT ---
Addendum entered by Lexis Mckinney 10/20/24 15:14: 10:17- YOVANI spoke with YOVANI Lopez, who provided a fax number of [phone] to fax rep form to. Lilian will fax back to YOVANI upon being signed. 12:11- YOVANI called to follow up with Lilian to ensure form had been signed and verify if return fax had been initiated. YOVANI left a voicemail. 1:51- YOVANI received a voicemail from Lilian reporting that she provided form to e business specialist who was to have pt sign then return. SW awaiting rep form, which YOVANI will then fax to [facility]. SHERIF Arias Original Note: Social Work- YOVANI received a call from [facility] reporting that pt needs an authorized sales representative jewelry form completed for appeal process. YOVANI called Anita Finn and left a message requesting a return call for coordination of care. SHERIF Arias
--- NOTE | 2024-10-21 08:57 | CASEMGMT ---
Addendum entered by Lexis Mckinney 10/21/24 17:03: YOVANI received fax confirmation of receipt. YOVANI called Tracy at [facility] to confirm receipt as well and verify no other documentation is needed at this time. Roshan confirmed receipt and reports no additional information needed at this time. SHERIF Arias Original Note: Social Work- YOVANI received returned signed rep form. YOVANI faxed rep form to [facility]. YOAVNI remains available to follow. SHERIF Arias
--- NOTE | 2024-10-22 09:04 | CASEMGMT ---
Social Work- received a call from and spoke with Katelin Stanford, to verbally provide update on date of discharge and discharge location. Hien will communicate with medical concierge and a decision will be offered following medical concierge review. SHERIF Arias
--- NOTE | 2024-10-27 10:42 | CASEMGMT ---
Social Work- SW spoke with Tracy at [facility] who reports that pt appeal was overturned and SNF stay approved. Reference #: [id number]. SHERIF Arias
== END 2024-10-19 13:52 | disposition skilled nursing facility (03) ==
LOC: ED 14:06 → MS3 14:12
PROVIDERS: Admitting Provider Internal Medicine; Emergency Provider Emergency Medicine; PCP Family Medicine; Visit Provider Internal Medicine
DX: M16.12 Unilateral primary osteoarthritis, left hip (principal); E66.813 Obesity, class 3; Z68.41 Body mass index [BMI] 40.0-44.9, adult; N30.00 Acute cystitis without hematuria; R53.81 Other malaise; M25.562 Pain in left knee; F41.9 Anxiety disorder, unspecified; M25.561 Pain in right knee; I10 Essential (primary) hypertension; R26.2 Difficulty in walking, not elsewhere classified; R53.1 Weakness; B96.20 Unspecified Escherichia coli [E. coli] as the cause of diseases classified elsewhere; M19.90 Unspecified osteoarthritis, unspecified site; J45.909 Unspecified asthma, uncomplicated; Z79.899 Other long term (current) drug therapy; R47.89 Other speech disturbances; F09 Unspecified mental disorder due to known physiological condition
CPT/HCPCS: 36415; 73502; 73564; 80048; 80053; 80307; 81001; 82607; 83735; 84100; 84443; 85025; 85027; 87077; 87086; 87088; 87186; 96361; 96365; 96366; 96372; 97116; 97162; 97166; 97530; 97535; 99221; 99285; A4216; G0378